=== PATIENT | female | born 1940 | race Caucasian/White ===

== ENCOUNTER 2017-10-08 14:10 | Inpatient (IN) | payer MEDICARE, MEDICAID ==
[~2017-10-08] VITALS: Ht 147.3 cm; Wt 94.3 kg
[~2017-10-08 14:10] MED LIST: ALBU0.63 NEB; DEXT1DRO9 OP; DILT180C89 PO; DOCU-28 PO; FERR325T29 PO; FLUT1DIS7 INH; FURO-149 PO; FURO-150 PO; HYDR-3965 PO; HYPR15DR4 EACHEYE; IPRA3AMP IH; LEVA15HF4 INH; LIDO700A5 TP; LORA10TA7 PO; NORepinephrine 1 mg/ml inj IV ONE; OMEP20CA4 PO; POTA8TAB8 PO; PREG100C PO; SPIR25TA3 PO; TIOT18CA7 IH
[2017-10-08] MEDS ORDERED: normal saline 1000ml 1,000 ML IV ONE (14:48)
[2017-10-08] MEDS ORDERED: ipratropium/albuterol 3ml nebule NEB ONE (14:50)
[2017-10-08 15:20] LABS: ABG BASE EXCESS -9.2 mmol/L (-2.0-3.0); ABG HCO3 14.5 mmol/L (22.0-26.0); ABG OXYGEN SATURATION 83.7 % (95-98); ABG PCO2 (T) 27.1 mmHg (32.0-45.0); ALLEN'S TEST Positive; FCOHb 0.8 % (0.5-1.5); FMetHb 0.1 % (0.3-1.12); FO2Hb 82.9 % (94-100); PATIENT TEMPERATURE 37.9; TOTAL HEMOGLOBIN 12.9 G/dl (12.0-16.0)
[2017-10-08] MEDS ORDERED: normal saline 1000ML IV soln IV ONE (15:40)
[2017-10-08] MEDS ORDERED: levoFLOXACIN-Levaquin 750MG/D5 150 ML IV ONE (15:40)
[2017-10-08] MEDS ORDERED: vancomycin/NS 1 GM ADD-VANTAGE 250 ML IV ONE (15:40)
[2017-10-08 15:41] LABS: INR 1.1 INR; PARTIAL THROMBOPLASTIN TIME 28 SECONDS (22-32); PROTHROMBIN TIME 11.5 SECONDS (9.0-12.0)
[2017-10-08 15:56] LABS: ALANINE AMINOTRANSFERASE 18 U/L (12-78); ALBUMIN 3.1 G/DL (3.4-5.0); ALKALINE PHOSPHATASE 176 IU/L (46-116); ANION GAP 20 (8-16); ASPARTATE AMINO TRANSFERASE 19 U/L (10-37); BILIRUBIN,TOTAL 0.5 MG/DL (0.1-1.0); BLOOD UREA NITROGEN 81 MG/DL (7-18); BUN/CREATININE RATIO 27.6 (6.6-38.0); CALCIUM 7.6 MG/DL (8.5-10.1); CHLORIDE 101 MMOL/L (99-107); CREATININE 2.94 MG/DL (0.40-0.90); GLUCOSE 99 MG/DL (70-104); MAGNESIUM 1.2 MG/DL (1.5-2.4); PHOSPHORUS 5.4 MG/DL (2.3-4.5); POTASSIUM 3.5 MMOL/L (3.5-5.1); SODIUM 139 MMOL/L (135-145); TOTAL CARBON DIOXIDE 18.5 MMOL/L (24-32); TOTAL PROTEIN 6.3 G/DL (6.4-8.2); eGFR 16 ML/MIN
[2017-10-08 16:45] LABS: BASOPHILS % (AUTO) 0.2 % (0-1); EOSINOPHILS % (AUTO) 0.1 % (0-6); HEMATOCRIT 35.7 % (35.0-45.0); HEMOGLOBIN 12.5 g/dl (12.0-16.0); LYMPHOCYTES # (AUTO) 0.4 X10'3 (1.1-4.8); LYMPHOCYTES % (AUTO) 3.2 % (21-51); MEAN CORPUSCULAR HEMOGLOBIN 30.1 PG (27.0-31.0); MONOCYTES # (AUTO) 0.7 X10'3 (0-0.9); MONOCYTES % (AUTO) 5.9 % (2-12); NEUTROPHILS # (AUTO) 11.2 X10'3 (1.8-7.7); NEUTROPHILS % (AUTO) 90.6 % (42-75); RED BLOOD COUNT 4.15 X10'6 (4.20-5.60); RED CELL DISTRIBUTION WIDTH 13.4 % (11.5-14.5); WHITE BLOOD COUNT 12.4 X10'3 (4.5-11.0)
[2017-10-08 17:08] LABS: MEAN PLATELET VOLUME 10.5 FL (7.4-10.4)
[2017-10-08 17:11] LABS: PLATELET COUNT 141 X10'3 (140-440)
[2017-10-08 17:17] LABS: CLARITY,URINE TURBID (Clear); COLOR,URINE STRAW (Yellow); GLUCOSE, URINE NEGATIVE (Neg); KETONES,URINE NEGATIVE (Neg); LEUKOCYTE ESTERASE ,URINE LARGE (Neg); NITRITES, URINE NEGATIVE (Neg); OCCULT BLOOD,URINE SMALL (Neg); PROTEIN,URINE 30 mg/dl (Neg); UROBILINOGEN,URINE 0.2 E.U/dL (0.2-1.0)
[2017-10-08 17:20] LABS: UA COLLECTION TYPE FOLEY CATH
[2017-10-08 17:25] LABS: MUCUS STRANDS NONE SEEN /LPF (Neg); RENAL CELLS, URINE FEW /HPF; SQUAMOUS EPITHELIAL CELL,UR MODERATE /LPF (FEW); TRANSITIONAL EPI CELLS,URINE FEW /HPF
[2017-10-08 17:26] LABS: BACTERIA,URINE 4+ /HPF (Neg); RBC,URINE 0-2 /HPF (0-2); WBC,URINE TNTC /HPF (0-4)
[2017-10-08 17:33] LABS: GIANT PLATELET FEW; LARGE PLATELETS MODERATE; PLATELET ESTIMATE NORMAL; TOTAL CELLS COUNTED 100
[2017-10-08 17:34] LABS: TOXIC GRANULATION 2+; TOXIC VACUOLATION 1+
[2017-10-08] MEDS ORDERED: succinylcholine 20mg/ml inj IV ONE (17:40)
[2017-10-08] MEDS ORDERED: etomidate 2mg/ml inj. IV ONE (17:40)
[2017-10-08] MEDS ORDERED: midazolam 100mg in NS 100ml 100 ML IV ONE (17:40)
[2017-10-08] MEDS ORDERED: MIDAZolam 5mg/ml 2ml vial IV ONE (17:40)
[2017-10-08 17:51] LABS: ABG BASE EXCESS -15.3 mmol/L (-2.0-3.0); ABG HCO3 11.5 mmol/L (22.0-26.0); ABG OXYGEN SATURATION 92.5 % (95-98); ABG PCO2 (T) 30.6 mmHg (32.0-45.0); ABG PH (T) 7.193 (7.350-7.450); ABG PO2 (T) 74.4 mmHg (83-108); ALLEN'S TEST Positive; FCOHb 0.6 % (0.5-1.5); FMetHb 0.1 % (0.3-1.12); FO2Hb 91.9 % (94-100); RESPIRATORY RATE 14 b/min; TOTAL HEMOGLOBIN 12.3 G/dl (12.0-16.0)
[2017-10-08] MEDS ORDERED: piperacillin/tazo 3.375gm/50ml 50 ML IV ONE (18:00)
[2017-10-08] MEDS: NORepinephrine 8mg/ 250ml NS 250 ML IV SCH (18:20)
[2017-10-08] MEDS ORDERED: meropenem inj 500 MG in normal saline 100ml IV soln 100 ML IV STA (18:34)
[2017-10-08] MEDS ORDERED: methylPREDNISolone sod succ 125mg/2ml vial IV ONE (18:55)
[2017-10-08] MEDS ORDERED: ondansetron/PF 4mg/2ml inj IV PRN (19:05)
[2017-10-08] MEDS ORDERED: bisacodyl 10mg suppository rectal RC PRN (19:05)
[2017-10-08] MEDS ORDERED: magnesium 2GM in 50ml NS 50 ML IV PRN (19:05)
[2017-10-08] MEDS ORDERED: potassium Cl 40MEQ/NS 500ml 500 ML IV PRN (19:05)
[2017-10-08] MEDS ORDERED: acetaminophen 325mg tablet PO PRN (19:05)
[2017-10-08] MEDS ORDERED: Neutra Phos packet PO PRN (19:05)
[2017-10-08] MEDS ORDERED: sodium phosphate inj. 30 MMOL in dextrose 5%-water 250 ML IV PRN (19:05)
[2017-10-08] MEDS ORDERED: magnesium Cl slow-release 64mg tablet PO PRN (19:05)
[2017-10-08] MEDS ORDERED: potassium Cl 20 mEq SR tablet PO PRN ×2 (19:05)
[2017-10-08 19:06] LABS: ABG BASE EXCESS -13.5 mmol/L (-2.0-3.0); ABG HCO3 12.6 mmol/L (22.0-26.0); ABG OXYGEN SATURATION 92.5 % (95-98); ABG PCO2 (T) 29.7 mmHg (32.0-45.0); ABG PH (T) 7.242 (7.350-7.450); ABG PO2 (T) 71.6 mmHg (83-108); ALLEN'S TEST Positive; FCOHb 0.4 % (0.5-1.5); FMetHb 0.2 % (0.3-1.12); FO2Hb 91.9 % (94-100); MINUTE VOLUME 12 L/min; PATIENT TEMPERATURE 36.7; PEEP 5 cm H2O; RESPIRATORY RATE 14 b/min; RESPIRATORY RATE (OBSERVED) 22 b/min; TIDAL VOLUME 500 mL; TOTAL HEMOGLOBIN 12.5 G/dl (12.0-16.0)
[2017-10-08] MEDS: sodium bicarbonate (8.4%) inj. 150 MEQ in dextrose 5%-water 1,000 ML IV SCH ×2 (19:15→22:03)
[2017-10-08] MEDS ORDERED: meropenem inj 500 MG in normal saline 100ml IV soln 100 ML IV SCH (20:00)
[2017-10-08] MEDS ORDERED: hydrocortisone sod succ/PF 250mg/2ml inj. IV SCH (20:00)
[2017-10-08] MEDS ORDERED: albumin (Human) 5% 250 ML IV solution IV STA (20:08)
[2017-10-08] MEDS ORDERED: albumin (human) 25% 100 ML IV solution IV ONE (20:10)
[2017-10-08] MEDS ORDERED: vasopressin inj. 60 UNIT in normal saline 100ml IV soln 97 ML IV SCH (20:10)
[2017-10-08] MEDS: magnesium 4gm in 100ml NS 100 ML IV PRN (20:20)
[2017-10-08] MEDS: famotidine/PF 10 mg/ml inj IV SCH (20:20)
[2017-10-08 22:00] VITALS: BP 109/45
[2017-10-08] MEDS: docusate sod 100mg capsule PO SCH (22:03)
[2017-10-08] MEDS: heparin, porcine 5000 units/ml vial SQ SCH (22:03)
[2017-10-08 23:00] VITALS: BP 129/58
[2017-10-08 23:36] LABS: OXYGEN SATURATION (MIXED VEN) 69.7 % (60-80); PO2 MIXED VENOUS (TEMP COR) 41.5 mmHg (35-46)
[2017-10-09] VITALS (24 sets, daily range): BP systolic 93–131; BP diastolic 52–72
[2017-10-09] LABS: ABG BASE EXCESS -13.5 mmol/L (-2.0-3.0); ABG OXYGEN SATURATION 94.8 % (95-98); ABG PCO2 (T) 28.1 mmHg (32.0-45.0); ABG PH (T) 7.251 (7.350-7.450); ABG PO2 (T) 85.3 mmHg (83-108); ALLEN'S TEST Positive; FCOHb 0.3 % (0.5-1.5); FMetHb 0.3 % (0.3-1.12); FO2Hb 94.2 % (94-100); MINUTE VOLUME 12 L/min; PATIENT TEMPERATURE 37.7; PEEP 5 cm H2O; RESPIRATORY RATE 14 b/min; RESPIRATORY RATE (OBSERVED) 22 b/min; TIDAL VOLUME 500 mL; TOTAL HEMOGLOBIN 12.2 G/dl (12.0-16.0)
[2017-10-09] MEDS ORDERED: sodium bicarbonate (8.4%) 1 mEq/ml syringe IV ONE (00:10)
[2017-10-09] MEDS ORDERED: sodium bicarbonate (8.4%) 1 mEq/ml syringe ONE (00:20)
[2017-10-09] MEDS: VANCOMYCIN LEVEL IV SCH (02:08)
[2017-10-09] MEDS: hydrocortisone sod succ/PF 100mg/2ml inj. IV SCH ×4 (02:10→19:32)
[2017-10-09 02:20] LABS: BASOPHILS % (AUTO) 0 % (0-1); EOSINOPHILS % (AUTO) 0 % (0-6); HEMATOCRIT 34.1 % (35.0-45.0); HEMOGLOBIN 11.7 g/dl (12.0-16.0); LYMPHOCYTES # (AUTO) 0.2 X10'3 (1.1-4.8); LYMPHOCYTES % (AUTO) 1.4 % (21-51); MEAN CORPUSCULAR HEMOGLOBIN 29.9 PG (27.0-31.0); MEAN CORPUSCULAR HGB CONC 34.3 % (33.0-36.5); MEAN CORPUSCULAR VOLUME 87.2 FL (78-98); MEAN PLATELET VOLUME 12.4 FL (7.4-10.4); MONOCYTES % (AUTO) 6.2 % (2-12); NEUTROPHILS # (AUTO) 15.7 X10'3 (1.8-7.7); NEUTROPHILS % (AUTO) 92.4 % (42-75); PLATELET COUNT 135 X10'3 (140-440); RED BLOOD COUNT 3.91 X10'6 (4.20-5.60); RED CELL DISTRIBUTION WIDTH 13.9 % (11.5-14.5)
[2017-10-09] MEDS ORDERED: glucagon, human recombinant 1mg kit SUBCUT PRN (02:25)
[2017-10-09] MEDS ORDERED: insulin Lispro (HumaLOG) vial - multi-dose SQ SCH (02:25)
[2017-10-09] MEDS ORDERED: dextrose 50%-water 50ml dispensing syringe IV PRN (02:25)
[2017-10-09] MEDS ORDERED: dextrose ORAL solution 15 GM/59 ML bottle PO PRN ×2 (02:25)
[2017-10-09] MEDS ORDERED: MESSAGE TO PHARMACY PO ONE (02:25)
[2017-10-09 02:38] LABS: ALANINE AMINOTRANSFERASE 26 U/L (12-78); ALBUMIN 2.9 G/DL (3.4-5.0); ALBUMIN/GLOBULIN RATIO 1.2 (1.1-1.5); ALKALINE PHOSPHATASE 109 IU/L (46-116); ANION GAP 22 (8-16); ASPARTATE AMINO TRANSFERASE 34 U/L (10-37); BLOOD UREA NITROGEN 77 MG/DL (7-18); BUN/CREATININE RATIO 27.3 (6.6-38.0); CALCIUM 6.3 MG/DL (8.5-10.1); CHLORIDE 102 MMOL/L (99-107); CREATININE 2.82 MG/DL (0.40-0.90); GLUCOSE 211 MG/DL (70-104); MAGNESIUM 2.2 MG/DL (1.5-2.4); PHOSPHORUS 4.8 MG/DL (2.3-4.5); SODIUM 141 MMOL/L (135-145); TOTAL CARBON DIOXIDE 17.2 MMOL/L (24-32); TOTAL CELLS COUNTED 100; TOTAL PROTEIN 5.3 G/DL (6.4-8.2); VANCOMYCIN,RANDOM 12.6 UG/ML; eGFR 16 ML/MIN
[2017-10-09 02:39] LABS: GIANT PLATELET FEW; LARGE PLATELETS FEW; PLATELET ESTIMATE NORMAL; TOXIC GRANULATION 2+; TOXIC VACUOLATION 1+
[2017-10-09] MEDS: NORepinephrine 8mg/ 250ml NS 250 ML IV SCH ×5 (02:39→23:32)
[2017-10-09 02:48] LABS: HEMOGLOBIN A1C 5.4 % (4.5-6.2)
[2017-10-09] MEDS ORDERED: potassium Cl 40MEQ/250ML bag 500 ML IV ONE (03:15)
[2017-10-09] MEDS ORDERED: insulin Lispro (HumaLOG) vial - multi-dose SQ ONE (03:15)
[2017-10-09] MEDS: potassium Cl 40MEQ/250ML bag 250 ML IV PRN ×2 (03:19→06:02)
[2017-10-09 03:46] LABS: ABG BASE EXCESS -9.8 mmol/L (-2.0-3.0); ABG HCO3 14.4 mmol/L (22.0-26.0); ABG PCO2 (T) 29.1 mmHg (32.0-45.0); ABG PO2 (T) 114.4 mmHg (83-108); ALLEN'S TEST Positive; FCOHb 0.3 % (0.5-1.5); FMetHb 0.2 % (0.3-1.12); FO2Hb 96.5 % (94-100); MINUTE VOLUME 12 L/min; PATIENT TEMPERATURE 38.6; PEEP 5 cm H2O; RESPIRATORY RATE 14 b/min; RESPIRATORY RATE (OBSERVED) 22 b/min; TIDAL VOLUME 500 mL; TOTAL HEMOGLOBIN 12.2 G/dl (12.0-16.0)
[2017-10-09] MEDS: acetaminophen 325mg tablet PO PRN ×3 (05:36→22:42)
[2017-10-09] MEDS: sodium bicarbonate (8.4%) inj. 150 MEQ in dextrose 5%-water 1,000 ML IV SCH (05:52)
[2017-10-09] MEDS ORDERED: vancomycin/NS 1 GM ADD-VANTAGE 250 ML IV PRN (06:00)
[2017-10-09] MEDS ORDERED: vancomycin/NS 1 GM ADD-VANTAGE 250 ML IV ONE (08:25)
[2017-10-09] MEDS: meropenem inj 500 MG in normal saline 100ml IV soln 100 ML IV SCH ×2 (09:30→19:31)
[2017-10-09] MEDS: famotidine/PF 10 mg/ml inj IV SCH ×2 (09:30→19:31)
[2017-10-09] MEDS: docusate sod 100mg capsule PO SCH ×2 (09:31→19:33)
[2017-10-09] MEDS: heparin, porcine 5000 units/ml vial SQ SCH ×2 (09:31→19:32)
[2017-10-09] MEDS: insulin regular, human vial - multi-dose SQ SCH ×2 (14:00→20:14)
[2017-10-09] MEDS ORDERED: hypromellose ophthalmic drops EACHEYE PRN (14:25)
[2017-10-09] MEDS ORDERED: albuterol 2.5 MG/3 ML nebule NEB PRN (14:55)
[2017-10-09] MEDS ORDERED: polyvinyl alcohol ophthalmic drops 15ml bottle EACHEYE PRN (15:02)
[2017-10-09] MEDS: ipratropium/albuterol 3ml nebule IH SCH ×2 (16:30→21:15)
[2017-10-09] MEDS: polyvinyl alcohol ophthalmic drops 15ml bottle EACHEYE SCH (19:30)
[2017-10-09] MEDS: silver sulfadiazine cream 400gm jar TP SCH (19:30)
[2017-10-09] MEDS: lactobacillus rhamnosus 10,000 MMU CELLS/CAPSULE PO SCH (19:30)
[2017-10-09] MEDS: pregabalin 75mg capsule PO SCH (19:31)
[2017-10-09] MEDS: pregabalin 25mg capsule PO SCH (19:31)
[2017-10-09] MEDS ORDERED: docusate sod 100mg capsule PO SCH (20:00)
[2017-10-09] MEDS: insulin glargine (Lantus) pen - multi-dose SQ SCH (20:15)
[2017-10-09] MEDS ORDERED: non-formulary drug (Albuterol Sulfate 1 VIAL) NEB SCH (21:00)
[2017-10-09] MEDS ORDERED: furosemide 20MG tablet PO PRN (21:00)
[2017-10-09 23:03] LABS: ALBUMIN 2.3 G/DL (3.4-5.0); ANION GAP 18 (8-16); BLOOD UREA NITROGEN 71 MG/DL (7-18); BUN/CREATININE RATIO 23.4 (6.6-38.0); CHLORIDE 103 MMOL/L (99-107); CREATININE 3.03 MG/DL (0.40-0.90); GLUCOSE 297 MG/DL (70-104); MAGNESIUM 1.7 MG/DL (1.5-2.4); PHOSPHORUS 4.8 MG/DL (2.3-4.5); POTASSIUM 3.9 MMOL/L (3.5-5.1); SODIUM 142 MMOL/L (135-145); TOTAL CARBON DIOXIDE 21.1 MMOL/L (24-32); eGFR 15 ML/MIN
[2017-10-09 23:14] LABS: CALCIUM 5.9 MG/DL (8.5-10.1)
[2017-10-10] VITALS (24 sets, daily range): BP systolic 90–155; BP diastolic 55–81
[2017-10-10] MEDS ORDERED: calcium chloride 100 MG/1 ML inj IV ONE (00:15)
[2017-10-10] MEDS: polyvinyl alcohol ophthalmic drops 15ml bottle EACHEYE SCH ×4 (02:28→20:37)
[2017-10-10] MEDS: hydrocortisone sod succ/PF 100mg/2ml inj. IV SCH ×4 (02:28→20:27)
[2017-10-10] MEDS: insulin regular, human vial - multi-dose SQ SCH ×4 (02:30→20:43)
[2017-10-10] MEDS: VANCOMYCIN LEVEL IV SCH (02:31)
[2017-10-10 02:51] LABS: ALANINE AMINOTRANSFERASE 39 U/L (12-78); ALBUMIN 2.4 G/DL (3.4-5.0); ALBUMIN/GLOBULIN RATIO 0.9 (1.1-1.5); ALKALINE PHOSPHATASE 93 IU/L (46-116); ANION GAP 16 (8-16); ASPARTATE AMINO TRANSFERASE 37 U/L (10-37); BILIRUBIN,TOTAL 0.8 MG/DL (0.1-1.0); BLOOD UREA NITROGEN 72 MG/DL (7-18); BUN/CREATININE RATIO 23.8 (6.6-38.0); CALCIUM 6.8 MG/DL (8.5-10.1); CHLORIDE 103 MMOL/L (99-107); CREATININE 3.03 MG/DL (0.40-0.90); GLUCOSE 296 MG/DL (70-104); MAGNESIUM 1.8 MG/DL (1.5-2.4); PHOSPHORUS 4.8 MG/DL (2.3-4.5); POTASSIUM 3.7 MMOL/L (3.5-5.1); SODIUM 141 MMOL/L (135-145); TOTAL CARBON DIOXIDE 22.1 MMOL/L (24-32); TOTAL PROTEIN 5.1 G/DL (6.4-8.2); VANCOMYCIN,RANDOM 19.5 UG/ML; eGFR 15 ML/MIN
[2017-10-10 02:59] LABS: BASOPHILS % (AUTO) 0 % (0-1); EOSINOPHILS % (AUTO) 0 % (0-6); HEMATOCRIT 32.7 % (35.0-45.0); HEMOGLOBIN 11.2 g/dl (12.0-16.0); LYMPHOCYTES # (AUTO) 0.5 X10'3 (1.1-4.8); LYMPHOCYTES % (AUTO) 1.7 % (21-51); MEAN CORPUSCULAR HEMOGLOBIN 29.9 PG (27.0-31.0); MEAN CORPUSCULAR HGB CONC 34.3 % (33.0-36.5); MEAN CORPUSCULAR VOLUME 87.4 FL (78-98); MEAN PLATELET VOLUME 12.1 FL (7.4-10.4); MONOCYTES # (AUTO) 1.4 X10'3 (0-0.9); MONOCYTES % (AUTO) 5.2 % (2-12); NEUTROPHILS # (AUTO) 25.9 X10'3 (1.8-7.7); NEUTROPHILS % (AUTO) 93.1 % (42-75); PLATELET COUNT 104 X10'3 (140-440); RED BLOOD COUNT 3.75 X10'6 (4.20-5.60); RED CELL DISTRIBUTION WIDTH 14.4 % (11.5-14.5)
[2017-10-10 03:10] LABS: WHITE BLOOD COUNT 27.9 X10'3 (4.5-11.0)
[2017-10-10 03:11] LABS: ABG BASE EXCESS -2.7 mmol/L (-2.0-3.0); ABG HCO3 20.6 mmol/L (22.0-26.0); ABG PCO2 (T) 31.2 mmHg (32.0-45.0); ABG PH (T) 7.437 (7.350-7.450); ABG PO2 (T) 76.2 mmHg (83-108); ALLEN'S TEST Positive; FCOHb 0.3 % (0.5-1.5); FMetHb 0.2 % (0.3-1.12); FO2Hb 94.5 % (94-100); MINUTE VOLUME 10 L/min; PEEP 5 cm H2O; RESPIRATORY RATE 14 b/min; RESPIRATORY RATE (OBSERVED) 18 b/min; TIDAL VOLUME 500 mL; TOTAL HEMOGLOBIN 12.1 G/dl (12.0-16.0)
[2017-10-10 03:53] LABS: PLATELET ESTIMATE DECREASED; TOTAL CELLS COUNTED 100
[2017-10-10 03:54] LABS: LARGE PLATELETS FEW; TOXIC GRANULATION 2+; TOXIC VACUOLATION 1+
[2017-10-10] MEDS: midazolam 100mg in NS 100ml 100 ML IV PRN ×2 (04:17→08:34)
[2017-10-10] MEDS: NORepinephrine 8mg/ 250ml NS 250 ML IV SCH ×3 (05:35→22:22)
[2017-10-10] MEDS: ipratropium/albuterol 3ml nebule IH SCH ×4 (07:01→19:16)
[2017-10-10] MEDS: lactobacillus rhamnosus 10,000 MMU CELLS/CAPSULE PO SCH ×2 (07:06→16:36)
[2017-10-10] MEDS: LIDOcaine 5% patch TP SCH (07:35)
[2017-10-10] MEDS: loratadine 10mg tablet PO SCH (07:44)
[2017-10-10] MEDS: famotidine/PF 10 mg/ml inj IV SCH (07:44)
[2017-10-10] MEDS: diltiazem CD 180mg cap (once-daily) PO SCH (07:45)
[2017-10-10] MEDS: pregabalin 25mg capsule PO SCH ×2 (07:45→20:27)
[2017-10-10] MEDS: heparin, porcine 5000 units/ml vial SQ SCH (07:45)
[2017-10-10] MEDS: pregabalin 75mg capsule PO SCH ×2 (07:45→20:28)
[2017-10-10] MEDS: spironolactone 25 MG tablet PO SCH (07:45)
[2017-10-10] MEDS: ferrous sulfate 325mg tablet PO SCH (07:46)
[2017-10-10] MEDS: docusate sod 100mg capsule PO SCH (07:46)
[2017-10-10] MEDS: furosemide 40mg tablet PO SCH ×2 (07:46→13:32)
[2017-10-10] MEDS: silver sulfadiazine cream 400gm jar TP SCH (07:47)
[2017-10-10] MEDS: meropenem inj 500 MG in normal saline 100ml IV soln 100 ML IV SCH ×2 (07:47→20:27)
[2017-10-10] MEDS ORDERED: fluticasone/vilanterol 200mcg/25mcg inhaler IH SCH (08:00)
[2017-10-10] MEDS ORDERED: pantoprazole 40mg Tablet.DR PO SCH (08:00)
[2017-10-10] MEDS ORDERED: non-formulary drug (Tiotropium Bromide* (Spiriva*) 18 MCG) IH SCH (08:00)
[2017-10-10] MEDS: sodium bicarbonate (8.4%) inj. 150 MEQ in dextrose 5%-water 1,000 ML IV SCH ×2 (08:25→19:01)
[2017-10-10] MEDS ORDERED: FLU VACC QS2017-18 36MOS UP/PF 60 MCG/0.5 ML SYRINGE IMVAC ONE (10:00)
[2017-10-10] MEDS ORDERED: metoprolol tartrate 1mg/ml inj IV ONE (18:20)
[2017-10-10] MEDS ORDERED: lactulose 20gm/30ml cup PO PRN (19:05)
[2017-10-10] MEDS: docusate sodium 100mg/10ml UD cup NG SCH (20:00)
[2017-10-10] MEDS: enoxaparin 60mg/0.6ml syringe SUBCUT SCH (20:43)
[2017-10-10] MEDS: insulin glargine (Lantus) pen - multi-dose SQ SCH (22:26)
[2017-10-10] MEDS: ipratropium/albuterol 3ml nebule NEB PRN (23:16)
[2017-10-11] VITALS (24 sets, daily range): BP systolic 90–119; BP diastolic 51–67
[2017-10-11] MEDS: insulin regular, human vial - multi-dose SQ SCH ×2 (02:23→21:01)
[2017-10-11] MEDS: hydrocortisone sod succ/PF 100mg/2ml inj. IV SCH ×4 (02:24→20:30)
[2017-10-11] MEDS: polyvinyl alcohol ophthalmic drops 15ml bottle EACHEYE SCH ×4 (02:24→20:30)
[2017-10-11] MEDS: VANCOMYCIN LEVEL IV SCH (03:00)
[2017-10-11] MEDS: ipratropium/albuterol 3ml nebule NEB PRN ×2 (03:26→11:31)
[2017-10-11 03:41] LABS: ABG BASE EXCESS 5.4 mmol/L (-2.0-3.0); ABG HCO3 28.2 mmol/L (22.0-26.0); ABG OXYGEN SATURATION 96.4 % (95-98); ABG PCO2 (T) 32.7 mmHg (32.0-45.0); ABG PO2 (T) 80.3 mmHg (83-108); ALLEN'S TEST Positive; FCOHb 0.3 % (0.5-1.5); FMetHb 0.1 % (0.3-1.12); MINUTE VOLUME 10 L/min; PATIENT TEMPERATURE 35.8; PEEP 5 cm H2O; RESPIRATORY RATE 14 b/min; RESPIRATORY RATE (OBSERVED) 16 b/min; TIDAL VOLUME 500 mL; TOTAL HEMOGLOBIN 10.1 G/dl (12.0-16.0)
[2017-10-11 04:10] LABS: BASOPHILS % (AUTO) 0 % (0-1); EOSINOPHILS % (AUTO) 0 % (0-6); HEMATOCRIT 27.8 % (35.0-45.0); HEMOGLOBIN 9.4 g/dl (12.0-16.0); MEAN CORPUSCULAR VOLUME 87.4 FL (78-98); NEUTROPHILS # (AUTO) 20.6 X10'3 (1.8-7.7); RED BLOOD COUNT 3.18 X10'6 (4.20-5.60)
[2017-10-11 04:12] LABS: LYMPHOCYTES # (AUTO) 0.5 X10'3 (1.1-4.8); LYMPHOCYTES % (AUTO) 2.2 % (21-51); MEAN CORPUSCULAR HEMOGLOBIN 29.6 PG (27.0-31.0); MEAN CORPUSCULAR HGB CONC 33.8 % (33.0-36.5); MONOCYTES # (AUTO) 0.6 X10'3 (0-0.9); MONOCYTES % (AUTO) 2.9 % (2-12); NEUTROPHILS % (AUTO) 94.9 % (42-75); PLATELET COUNT 65 X10'3 (140-440); RED CELL DISTRIBUTION WIDTH 14.1 % (11.5-14.5); WHITE BLOOD COUNT 21.7 X10'3 (4.5-11.0)
[2017-10-11 04:32] LABS: ALANINE AMINOTRANSFERASE 37 U/L (12-78); ALBUMIN/GLOBULIN RATIO 0.7 (1.1-1.5); ALKALINE PHOSPHATASE 94 IU/L (46-116); ANION GAP 11 (8-16); ASPARTATE AMINO TRANSFERASE 25 U/L (10-37); BILIRUBIN,TOTAL 0.6 MG/DL (0.1-1.0); BLOOD UREA NITROGEN 72 MG/DL (7-18); BUN/CREATININE RATIO 28.3 (6.6-38.0); CALCIUM 6.1 MG/DL (8.5-10.1); CHLORIDE 102 MMOL/L (99-107); CREATININE 2.54 MG/DL (0.40-0.90); GLUCOSE 137 MG/DL (70-104); MAGNESIUM 1.4 MG/DL (1.5-2.4); PHOSPHORUS 2.6 MG/DL (2.3-4.5); PREALBUMIN 11.1 MG/DL (19-36); SODIUM 143 MMOL/L (135-145); TOTAL CARBON DIOXIDE 30.2 MMOL/L (24-32); TOTAL PROTEIN 4.8 G/DL (6.4-8.2); VANCOMYCIN,RANDOM 13.8 UG/ML; eGFR 18 ML/MIN
[2017-10-11 04:39] LABS: POTASSIUM 2.2 MMOL/L (3.5-5.1)
[2017-10-11] MEDS: sodium bicarbonate (8.4%) inj. 150 MEQ in dextrose 5%-water 1,000 ML IV SCH (04:45)
[2017-10-11] MEDS ORDERED: potassium Cl 40MEQ/250ML bag 500 ML IV ONE (04:50)
[2017-10-11] MEDS: potassium Cl 40MEQ/250ML bag 250 ML IV PRN ×4 (04:55→17:15)
[2017-10-11 05:12] LABS: BANDS% (MANUAL) 9 % (0-10); LYMPHOCYTES % (MANUAL) 2 % (21-51); METAMYLEOCYTES% (MANUAL) 1 % (0-0); MONOCYTES % (MANUAL) 5 % (2-12); NEUTROPHILS % (MANUAL) 83 % (42-75); PLATELET ESTIMATE DECREASED; TOTAL CELLS COUNTED 100
[2017-10-11 05:13] LABS: LARGE PLATELETS FEW; TOXIC VACUOLATION 1+
[2017-10-11] MEDS: magnesium 4gm in 100ml NS 100 ML IV PRN (06:06)
[2017-10-11] MEDS: ipratropium/albuterol 3ml nebule IH SCH ×3 (07:18→18:34)
[2017-10-11] MEDS: enoxaparin 60mg/0.6ml syringe SUBCUT SCH (08:00)
[2017-10-11] MEDS: furosemide 40mg tablet PO SCH ×2 (08:00→14:00)
[2017-10-11] MEDS: diltiazem CD 180mg cap (once-daily) PO SCH ×2 (08:00→08:42)
[2017-10-11] MEDS: spironolactone 25 MG tablet PO SCH (08:00)
[2017-10-11] MEDS: docusate sodium 100mg/10ml UD cup NG SCH ×2 (08:00→20:00)
[2017-10-11] MEDS: lactobacillus rhamnosus 10,000 MMU CELLS/CAPSULE PO SCH ×2 (08:25→17:15)
[2017-10-11] MEDS ORDERED: vancomycin/NS 1 GM ADD-VANTAGE 250 ML IV ONE (08:30)
[2017-10-11] MEDS: meropenem inj 500 MG in normal saline 100ml IV soln 100 ML IV SCH ×2 (08:36→20:30)
[2017-10-11] MEDS: ferrous sulfate 325mg tablet PO SCH (08:42)
[2017-10-11] MEDS: pregabalin 75mg capsule PO SCH ×2 (08:42→20:30)
[2017-10-11] MEDS: loratadine 10mg tablet PO SCH (08:42)
[2017-10-11] MEDS: pregabalin 25mg capsule PO SCH ×2 (08:42→20:30)
[2017-10-11] MEDS: silver sulfadiazine cream 400gm jar TP SCH (08:43)
[2017-10-11] MEDS: LIDOcaine 5% patch TP SCH (08:47)
[2017-10-11] MEDS ORDERED: FLU VACC QS2017-18 36MOS UP/PF 60 MCG/0.5 ML SYRINGE IMVAC ONE (10:00)
[2017-10-11 13:22] LABS: MAGNESIUM 3.2 MG/DL (1.5-2.4)
[2017-10-11 13:30] LABS: POTASSIUM 2.9 MMOL/L (3.5-5.1)
[2017-10-11] MEDS: NORepinephrine 8mg/ 250ml NS 250 ML IV SCH (16:53)
[2017-10-11] MEDS: insulin glargine (Lantus) pen - multi-dose SQ SCH (21:00)
[2017-10-11] MEDS ORDERED: potassium Cl 40MEQ/250ML bag 250 ML IV ONE (23:25)
[2017-10-12] VITALS (24 sets, daily range): BP systolic 86–121; BP diastolic 52–72
[2017-10-12] MEDS: potassium Cl 40MEQ/250ML bag 250 ML IV PRN ×2 (00:10→19:49)
[2017-10-12] MEDS: polyvinyl alcohol ophthalmic drops 15ml bottle EACHEYE SCH ×4 (02:38→22:04)
[2017-10-12] MEDS: VANCOMYCIN LEVEL IV SCH (02:38)
[2017-10-12] MEDS: hydrocortisone sod succ/PF 100mg/2ml inj. IV SCH ×4 (02:38→20:14)
[2017-10-12] MEDS: insulin regular, human vial - multi-dose SQ SCH ×4 (02:47→22:06)
[2017-10-12 04:41] LABS: ABG BASE EXCESS 0.8 mmol/L (-2.0-3.0); ABG HCO3 22.9 mmol/L (22.0-26.0); ABG OXYGEN SATURATION 95.6 % (95-98); ABG PCO2 (T) 28.8 mmHg (32.0-45.0); ABG PH (T) 7.519 (7.350-7.450); ABG PO2 (T) 82.6 mmHg (83-108); ALLEN'S TEST Positive; FCOHb 0.3 % (0.5-1.5); FO2Hb 95.3 % (94-100); MINUTE VOLUME 8 L/min; PATIENT TEMPERATURE 37.5; PEEP 5 cm H2O; RESPIRATORY RATE 12 b/min; RESPIRATORY RATE (OBSERVED) 16 b/min; TIDAL VOLUME 500 mL; TOTAL HEMOGLOBIN 10.3 G/dl (12.0-16.0)
[2017-10-12 06:50] LABS: HEMATOCRIT 28.9 % (35.0-45.0); HEMOGLOBIN 9.8 g/dl (12.0-16.0); MEAN CORPUSCULAR HEMOGLOBIN 29.5 PG (27.0-31.0); MEAN CORPUSCULAR HGB CONC 33.9 % (33.0-36.5); MEAN CORPUSCULAR VOLUME 87.1 FL (78-98); MEAN PLATELET VOLUME 12.7 FL (7.4-10.4); PLATELET COUNT 63 X10'3 (140-440); RED BLOOD COUNT 3.32 X10'6 (4.20-5.60); RED CELL DISTRIBUTION WIDTH 14.2 % (11.5-14.5)
[2017-10-12 06:58] LABS: WHITE BLOOD COUNT 25.9 X10'3 (4.5-11.0)
[2017-10-12] MEDS: ipratropium/albuterol 3ml nebule IH SCH ×4 (07:09→18:29)
[2017-10-12 07:21] LABS: ALANINE AMINOTRANSFERASE 36 U/L (12-78); ALBUMIN 1.9 G/DL (3.4-5.0); ALBUMIN/GLOBULIN RATIO 0.6 (1.1-1.5); ALKALINE PHOSPHATASE 126 IU/L (46-116); ANION GAP 13 (8-16); ASPARTATE AMINO TRANSFERASE 23 U/L (10-37); BILIRUBIN,TOTAL 0.5 MG/DL (0.1-1.0); BLOOD UREA NITROGEN 79 MG/DL (7-18); BUN/CREATININE RATIO 36.4 (6.6-38.0); CALCIUM 7.1 MG/DL (8.5-10.1); CHLORIDE 112 MMOL/L (99-107); CREATININE 2.17 MG/DL (0.40-0.90); GLUCOSE 132 MG/DL (70-104); MAGNESIUM 2.9 MG/DL (1.5-2.4); PHOSPHORUS 1.5 MG/DL (2.3-4.5); POTASSIUM 3.5 MMOL/L (3.5-5.1); SODIUM 149 MMOL/L (135-145); TOTAL CARBON DIOXIDE 24.2 MMOL/L (24-32); VANCOMYCIN,RANDOM 21.4 UG/ML; eGFR 22 ML/MIN
[2017-10-12 07:53] LABS: PLATELET ESTIMATE DECREASED; TOTAL CELLS COUNTED 100
[2017-10-12] MEDS: docusate sodium 100mg/10ml UD cup NG SCH ×2 (08:00→20:00)
[2017-10-12] MEDS: spironolactone 25 MG tablet PO SCH (08:00)
[2017-10-12] MEDS: furosemide 40mg tablet PO SCH (08:00)
[2017-10-12] MEDS: diltiazem CD 180mg cap (once-daily) PO SCH (08:00)
[2017-10-12] MEDS: lactobacillus rhamnosus 10,000 MMU CELLS/CAPSULE PO SCH ×2 (08:03→20:15)
[2017-10-12] MEDS: ferrous sulfate 325mg tablet PO SCH (08:04)
[2017-10-12] MEDS: loratadine 10mg tablet PO SCH (08:04)
[2017-10-12] MEDS: pregabalin 25mg capsule PO SCH ×2 (08:04→20:14)
[2017-10-12] MEDS: pregabalin 75mg capsule PO SCH ×2 (08:04→20:14)
[2017-10-12] MEDS: meropenem inj 500 MG in normal saline 100ml IV soln 100 ML IV SCH ×3 (08:05→23:44)
[2017-10-12] MEDS: silver sulfadiazine cream 400gm jar TP SCH (08:07)
[2017-10-12] MEDS: LIDOcaine 5% patch TP SCH (09:01)
[2017-10-12] MEDS: sodium phosphate inj. 15 MMOL in dextrose 5%-water 150 ML IV PRN ×2 (09:07→20:23)
[2017-10-12] MEDS: levoTHYROXINE sod inj. 100mcg/5 ml vial IV SCH (12:11)
[2017-10-12] MEDS ORDERED: LEVO100T PO (12:45)
[2017-10-12] MEDS: NORepinephrine 8mg/ 250ml NS 250 ML IV SCH (15:33)
[2017-10-12 18:22] LABS: MAGNESIUM 2.8 MG/DL (1.5-2.4); PHOSPHORUS 2.1 MG/DL (2.3-4.5)
[2017-10-12 18:23] LABS: POTASSIUM 2.8 MMOL/L (3.5-5.1)
[2017-10-12] MEDS: insulin glargine (Lantus) pen - multi-dose SQ SCH (22:08)
[2017-10-13] VITALS (24 sets, daily range): BP systolic 88–133; BP diastolic 53–80
[2017-10-13] MEDS: potassium Cl 40MEQ/250ML bag 250 ML IV PRN ×2 (00:26→17:57)
[2017-10-13] MEDS: hydrocortisone sod succ/PF 100mg/2ml inj. IV SCH ×4 (01:56→19:40)
[2017-10-13] MEDS: polyvinyl alcohol ophthalmic drops 15ml bottle EACHEYE SCH ×4 (01:57→19:40)
[2017-10-13] MEDS: insulin regular, human vial - multi-dose SQ SCH ×4 (02:02→20:52)
[2017-10-13 03:10] LABS: ABG HCO3 21.4 mmol/L (22.0-26.0); ABG OXYGEN SATURATION 96.2 % (95-98); ABG PCO2 (T) 28.1 mmHg (32.0-45.0); ABG PO2 (T) 89.6 mmHg (83-108); ALLEN'S TEST Positive; FCOHb 0.3 % (0.5-1.5); FMetHb 0.1 % (0.3-1.12); FO2Hb 95.8 % (94-100); MINUTE VOLUME 8 L/min; PATIENT TEMPERATURE 36.8; PEEP 5 cm H2O; RESPIRATORY RATE 12 b/min; RESPIRATORY RATE (OBSERVED) 15 b/min; TIDAL VOLUME 500 mL; TOTAL HEMOGLOBIN 10.4 G/dl (12.0-16.0)
[2017-10-13 05:17] LABS: BASOPHILS % (AUTO) 0 % (0-1); EOSINOPHILS % (AUTO) 0 % (0-6); HEMATOCRIT 29.2 % (35.0-45.0); HEMOGLOBIN 9.8 g/dl (12.0-16.0); LYMPHOCYTES # (AUTO) 0.5 X10'3 (1.1-4.8); LYMPHOCYTES % (AUTO) 2.4 % (21-51); MEAN CORPUSCULAR HEMOGLOBIN 29.2 PG (27.0-31.0); MEAN CORPUSCULAR HGB CONC 33.5 % (33.0-36.5); MEAN CORPUSCULAR VOLUME 87.3 FL (78-98); MEAN PLATELET VOLUME 11.2 FL (7.4-10.4); MONOCYTES # (AUTO) 0.7 X10'3 (0-0.9); MONOCYTES % (AUTO) 3.2 % (2-12); NEUTROPHILS # (AUTO) 20.4 X10'3 (1.8-7.7); NEUTROPHILS % (AUTO) 94.4 % (42-75); PLATELET COUNT 53 X10'3 (140-440); RED BLOOD COUNT 3.34 X10'6 (4.20-5.60); RED CELL DISTRIBUTION WIDTH 14.6 % (11.5-14.5); WHITE BLOOD COUNT 21.6 X10'3 (4.5-11.0)
[2017-10-13 06:14] LABS: ALANINE AMINOTRANSFERASE 30 U/L (12-78); ALBUMIN 1.7 G/DL (3.4-5.0); ALBUMIN/GLOBULIN RATIO 0.5 (1.1-1.5); ALKALINE PHOSPHATASE 125 IU/L (46-116); ANION GAP 13 (8-16); ASPARTATE AMINO TRANSFERASE 19 U/L (10-37); BILIRUBIN,TOTAL 0.4 MG/DL (0.1-1.0); BLOOD UREA NITROGEN 86 MG/DL (7-18); BUN/CREATININE RATIO 43.4 (6.6-38.0); CALCIUM 7.4 MG/DL (8.5-10.1); CHLORIDE 117 MMOL/L (99-107); CREATININE 1.98 MG/DL (0.40-0.90); GLUCOSE 145 MG/DL (70-104); MAGNESIUM 2.7 MG/DL (1.5-2.4); PHOSPHORUS 3.2 MG/DL (2.3-4.5); POTASSIUM 3.6 MMOL/L (3.5-5.1); SODIUM 153 MMOL/L (135-145); TOTAL CARBON DIOXIDE 23.5 MMOL/L (24-32); TOTAL PROTEIN 4.9 G/DL (6.4-8.2); eGFR 24 ML/MIN
[2017-10-13 07:09] LABS: LARGE PLATELETS FEW; PLATELET ESTIMATE DECREASED
[2017-10-13] MEDS: ipratropium/albuterol 3ml nebule IH SCH ×4 (07:33→18:26)
[2017-10-13] MEDS: docusate sodium 100mg/10ml UD cup NG SCH ×2 (08:00→19:41)
[2017-10-13] MEDS: pregabalin 75mg capsule PO SCH ×2 (09:09→19:40)
[2017-10-13] MEDS: pregabalin 25mg capsule PO SCH ×2 (09:09→19:40)
[2017-10-13] MEDS: levoTHYROXINE sod inj. 100mcg/5 ml vial IV SCH (09:10)
[2017-10-13] MEDS: ferrous sulfate 325mg tablet PO SCH (09:10)
[2017-10-13] MEDS: loratadine 10mg tablet PO SCH (09:10)
[2017-10-13] MEDS: lactobacillus rhamnosus 10,000 MMU CELLS/CAPSULE PO SCH ×2 (09:10→19:40)
[2017-10-13] MEDS: meropenem inj 500 MG in normal saline 100ml IV soln 100 ML IV SCH ×2 (09:11→15:43)
[2017-10-13] MEDS: silver sulfadiazine cream 400gm jar TP SCH (09:12)
[2017-10-13] MEDS: LIDOcaine 5% patch TP SCH (09:12)
[2017-10-13 16:39] LABS: MAGNESIUM 2.7 MG/DL (1.5-2.4); POTASSIUM 3.1 MMOL/L (3.5-5.1)
[2017-10-13] MEDS: NORepinephrine 8mg/ 250ml NS 250 ML IV SCH (18:07)
[2017-10-13] MEDS ORDERED: dextrose 5% water 500ml 500 ML IV ONE (19:30)
[2017-10-13] MEDS: diltiazem 30mg tablet PO SCH (19:40)
[2017-10-13] MEDS: insulin glargine (Lantus) pen - multi-dose SQ SCH (20:54)
[2017-10-14] VITALS (23 sets, daily range): BP systolic 96–128; BP diastolic 50–91
[2017-10-14] MEDS: meropenem inj 500 MG in normal saline 100ml IV soln 100 ML IV SCH ×3 (00:46→15:42)
[2017-10-14] MEDS: diltiazem 30mg tablet PO SCH ×4 (01:52→20:55)
[2017-10-14] MEDS: polyvinyl alcohol ophthalmic drops 15ml bottle EACHEYE SCH ×4 (01:52→20:56)
[2017-10-14] MEDS: hydrocortisone sod succ/PF 100mg/2ml inj. IV SCH ×3 (01:52→14:58)
[2017-10-14] MEDS: insulin regular, human vial - multi-dose SQ SCH ×3 (01:57→21:25)
[2017-10-14 03:03] LABS: BASOPHILS % (AUTO) 0 % (0-1); EOSINOPHILS # (AUTO) 0.3 X10'3 (0-0.9); EOSINOPHILS % (AUTO) 1.3 % (0-6); HEMATOCRIT 28.4 % (35.0-45.0); HEMOGLOBIN 9.5 g/dl (12.0-16.0); LYMPHOCYTES # (AUTO) 0.6 X10'3 (1.1-4.8); MEAN CORPUSCULAR HEMOGLOBIN 29.1 PG (27.0-31.0); MEAN CORPUSCULAR HGB CONC 33.4 % (33.0-36.5); MEAN PLATELET VOLUME 12.3 FL (7.4-10.4); MONOCYTES # (AUTO) 0.8 X10'3 (0-0.9); MONOCYTES % (AUTO) 4.1 % (2-12); NEUTROPHILS # (AUTO) 18.5 X10'3 (1.8-7.7); NEUTROPHILS % (AUTO) 91.6 % (42-75); PLATELET COUNT 71 X10'3 (140-440); RED BLOOD COUNT 3.26 X10'6 (4.20-5.60); RED CELL DISTRIBUTION WIDTH 14.9 % (11.5-14.5); WHITE BLOOD COUNT 20.1 X10'3 (4.5-11.0)
[2017-10-14 03:08] LABS: ALANINE AMINOTRANSFERASE 34 U/L (12-78); ALBUMIN 1.7 G/DL (3.4-5.0); ALBUMIN/GLOBULIN RATIO 0.5 (1.1-1.5); ALKALINE PHOSPHATASE 125 IU/L (46-116); ANION GAP 14 (8-16); ASPARTATE AMINO TRANSFERASE 15 U/L (10-37); BILIRUBIN,TOTAL 0.4 MG/DL (0.1-1.0); BLOOD UREA NITROGEN 100 MG/DL (7-18); BUN/CREATININE RATIO 52.4 (6.6-38.0); CALCIUM 7.8 MG/DL (8.5-10.1); CHLORIDE 118 MMOL/L (99-107); CREATININE 1.91 MG/DL (0.40-0.90); GLUCOSE 147 MG/DL (70-104); MAGNESIUM 2.7 MG/DL (1.5-2.4); PHOSPHORUS 2.9 MG/DL (2.3-4.5); POTASSIUM 3.6 MMOL/L (3.5-5.1); SODIUM 154 MMOL/L (135-145); TOTAL CARBON DIOXIDE 22.2 MMOL/L (24-32); TOTAL PROTEIN 4.9 G/DL (6.4-8.2); eGFR 25 ML/MIN
[2017-10-14 03:55] LABS: ABG BASE EXCESS -5.2 mmol/L (-2.0-3.0); ABG HCO3 17.5 mmol/L (22.0-26.0); ABG OXYGEN SATURATION 96.1 % (95-98); ABG PCO2 (T) 25.5 mmHg (32.0-45.0); ABG PH (T) 7.454 (7.350-7.450); ABG PO2 (T) 91.1 mmHg (83-108); ALLEN'S TEST Positive; FCOHb 0.3 % (0.5-1.5); FMetHb 0.3 % (0.3-1.12); FO2Hb 95.5 % (94-100); MINUTE VOLUME 9 L/min; PATIENT TEMPERATURE 37.4; PEEP 5 cm H2O; RESPIRATORY RATE 12 b/min; RESPIRATORY RATE (OBSERVED) 18 b/min; TIDAL VOLUME 500 mL
[2017-10-14 04:09] LABS: PLATELET ESTIMATE DECREASED; TOTAL CELLS COUNTED 100
[2017-10-14 04:10] LABS: LARGE PLATELETS FEW; POLYCHROMASIA FEW
[2017-10-14] MEDS: ipratropium/albuterol 3ml nebule IH SCH ×4 (07:29→18:23)
[2017-10-14] MEDS: docusate sodium 100mg/10ml UD cup NG SCH ×2 (08:00→20:00)
[2017-10-14] MEDS: levoTHYROXINE sod inj. 100mcg/5 ml vial IV SCH (08:26)
[2017-10-14] MEDS: LIDOcaine 5% patch TP SCH (08:26)
[2017-10-14] MEDS: pregabalin 25mg capsule PO SCH ×2 (08:28→20:55)
[2017-10-14] MEDS: lactobacillus rhamnosus 10,000 MMU CELLS/CAPSULE PO SCH ×2 (08:28→20:55)
[2017-10-14] MEDS: pregabalin 75mg capsule PO SCH ×2 (08:28→20:55)
[2017-10-14] MEDS: ferrous sulfate 325mg tablet PO SCH (08:29)
[2017-10-14] MEDS: loratadine 10mg tablet PO SCH (08:29)
[2017-10-14] MEDS: silver sulfadiazine cream 400gm jar TP SCH (08:30)
[2017-10-14] MEDS: HYDROcodone/acetaminophen 5mg/325mg tablet PO PRN (20:57)
[2017-10-14] MEDS: insulin glargine (Lantus) pen - multi-dose SQ SCH (21:13)
[2017-10-15] VITALS (21 sets, daily range): BP systolic 94–151; BP diastolic 50–96
[2017-10-15] MEDS: meropenem inj 500 MG in normal saline 100ml IV soln 100 ML IV SCH ×3 (00:19→16:18)
[2017-10-15] MEDS: hydrocortisone sod succ/PF 100mg/2ml inj. IV SCH ×4 (02:35→21:21)
[2017-10-15] MEDS: diltiazem 30mg tablet PO SCH ×4 (02:35→21:22)
[2017-10-15] MEDS: polyvinyl alcohol ophthalmic drops 15ml bottle EACHEYE SCH ×4 (02:37→21:20)
[2017-10-15] MEDS: insulin regular, human vial - multi-dose SQ SCH ×3 (02:53→21:33)
[2017-10-15 04:51] LABS: ABG BASE EXCESS -6.4 mmol/L (-2.0-3.0); ABG HCO3 16.5 mmol/L (22.0-26.0); ABG OXYGEN SATURATION 96.2 % (95-98); ABG PCO2 (T) 25.3 mmHg (32.0-45.0); ABG PH (T) 7.434 (7.350-7.450); ABG PO2 (T) 94.4 mmHg (83-108); ALLEN'S TEST Positive; FCOHb 0.3 % (0.5-1.5); FO2Hb 95.9 % (94-100); MINUTE VOLUME 8 L/min; PATIENT TEMPERATURE 37.3; PEEP 5 cm H2O; RESPIRATORY RATE 12 b/min; RESPIRATORY RATE (OBSERVED) 5 b/min; TIDAL VOLUME 500 mL; TOTAL HEMOGLOBIN 10.2 G/dl (12.0-16.0)
[2017-10-15 05:12] LABS: BASOPHILS % (AUTO) 0 % (0-1); EOSINOPHILS # (AUTO) 0.3 X10'3 (0-0.9); EOSINOPHILS % (AUTO) 1.2 % (0-6); HEMATOCRIT 28.1 % (35.0-45.0); HEMOGLOBIN 9.4 g/dl (12.0-16.0); LYMPHOCYTES # (AUTO) 0.7 X10'3 (1.1-4.8); LYMPHOCYTES % (AUTO) 3.1 % (21-51); MEAN CORPUSCULAR HEMOGLOBIN 29.1 PG (27.0-31.0); MEAN CORPUSCULAR HGB CONC 33.4 % (33.0-36.5); MEAN CORPUSCULAR VOLUME 86.9 FL (78-98); MEAN PLATELET VOLUME 13.2 FL (7.4-10.4); MONOCYTES # (AUTO) 0.8 X10'3 (0-0.9); MONOCYTES % (AUTO) 3.4 % (2-12); NEUTROPHILS # (AUTO) 21.6 X10'3 (1.8-7.7); NEUTROPHILS % (AUTO) 92.3 % (42-75); PLATELET COUNT 97 X10'3 (140-440); RED BLOOD COUNT 3.23 X10'6 (4.20-5.60); RED CELL DISTRIBUTION WIDTH 14.8 % (11.5-14.5); WHITE BLOOD COUNT 23.4 X10'3 (4.5-11.0)
[2017-10-15 05:44] LABS: ALANINE AMINOTRANSFERASE 174 U/L (12-78); ALBUMIN 1.7 G/DL (3.4-5.0); ALBUMIN/GLOBULIN RATIO 0.5 (1.1-1.5); ALKALINE PHOSPHATASE 162 IU/L (46-116); ANION GAP 15 (8-16); ASPARTATE AMINO TRANSFERASE 171 U/L (10-37); BILIRUBIN,TOTAL 0.7 MG/DL (0.1-1.0); BLOOD UREA NITROGEN 113 MG/DL (7-18); BUN/CREATININE RATIO 59.8 (6.6-38.0); CALCIUM 7.8 MG/DL (8.5-10.1); CHLORIDE 118 MMOL/L (99-107); CREATININE 1.89 MG/DL (0.40-0.90); GLUCOSE 105 MG/DL (70-104); MAGNESIUM 2.5 MG/DL (1.5-2.4); POTASSIUM 3.4 MMOL/L (3.5-5.1); PREALBUMIN 18.4 MG/DL (19-36); SODIUM 153 MMOL/L (135-145); TOTAL CARBON DIOXIDE 20.4 MMOL/L (24-32); TOTAL PROTEIN 4.9 G/DL (6.4-8.2); eGFR 26 ML/MIN
[2017-10-15 06:16] LABS: LARGE PLATELETS FEW; PLATELET ESTIMATE DECREASED; POLYCHROMASIA FEW; TOTAL CELLS COUNTED 100
[2017-10-15] MEDS ORDERED: potassium Cl oral solution 20 MEQ/15 ML PO PRN ×2 (06:57)
[2017-10-15] MEDS: ipratropium/albuterol 3ml nebule IH SCH ×4 (07:15→18:40)
[2017-10-15] MEDS: docusate sodium 100mg/10ml UD cup NG SCH ×2 (08:00→20:00)
[2017-10-15] MEDS: LIDOcaine 5% patch TP SCH (08:37)
[2017-10-15] MEDS: levoTHYROXINE sod inj. 100mcg/5 ml vial IV SCH (08:37)
[2017-10-15] MEDS: lactobacillus rhamnosus 10,000 MMU CELLS/CAPSULE PO SCH ×2 (08:38→21:22)
[2017-10-15] MEDS: pregabalin 75mg capsule PO SCH ×2 (08:38→21:22)
[2017-10-15] MEDS: pregabalin 25mg capsule PO SCH ×2 (08:39→21:23)
[2017-10-15] MEDS: loratadine 10mg tablet PO SCH (08:40)
[2017-10-15] MEDS: ferrous sulfate 325mg tablet PO SCH (08:42)
[2017-10-15] MEDS: silver sulfadiazine cream 400gm jar TP SCH (08:43)
[2017-10-15] MEDS: HYDROcodone/acetaminophen 5mg/325mg tablet PO PRN ×2 (11:03→21:23)
[2017-10-15] MEDS: apixaban 5mg tablet PO SCH ×2 (16:18→21:26)
[2017-10-15] MEDS: insulin glargine (Lantus) pen - multi-dose SQ SCH (21:31)
[2017-10-16] VITALS (24 sets, daily range): BP systolic 75–139; BP diastolic 54–87
[2017-10-16] MEDS: NORepinephrine 8mg/ 250ml NS 250 ML IV SCH
[2017-10-16] MEDS: diltiazem 30mg tablet PO SCH ×4 (02:45→20:56)
[2017-10-16] MEDS: polyvinyl alcohol ophthalmic drops 15ml bottle EACHEYE SCH ×4 (02:46→21:24)
[2017-10-16] MEDS: hydrocortisone sod succ/PF 100mg/2ml inj. IV SCH ×2 (02:46→08:08)
[2017-10-16] MEDS: insulin regular, human vial - multi-dose SQ SCH ×4 (02:49→21:35)
[2017-10-16 04:20] LABS: ABG BASE EXCESS -5.8 mmol/L (-2.0-3.0); ABG HCO3 16.6 mmol/L (22.0-26.0); ABG OXYGEN SATURATION 95.3 % (95-98); ABG PCO2 (T) 24.9 mmHg (32.0-45.0); ABG PH (T) 7.447 (7.350-7.450); ABG PO2 (T) 92.9 mmHg (83-108); ALLEN'S TEST Positive; FCOHb 0.3 % (0.5-1.5); FMetHb 0.3 % (0.3-1.12); FO2Hb 94.7 % (94-100); MINUTE VOLUME 9 L/min; PATIENT TEMPERATURE 38.4; PEEP 5 cm H2O; RESPIRATORY RATE 12 b/min; RESPIRATORY RATE (OBSERVED) 20 b/min; TIDAL VOLUME 500 mL; TOTAL HEMOGLOBIN 10.2 G/dl (12.0-16.0)
[2017-10-16 04:32] LABS: BASOPHILS % (AUTO) 0 % (0-1); EOSINOPHILS # (AUTO) 0.5 X10'3 (0-0.9); EOSINOPHILS % (AUTO) 1.5 % (0-6); HEMATOCRIT 29.9 % (35.0-45.0); HEMOGLOBIN 10.1 g/dl (12.0-16.0); LYMPHOCYTES # (AUTO) 0.9 X10'3 (1.1-4.8); LYMPHOCYTES % (AUTO) 2.6 % (21-51); MEAN CORPUSCULAR HEMOGLOBIN 29.1 PG (27.0-31.0); MEAN CORPUSCULAR HGB CONC 33.7 % (33.0-36.5); MEAN CORPUSCULAR VOLUME 86.3 FL (78-98); MEAN PLATELET VOLUME 12.9 FL (7.4-10.4); MONOCYTES # (AUTO) 0.7 X10'3 (0-0.9); MONOCYTES % (AUTO) 1.9 % (2-12); NEUTROPHILS # (AUTO) 33.7 X10'3 (1.8-7.7); PLATELET COUNT 148 X10'3 (140-440); RED BLOOD COUNT 3.47 X10'6 (4.20-5.60); RED CELL DISTRIBUTION WIDTH 14.6 % (11.5-14.5)
[2017-10-16 04:36] LABS: WHITE BLOOD COUNT 35.8 X10'3 (4.5-11.0)
[2017-10-16 04:58] LABS: ALANINE AMINOTRANSFERASE 225 U/L (12-78); ALBUMIN/GLOBULIN RATIO 0.6 (1.1-1.5); ALKALINE PHOSPHATASE 177 IU/L (46-116); ANION GAP 17 (8-16); ASPARTATE AMINO TRANSFERASE 136 U/L (10-37); BILIRUBIN,TOTAL 0.7 MG/DL (0.1-1.0); BLOOD UREA NITROGEN 122 MG/DL (7-18); BUN/CREATININE RATIO 67.4 (6.6-38.0); CALCIUM 7.6 MG/DL (8.5-10.1); CHLORIDE 116 MMOL/L (99-107); CREATININE 1.81 MG/DL (0.40-0.90); GLUCOSE 116 MG/DL (70-104); MAGNESIUM 2.4 MG/DL (1.5-2.4); PHOSPHORUS 4.5 MG/DL (2.3-4.5); POTASSIUM 3.8 MMOL/L (3.5-5.1); SODIUM 152 MMOL/L (135-145); TOTAL CARBON DIOXIDE 19.5 MMOL/L (24-32); TOTAL PROTEIN 5.4 G/DL (6.4-8.2); eGFR 27 ML/MIN
[2017-10-16 04:59] LABS: PLATELET ESTIMATE NORMAL; TOTAL CELLS COUNTED 100
[2017-10-16 05:00] LABS: LARGE PLATELETS FEW; POLYCHROMASIA FEW; TOXIC GRANULATION 1+
[2017-10-16] MEDS: ipratropium/albuterol 3ml nebule IH SCH ×4 (07:56→18:45)
[2017-10-16] MEDS: docusate sodium 100mg/10ml UD cup NG SCH ×2 (08:00→20:00)
[2017-10-16] MEDS: HYDROcodone/acetaminophen 5mg/325mg tablet PO PRN ×2 (08:07→21:02)
[2017-10-16] MEDS: meropenem inj 500 MG in normal saline 100ml IV soln 100 ML IV SCH ×4 (08:07→16:13)
[2017-10-16] MEDS: lactobacillus rhamnosus 10,000 MMU CELLS/CAPSULE PO SCH ×2 (08:08→20:56)
[2017-10-16] MEDS: pregabalin 25mg capsule PO SCH ×2 (08:09→20:57)
[2017-10-16] MEDS: pregabalin 75mg capsule PO SCH ×2 (08:09→20:56)
[2017-10-16] MEDS: ferrous sulfate 325mg tablet PO SCH (08:09)
[2017-10-16] MEDS: loratadine 10mg tablet PO SCH (08:23)
[2017-10-16] MEDS: LIDOcaine 5% patch TP SCH (08:24)
[2017-10-16] MEDS: levoTHYROXINE 100mcg tablet PO SCH (09:25)
[2017-10-16] MEDS: amiodarone 200mg tablet PO SCH ×2 (09:26→21:01)
[2017-10-16] MEDS: apixaban 5mg tablet PO SCH ×2 (11:54→20:58)
[2017-10-16] MEDS: silver sulfadiazine cream 400gm jar TP SCH (11:55)
[2017-10-16 12:43] LABS: CLARITY,URINE Clear (Clear); COLOR,URINE Yellow (Yellow); GLUCOSE, URINE Negative (Neg); KETONES,URINE Negative (Neg); LEUKOCYTE ESTERASE ,URINE Trace (Neg); NITRITES, URINE Negative (Neg); OCCULT BLOOD,URINE Trace (Neg); PROTEIN,URINE Negative (Neg); UROBILINOGEN,URINE 0.2 E.U/dL (0.2-1.0)
[2017-10-16 12:45] LABS: UA COLLECTION TYPE NON-SPECIFIED
[2017-10-16 13:00] LABS: BACTERIA,URINE FEW /HPF (Neg); RBC,URINE 0-2 /HPF (0-2); WBC,URINE 0-4 /HPF (0-4)
[2017-10-16 13:01] LABS: RENAL CELLS, URINE FEW /HPF; SQUAMOUS EPITHELIAL CELL,UR FEW /LPF (FEW); TRANSITIONAL EPI CELLS,URINE FEW /HPF
[2017-10-16 13:22] LABS: WBC CLUMPS,URINE FEW /HPF (NEGATIVE)
[2017-10-16] MEDS: famotidine/PF 10 mg/ml inj IV SCH (21:02)
[2017-10-16] MEDS: insulin glargine (Lantus) pen - multi-dose SQ SCH (21:33)
[2017-10-17] VITALS (23 sets, daily range): BP systolic 86–135; BP diastolic 45–69
[2017-10-17] MEDS: meropenem inj 500 MG in normal saline 100ml IV soln 100 ML IV SCH ×3 (00:09→15:17)
[2017-10-17] MEDS: polyvinyl alcohol ophthalmic drops 15ml bottle EACHEYE SCH ×4 (02:32→21:28)
[2017-10-17] MEDS: dextrose 50%-water 50ml dispensing syringe IV PRN (02:32)
[2017-10-17] MEDS: diltiazem 30mg tablet PO SCH ×4 (02:39→20:00)
[2017-10-17] MEDS: HYDROcodone/acetaminophen 5mg/325mg tablet PO PRN ×2 (02:41→07:39)
[2017-10-17 03:20] LABS: ABG BASE EXCESS -7.1 mmol/L (-2.0-3.0); ABG HCO3 17.7 mmol/L (22.0-26.0); ABG OXYGEN SATURATION 94.5 % (95-98); ABG PCO2 (T) 33.1 mmHg (32.0-45.0); ABG PH (T) 7.347 (7.350-7.450); ABG PO2 (T) 80.6 mmHg (83-108); ALLEN'S TEST Positive; FCOHb 0.3 % (0.5-1.5); FMetHb 0.1 % (0.3-1.12); FO2Hb 94.1 % (94-100); MINUTE VOLUME 8 L/min; PEEP 5 cm H2O; RESPIRATORY RATE 0 b/min; RESPIRATORY RATE (OBSERVED) 26 b/min; TIDAL VOLUME 321 mL; TOTAL HEMOGLOBIN 10.2 G/dl (12.0-16.0)
[2017-10-17 06:53] LABS: BASOPHILS % (AUTO) 0 % (0-1); EOSINOPHILS # (AUTO) 0.1 X10'3 (0-0.9); EOSINOPHILS % (AUTO) 0.8 % (0-6); HEMATOCRIT 25.6 % (35.0-45.0); HEMOGLOBIN 8.6 g/dl (12.0-16.0); LYMPHOCYTES # (AUTO) 0.8 X10'3 (1.1-4.8); LYMPHOCYTES % (AUTO) 5.4 % (21-51); MEAN CORPUSCULAR HEMOGLOBIN 29.2 PG (27.0-31.0); MEAN CORPUSCULAR HGB CONC 33.5 % (33.0-36.5); MEAN CORPUSCULAR VOLUME 87.3 FL (78-98); MEAN PLATELET VOLUME 12.8 FL (7.4-10.4); MONOCYTES # (AUTO) 0.2 X10'3 (0-0.9); MONOCYTES % (AUTO) 1.4 % (2-12); NEUTROPHILS # (AUTO) 14.1 X10'3 (1.8-7.7); NEUTROPHILS % (AUTO) 92.4 % (42-75); PLATELET COUNT 109 X10'3 (140-440); RED BLOOD COUNT 2.94 X10'6 (4.20-5.60); RED CELL DISTRIBUTION WIDTH 14.6 % (11.5-14.5); WHITE BLOOD COUNT 15.3 X10'3 (4.5-11.0)
[2017-10-17] MEDS: ipratropium/albuterol 3ml nebule IH SCH ×4 (07:00→19:31)
[2017-10-17 07:16] LABS: ALANINE AMINOTRANSFERASE 150 U/L (12-78); ALBUMIN 1.6 G/DL (3.4-5.0); ALBUMIN/GLOBULIN RATIO 0.5 (1.1-1.5); ALKALINE PHOSPHATASE 147 IU/L (46-116); ANION GAP 17 (8-16); ASPARTATE AMINO TRANSFERASE 44 U/L (10-37); BILIRUBIN,TOTAL 0.5 MG/DL (0.1-1.0); BLOOD UREA NITROGEN 120 MG/DL (7-18); BUN/CREATININE RATIO 77.9 (6.6-38.0); CALCIUM 7.1 MG/DL (8.5-10.1); CHLORIDE 117 MMOL/L (99-107); CREATININE 1.54 MG/DL (0.40-0.90); GLUCOSE 111 MG/DL (70-104); MAGNESIUM 2.3 MG/DL (1.5-2.4); POTASSIUM 3.7 MMOL/L (3.5-5.1); SODIUM 152 MMOL/L (135-145); TOTAL CARBON DIOXIDE 18.3 MMOL/L (24-32); TOTAL PROTEIN 4.7 G/DL (6.4-8.2); eGFR 33 ML/MIN
[2017-10-17] MEDS: levoTHYROXINE 100mcg tablet PO SCH (07:41)
[2017-10-17] MEDS: famotidine/PF 10 mg/ml inj IV SCH ×2 (07:42→21:28)
[2017-10-17] MEDS: hydrocortisone sod succ/PF 100mg/2ml inj. IV SCH (07:42)
[2017-10-17] MEDS: loratadine 10mg tablet PO SCH (07:43)
[2017-10-17] MEDS: apixaban 5mg tablet PO SCH ×2 (07:43→21:29)
[2017-10-17] MEDS: amiodarone 200mg tablet PO SCH ×2 (07:43→21:29)
[2017-10-17] MEDS: ferrous sulfate 325mg tablet PO SCH (07:43)
[2017-10-17] MEDS: pregabalin 75mg capsule PO SCH ×2 (07:43→21:29)
[2017-10-17] MEDS: lactobacillus rhamnosus 10,000 MMU CELLS/CAPSULE PO SCH ×2 (07:43→21:31)
[2017-10-17] MEDS: silver sulfadiazine cream 400gm jar TP SCH (07:44)
[2017-10-17] MEDS: LIDOcaine 5% patch TP SCH (07:44)
[2017-10-17] MEDS: pregabalin 25mg capsule PO SCH ×2 (07:44→21:29)
[2017-10-17] MEDS: insulin regular, human vial - multi-dose SQ SCH ×3 (07:53→21:56)
[2017-10-17] MEDS: docusate sodium 100mg/10ml UD cup NG SCH ×2 (08:00→20:00)
[2017-10-17] MEDS ORDERED: FLU VACC QS2017-18 36MOS UP/PF 60 MCG/0.5 ML SYRINGE IMVAC ONE (10:00)
[2017-10-17 16:26] LABS: BASOPHILS % (AUTO) 0 % (0-1); EOSINOPHILS # (AUTO) 0.2 X10'3 (0-0.9); EOSINOPHILS % (AUTO) 1.4 % (0-6); HEMATOCRIT 25.5 % (35.0-45.0); HEMOGLOBIN 8.4 g/dl (12.0-16.0); LYMPHOCYTES # (AUTO) 0.5 X10'3 (1.1-4.8); LYMPHOCYTES % (AUTO) 3.4 % (21-51); MEAN CORPUSCULAR HEMOGLOBIN 28.7 PG (27.0-31.0); MEAN CORPUSCULAR HGB CONC 33.1 % (33.0-36.5); MEAN CORPUSCULAR VOLUME 86.8 FL (78-98); MEAN PLATELET VOLUME 12.6 FL (7.4-10.4); MONOCYTES # (AUTO) 0.3 X10'3 (0-0.9); MONOCYTES % (AUTO) 1.6 % (2-12); NEUTROPHILS # (AUTO) 14.8 X10'3 (1.8-7.7); NEUTROPHILS % (AUTO) 93.6 % (42-75); PLATELET COUNT 113 X10'3 (140-440); RED BLOOD COUNT 2.94 X10'6 (4.20-5.60); RED CELL DISTRIBUTION WIDTH 14.8 % (11.5-14.5); WHITE BLOOD COUNT 15.8 X10'3 (4.5-11.0)
[2017-10-17] MEDS ORDERED: amiodarone/D5 450MG/250ML BAG 250 ML IV ONE (20:37)
[2017-10-17] MEDS: insulin glargine (Lantus) pen - multi-dose SQ SCH (21:55)
[2017-10-18] VITALS (24 sets, daily range): BP systolic 83–137; BP diastolic 52–79
[2017-10-18] MEDS: meropenem inj 500 MG in normal saline 100ml IV soln 100 ML IV SCH ×3 (00:37→15:17)
[2017-10-18] MEDS: polyvinyl alcohol ophthalmic drops 15ml bottle EACHEYE SCH ×4 (02:32→21:12)
[2017-10-18] MEDS: dextrose 50%-water 50ml dispensing syringe IV PRN (02:34)
[2017-10-18 03:20] LABS: BASOPHILS % (AUTO) 0 % (0-1); EOSINOPHILS # (AUTO) 0.2 X10'3 (0-0.9); EOSINOPHILS % (AUTO) 1.1 % (0-6); HEMATOCRIT 25.7 % (35.0-45.0); HEMOGLOBIN 8.5 g/dl (12.0-16.0); LYMPHOCYTES # (AUTO) 0.7 X10'3 (1.1-4.8); MEAN CORPUSCULAR HEMOGLOBIN 28.9 PG (27.0-31.0); MEAN CORPUSCULAR HGB CONC 33.2 % (33.0-36.5); MEAN CORPUSCULAR VOLUME 87.2 FL (78-98); MEAN PLATELET VOLUME 13.3 FL (7.4-10.4); MONOCYTES # (AUTO) 0.7 X10'3 (0-0.9); NEUTROPHILS # (AUTO) 15.4 X10'3 (1.8-7.7); NEUTROPHILS % (AUTO) 90.9 % (42-75); PLATELET COUNT 114 X10'3 (140-440); RED BLOOD COUNT 2.95 X10'6 (4.20-5.60)
[2017-10-18] MEDS: diltiazem 30mg tablet PO SCH ×4 (03:27→20:00)
[2017-10-18 03:35] LABS: ALANINE AMINOTRANSFERASE 115 U/L (12-78); ALBUMIN 1.6 G/DL (3.4-5.0); ALBUMIN/GLOBULIN RATIO 0.5 (1.1-1.5); ALKALINE PHOSPHATASE 155 IU/L (46-116); ANION GAP 16 (8-16); ASPARTATE AMINO TRANSFERASE 35 U/L (10-37); BILIRUBIN,TOTAL 0.4 MG/DL (0.1-1.0); BLOOD UREA NITROGEN 105 MG/DL (7-18); BUN/CREATININE RATIO 75.5 (6.6-38.0); CALCIUM 7.3 MG/DL (8.5-10.1); CHLORIDE 116 MMOL/L (99-107); CREATININE 1.39 MG/DL (0.40-0.90); GLUCOSE 63 MG/DL (70-104); MAGNESIUM 2.1 MG/DL (1.5-2.4); PHOSPHORUS 4.2 MG/DL (2.3-4.5); POTASSIUM 3.9 MMOL/L (3.5-5.1); PREALBUMIN 24.4 MG/DL (19-36); SODIUM 152 MMOL/L (135-145); TOTAL CARBON DIOXIDE 20.3 MMOL/L (24-32); eGFR 37 ML/MIN
[2017-10-18 03:50] LABS: ABG BASE EXCESS -7.6 mmol/L (-2.0-3.0); ABG HCO3 15.9 mmol/L (22.0-26.0); ABG PCO2 (T) 26.8 mmHg (32.0-45.0); ABG PH (T) 7.394 (7.350-7.450); ABG PO2 (T) 81.5 mmHg (83-108); ALLEN'S TEST Positive; FCOHb 0.3 % (0.5-1.5); FO2Hb 93.7 % (94-100); MINUTE VOLUME 9 L/min; PATIENT TEMPERATURE 37.8; PEEP 5 cm H2O; RESPIRATORY RATE 12 b/min; RESPIRATORY RATE (OBSERVED) 18 b/min; TIDAL VOLUME 500 mL; TOTAL HEMOGLOBIN 9.7 G/dl (12.0-16.0)
[2017-10-18 04:09] LABS: GIANT PLATELET MODERATE; LARGE PLATELETS FEW; PLATELET ESTIMATE DECREASED
[2017-10-18] MEDS: ipratropium/albuterol 3ml nebule IH SCH ×3 (07:40→21:21)
[2017-10-18] MEDS: docusate sodium 100mg/10ml UD cup NG SCH ×2 (08:00→20:00)
[2017-10-18] MEDS: famotidine/PF 10 mg/ml inj IV SCH ×2 (08:57→21:12)
[2017-10-18] MEDS: hydrocortisone sod succ/PF 100mg/2ml inj. IV SCH (08:57)
[2017-10-18] MEDS: loratadine 10mg tablet PO SCH (08:58)
[2017-10-18] MEDS: LIDOcaine 5% patch TP SCH (08:58)
[2017-10-18] MEDS: ferrous sulfate 325mg tablet PO SCH (08:58)
[2017-10-18] MEDS: pregabalin 25mg capsule PO SCH ×2 (08:58→21:12)
[2017-10-18] MEDS: pregabalin 75mg capsule PO SCH ×2 (08:58→21:13)
[2017-10-18] MEDS: apixaban 5mg tablet PO SCH ×2 (08:59→21:13)
[2017-10-18] MEDS: lactobacillus rhamnosus 10,000 MMU CELLS/CAPSULE PO SCH ×2 (08:59→21:13)
[2017-10-18] MEDS: amiodarone 200mg tablet PO SCH ×2 (08:59→21:13)
[2017-10-18] MEDS: insulin regular, human vial - multi-dose SQ SCH ×3 (09:03→21:39)
[2017-10-18] MEDS: levoTHYROXINE 100mcg tablet PO SCH (09:15)
[2017-10-18] MEDS ORDERED: ipratropium/albuterol 3ml nebule NEB PRN (10:50)
[2017-10-18] MEDS: HYDROcodone/acetaminophen 5mg/325mg tablet PO PRN ×2 (10:51→14:46)
[2017-10-18] MEDS: silver sulfadiazine cream 400gm jar TP SCH (14:36)
[2017-10-18] MEDS: insulin glargine (Lantus) pen - multi-dose SQ SCH (21:40)
[2017-10-19] VITALS (23 sets, daily range): BP systolic 93–127; BP diastolic 48–62
[2017-10-19] MEDS: meropenem inj 500 MG in normal saline 100ml IV soln 100 ML IV SCH ×4 (00:48→23:56)
[2017-10-19] MEDS: ipratropium/albuterol 3ml nebule IH SCH ×4 (03:05→19:57)
[2017-10-19] MEDS: polyvinyl alcohol ophthalmic drops 15ml bottle EACHEYE SCH ×4 (03:08→21:25)
[2017-10-19 03:17] LABS: BASOPHILS % (AUTO) 0.1 % (0-1); EOSINOPHILS # (AUTO) 0.2 X10'3 (0-0.9); EOSINOPHILS % (AUTO) 1.2 % (0-6); HEMATOCRIT 24.5 % (35.0-45.0); HEMOGLOBIN 8.1 g/dl (12.0-16.0); LYMPHOCYTES # (AUTO) 0.6 X10'3 (1.1-4.8); LYMPHOCYTES % (AUTO) 4.2 % (21-51); MEAN CORPUSCULAR HGB CONC 33.1 % (33.0-36.5); MEAN CORPUSCULAR VOLUME 87.9 FL (78-98); MEAN PLATELET VOLUME 12.6 FL (7.4-10.4); MONOCYTES # (AUTO) 0.5 X10'3 (0-0.9); MONOCYTES % (AUTO) 3.9 % (2-12); NEUTROPHILS # (AUTO) 12.3 X10'3 (1.8-7.7); NEUTROPHILS % (AUTO) 90.6 % (42-75); PLATELET COUNT 100 X10'3 (140-440); RED BLOOD COUNT 2.79 X10'6 (4.20-5.60); RED CELL DISTRIBUTION WIDTH 14.7 % (11.5-14.5); WHITE BLOOD COUNT 13.5 X10'3 (4.5-11.0)
[2017-10-19] MEDS: insulin regular, human vial - multi-dose SQ SCH ×4 (03:17→21:31)
[2017-10-19 03:30] LABS: ALANINE AMINOTRANSFERASE 84 U/L (12-78); ALBUMIN 1.5 G/DL (3.4-5.0); ALBUMIN/GLOBULIN RATIO 0.4 (1.1-1.5); ALKALINE PHOSPHATASE 149 IU/L (46-116); ANION GAP 12 (8-16); ASPARTATE AMINO TRANSFERASE 25 U/L (10-37); BILIRUBIN,TOTAL 0.3 MG/DL (0.1-1.0); BLOOD UREA NITROGEN 98 MG/DL (7-18); BUN/CREATININE RATIO 74.8 (6.6-38.0); CALCIUM 7.1 MG/DL (8.5-10.1); CHLORIDE 119 MMOL/L (99-107); CREATININE 1.31 MG/DL (0.40-0.90); GLUCOSE 138 MG/DL (70-104); MAGNESIUM 2.1 MG/DL (1.5-2.4); PHOSPHORUS 3.8 MG/DL (2.3-4.5); POTASSIUM 3.9 MMOL/L (3.5-5.1); SODIUM 152 MMOL/L (135-145); TOTAL CARBON DIOXIDE 20.6 MMOL/L (24-32); TOTAL PROTEIN 4.9 G/DL (6.4-8.2); eGFR 39 ML/MIN
[2017-10-19 03:43] LABS: LARGE PLATELETS FEW; PLATELET ESTIMATE DECREASED
[2017-10-19] MEDS: diltiazem 30mg tablet PO SCH ×4 (03:47→21:26)
[2017-10-19 04:51] LABS: ABG BASE EXCESS -6.5 mmol/L (-2.0-3.0); ABG HCO3 16.4 mmol/L (22.0-26.0); ABG OXYGEN SATURATION 94.7 % (95-98); ABG PCO2 (T) 24.7 mmHg (32.0-45.0); ABG PH (T) 7.442 (7.350-7.450); ABG PO2 (T) 79.2 mmHg (83-108); ALLEN'S TEST Positive; FCOHb 0.3 % (0.5-1.5); FMetHb 0.1 % (0.3-1.12); FO2Hb 94.3 % (94-100); MINUTE VOLUME 9 L/min; PATIENT TEMPERATURE 37.3; PEEP 5 cm H2O; RESPIRATORY RATE 12 b/min; RESPIRATORY RATE (OBSERVED) 20 b/min; TIDAL VOLUME 500 mL; TOTAL HEMOGLOBIN 8.7 G/dl (12.0-16.0)
[2017-10-19] MEDS: hydrocortisone sod succ/PF 100mg/2ml inj. IV SCH (08:11)
[2017-10-19] MEDS: famotidine/PF 10 mg/ml inj IV SCH ×2 (08:11→21:25)
[2017-10-19] MEDS: lactobacillus rhamnosus 10,000 MMU CELLS/CAPSULE PO SCH ×2 (08:12→21:25)
[2017-10-19] MEDS: loratadine 10mg tablet PO SCH (08:12)
[2017-10-19] MEDS: pregabalin 25mg capsule PO SCH ×2 (08:12→21:25)
[2017-10-19] MEDS: ferrous sulfate 325mg tablet PO SCH (08:12)
[2017-10-19] MEDS: pregabalin 75mg capsule PO SCH ×2 (08:12→21:26)
[2017-10-19] MEDS: LIDOcaine 5% patch TP SCH (08:13)
[2017-10-19] MEDS: levoTHYROXINE 100mcg tablet PO SCH (08:13)
[2017-10-19] MEDS: amiodarone 200mg tablet PO SCH ×2 (08:13→21:26)
[2017-10-19] MEDS: docusate sodium 100mg/10ml UD cup NG SCH ×2 (08:13→21:25)
[2017-10-19] MEDS: silver sulfadiazine cream 400gm jar TP SCH (08:14)
[2017-10-19] MEDS: apixaban 5mg tablet PO SCH (08:26)
[2017-10-19] MEDS: dextrose 5%-water 1,000 ML IV SCH ×2 (11:00→21:25)
[2017-10-19] MEDS: insulin glargine (Lantus) pen - multi-dose SQ SCH (21:32)
[2017-10-19] MEDS: HYDROcodone/acetaminophen 5mg/325mg tablet PO PRN (23:43)
[2017-10-20] VITALS (23 sets, daily range): BP systolic 97–131; BP diastolic 51–69
[2017-10-20] MEDS: ipratropium/albuterol 3ml nebule IH SCH ×4 (02:57→21:15)
[2017-10-20 03:20] LABS: ABG HCO3 16.4 mmol/L (22.0-26.0); ABG OXYGEN SATURATION 96.2 % (95-98); ABG PCO2 (T) 26.2 mmHg (32.0-45.0); ABG PH (T) 7.418 (7.350-7.450); ABG PO2 (T) 99.9 mmHg (83-108); ALLEN'S TEST Positive; FCOHb 0.3 % (0.5-1.5); FO2Hb 95.9 % (94-100); MINUTE VOLUME 8 L/min; PATIENT TEMPERATURE 37.6; PEEP 5 cm H2O; RESPIRATORY RATE 12 b/min; RESPIRATORY RATE (OBSERVED) 18 b/min; TIDAL VOLUME 500 mL; TOTAL HEMOGLOBIN 7.7 G/dl (12.0-16.0)
[2017-10-20 03:23] LABS: ALANINE AMINOTRANSFERASE 64 U/L (12-78); ALBUMIN 1.5 G/DL (3.4-5.0); ALBUMIN/GLOBULIN RATIO 0.4 (1.1-1.5); ALKALINE PHOSPHATASE 145 IU/L (46-116); ANION GAP 11 (8-16); ASPARTATE AMINO TRANSFERASE 23 U/L (10-37); BILIRUBIN,TOTAL 0.4 MG/DL (0.1-1.0); BLOOD UREA NITROGEN 85 MG/DL (7-18); BUN/CREATININE RATIO 72.6 (6.6-38.0); CALCIUM 7.1 MG/DL (8.5-10.1); CHLORIDE 117 MMOL/L (99-107); CREATININE 1.17 MG/DL (0.40-0.90); GLUCOSE 111 MG/DL (70-104); MAGNESIUM 1.8 MG/DL (1.5-2.4); PHOSPHORUS 2.8 MG/DL (2.3-4.5); POTASSIUM 3.7 MMOL/L (3.5-5.1); SODIUM 148 MMOL/L (135-145); TOTAL CARBON DIOXIDE 20.4 MMOL/L (24-32); eGFR 45 ML/MIN
[2017-10-20] MEDS: polyvinyl alcohol ophthalmic drops 15ml bottle EACHEYE SCH ×4 (03:23→21:32)
[2017-10-20] MEDS: diltiazem 30mg tablet PO SCH ×4 (03:24→21:24)
[2017-10-20 04:04] LABS: BASOPHILS % (AUTO) 0 % (0-1); EOSINOPHILS # (AUTO) 0.2 X10'3 (0-0.9); EOSINOPHILS % (AUTO) 1.1 % (0-6); HEMATOCRIT 22.5 % (35.0-45.0); HEMOGLOBIN 7.6 g/dl (12.0-16.0); LYMPHOCYTES # (AUTO) 0.6 X10'3 (1.1-4.8); LYMPHOCYTES % (AUTO) 3.9 % (21-51); MEAN CORPUSCULAR HGB CONC 33.6 % (33.0-36.5); MEAN CORPUSCULAR VOLUME 86.3 FL (78-98); MONOCYTES # (AUTO) 0.7 X10'3 (0-0.9); NEUTROPHILS # (AUTO) 13.3 X10'3 (1.8-7.7); PLATELET COUNT 114 X10'3 (140-440); RED BLOOD COUNT 2.61 X10'6 (4.20-5.60); RED CELL DISTRIBUTION WIDTH 14.6 % (11.5-14.5); WHITE BLOOD COUNT 14.7 X10'3 (4.5-11.0)
[2017-10-20] MEDS ORDERED: furosemide 40mg/4ml inj IV ONE (07:55)
[2017-10-20] MEDS: meropenem inj 500 MG in normal saline 100ml IV soln 100 ML IV SCH ×2 (09:03→16:00)
[2017-10-20] MEDS: pregabalin 25mg capsule PO SCH ×2 (09:04→21:42)
[2017-10-20] MEDS: pregabalin 75mg capsule PO SCH ×2 (09:04→21:25)
[2017-10-20] MEDS: docusate sodium 100mg/10ml UD cup NG SCH ×2 (09:04→21:25)
[2017-10-20] MEDS: hydrocortisone sod succ/PF 100mg/2ml inj. IV SCH (09:04)
[2017-10-20] MEDS: loratadine 10mg tablet PO SCH (09:05)
[2017-10-20] MEDS: lactobacillus rhamnosus 10,000 MMU CELLS/CAPSULE PO SCH ×2 (09:05→21:24)
[2017-10-20] MEDS: ferrous sulfate 325mg tablet PO SCH (09:06)
[2017-10-20] MEDS: amiodarone 200mg tablet PO SCH ×2 (09:06→21:25)
[2017-10-20] MEDS: famotidine/PF 10 mg/ml inj IV SCH ×2 (09:07→21:34)
[2017-10-20] MEDS: dextrose 5%-water 1,000 ML IV SCH (09:07)
[2017-10-20] MEDS: LIDOcaine 5% patch TP SCH (09:08)
[2017-10-20] MEDS: silver sulfadiazine cream 400gm jar TP SCH (09:08)
[2017-10-20] MEDS: levoTHYROXINE 100mcg tablet PO SCH (09:10)
[2017-10-20] MEDS: insulin regular, human vial - multi-dose SQ SCH ×3 (09:13→21:39)
[2017-10-20] MEDS ORDERED: linezolid 600mg/300ml PREMIX 300 ML IV ONE (10:00)
[2017-10-20] MEDS: HYDROcodone/acetaminophen 5mg/325mg tablet PO PRN (14:57)
[2017-10-20 17:21] LABS: MAGNESIUM 1.7 MG/DL (1.5-2.4); POTASSIUM 3.7 MMOL/L (3.5-5.1)
[2017-10-20] MEDS: linezolid 600mg/300ml PREMIX 300 ML IV SCH (21:33)
[2017-10-20] MEDS: insulin glargine (Lantus) pen - multi-dose SQ SCH (21:45)
[2017-10-21] VITALS (23 sets, daily range): BP systolic 90–143; BP diastolic 47–74
[2017-10-21] MEDS: meropenem inj 500 MG in normal saline 100ml IV soln 100 ML IV SCH ×3 (00:38→17:29)
[2017-10-21] MEDS: ipratropium/albuterol 3ml nebule IH SCH (03:07)
[2017-10-21] MEDS: diltiazem 30mg tablet PO SCH ×4 (03:40→20:46)
[2017-10-21] MEDS: polyvinyl alcohol ophthalmic drops 15ml bottle EACHEYE SCH ×4 (03:49→20:45)
[2017-10-21] MEDS: insulin regular, human vial - multi-dose SQ SCH ×4 (03:55→20:59)
[2017-10-21 04:46] LABS: ABG HCO3 17.4 mmol/L (22.0-26.0); ABG OXYGEN SATURATION 94.4 % (95-98); ABG PCO2 (T) 27.1 mmHg (32.0-45.0); ABG PH (T) 7.427 (7.350-7.450); ABG PO2 (T) 80.2 mmHg (83-108); ALLEN'S TEST Positive; FCOHb 0.2 % (0.5-1.5); FMetHb 0.3 % (0.3-1.12); FO2Hb 93.9 % (94-100); PATIENT TEMPERATURE 37.4; PEEP 5 cm H2O; RESPIRATORY RATE 12 b/min; TIDAL VOLUME 500 mL; TOTAL HEMOGLOBIN 8.2 G/dl (12.0-16.0)
[2017-10-21 05:33] LABS: BASOPHILS % (AUTO) 0.2 % (0-1); EOSINOPHILS % (AUTO) 0.1 % (0-6); HEMOGLOBIN 7.7 g/dl (12.0-16.0); LYMPHOCYTES # (AUTO) 0.7 X10'3 (1.1-4.8); LYMPHOCYTES % (AUTO) 5.1 % (21-51); MEAN CORPUSCULAR HEMOGLOBIN 28.9 PG (27.0-31.0); MEAN CORPUSCULAR HGB CONC 33.2 % (33.0-36.5); MEAN CORPUSCULAR VOLUME 87.1 FL (78-98); MEAN PLATELET VOLUME 13.6 FL (7.4-10.4); MONOCYTES # (AUTO) 0.8 X10'3 (0-0.9); MONOCYTES % (AUTO) 5.4 % (2-12); NEUTROPHILS # (AUTO) 13.1 X10'3 (1.8-7.7); NEUTROPHILS % (AUTO) 89.2 % (42-75); PLATELET COUNT 127 X10'3 (140-440); RED BLOOD COUNT 2.64 X10'6 (4.20-5.60); RED CELL DISTRIBUTION WIDTH 14.6 % (11.5-14.5); WHITE BLOOD COUNT 14.6 X10'3 (4.5-11.0)
[2017-10-21 05:49] LABS: ALANINE AMINOTRANSFERASE 59 U/L (12-78); ALBUMIN 1.5 G/DL (3.4-5.0); ALBUMIN/GLOBULIN RATIO 0.4 (1.1-1.5); ALKALINE PHOSPHATASE 156 IU/L (46-116); ANION GAP 14 (8-16); ASPARTATE AMINO TRANSFERASE 26 U/L (10-37); BILIRUBIN,TOTAL 0.4 MG/DL (0.1-1.0); BLOOD UREA NITROGEN 79 MG/DL (7-18); BUN/CREATININE RATIO 69.9 (6.6-38.0); CHLORIDE 112 MMOL/L (99-107); CREATININE 1.13 MG/DL (0.40-0.90); GLUCOSE 114 MG/DL (70-104); MAGNESIUM 1.7 MG/DL (1.5-2.4); PHOSPHORUS 2.7 MG/DL (2.3-4.5); POTASSIUM 3.5 MMOL/L (3.5-5.1); SODIUM 146 MMOL/L (135-145); TOTAL CARBON DIOXIDE 19.7 MMOL/L (24-32); TOTAL PROTEIN 5.4 G/DL (6.4-8.2); eGFR 47 ML/MIN
[2017-10-21] MEDS: levoTHYROXINE 100mcg tablet PO SCH (07:00)
[2017-10-21 07:45] LABS: LARGE PLATELETS FEW; PLATELET ESTIMATE DECREASED
[2017-10-21] MEDS: LIDOcaine 5% patch TP SCH (08:59)
[2017-10-21] MEDS: linezolid 600mg/300ml PREMIX 300 ML IV SCH ×2 (08:59→20:47)
[2017-10-21] MEDS: hydrocortisone sod succ/PF 100mg/2ml inj. IV SCH (09:00)
[2017-10-21] MEDS: pregabalin 25mg capsule PO SCH ×2 (09:01→20:46)
[2017-10-21] MEDS: pregabalin 75mg capsule PO SCH ×2 (09:01→20:46)
[2017-10-21] MEDS: docusate sodium 100mg/10ml UD cup NG SCH ×2 (09:01→20:45)
[2017-10-21] MEDS: loratadine 10mg tablet PO SCH (09:01)
[2017-10-21] MEDS: ferrous sulfate 325mg tablet PO SCH (09:02)
[2017-10-21] MEDS: lactobacillus rhamnosus 10,000 MMU CELLS/CAPSULE PO SCH ×2 (09:02→20:47)
[2017-10-21] MEDS: amiodarone 200mg tablet PO SCH ×2 (09:02→20:54)
[2017-10-21] MEDS: silver sulfadiazine cream 400gm jar TP SCH (09:03)
[2017-10-21] MEDS: ipratropium/albuterol 3ml nebule NEB SCH ×4 (09:30→22:56)
[2017-10-21] MEDS: famotidine/PF 10 mg/ml inj IV SCH ×2 (09:35→20:46)
[2017-10-21] MEDS: HYDROcodone/acetaminophen 5mg/325mg tablet PO PRN (14:37)
[2017-10-21] MEDS: apixaban 5mg tablet PO SCH (20:53)
[2017-10-21] MEDS: insulin glargine (Lantus) pen - multi-dose SQ SCH (21:00)
[2017-10-22] VITALS (20 sets, daily range): BP systolic 85–130; BP diastolic 49–69
[2017-10-22] MEDS: meropenem inj 500 MG in normal saline 100ml IV soln 100 ML IV SCH ×2 (00:27→08:23)
[2017-10-22 02:46] LABS: BASOPHILS % (AUTO) 0 % (0-1); EOSINOPHILS # (AUTO) 0.3 X10'3 (0-0.9); HEMATOCRIT 24.8 % (35.0-45.0); HEMOGLOBIN 8.3 g/dl (12.0-16.0); LYMPHOCYTES # (AUTO) 0.5 X10'3 (1.1-4.8); LYMPHOCYTES % (AUTO) 3.4 % (21-51); MEAN CORPUSCULAR HEMOGLOBIN 29.1 PG (27.0-31.0); MEAN CORPUSCULAR HGB CONC 33.5 % (33.0-36.5); MEAN CORPUSCULAR VOLUME 86.7 FL (78-98); MEAN PLATELET VOLUME 13.5 FL (7.4-10.4); MONOCYTES % (AUTO) 6.5 % (2-12); NEUTROPHILS # (AUTO) 14.2 X10'3 (1.8-7.7); NEUTROPHILS % (AUTO) 88.1 % (42-75); PLATELET COUNT 137 X10'3 (140-440); RED BLOOD COUNT 2.85 X10'6 (4.20-5.60); RED CELL DISTRIBUTION WIDTH 14.4 % (11.5-14.5); WHITE BLOOD COUNT 16.1 X10'3 (4.5-11.0)
[2017-10-22] MEDS: polyvinyl alcohol ophthalmic drops 15ml bottle EACHEYE SCH ×4 (02:50→20:11)
[2017-10-22] MEDS: diltiazem 30mg tablet PO SCH ×4 (02:51→20:12)
[2017-10-22 02:52] LABS: ALANINE AMINOTRANSFERASE 52 U/L (12-78); ALBUMIN 1.5 G/DL (3.4-5.0); ALBUMIN/GLOBULIN RATIO 0.3 (1.1-1.5); ALKALINE PHOSPHATASE 167 IU/L (46-116); ANION GAP 10 (8-16); ASPARTATE AMINO TRANSFERASE 27 U/L (10-37); BILIRUBIN,TOTAL 0.4 MG/DL (0.1-1.0); BLOOD UREA NITROGEN 70 MG/DL (7-18); BUN/CREATININE RATIO 64.2 (6.6-38.0); CALCIUM 7.6 MG/DL (8.5-10.1); CHLORIDE 113 MMOL/L (99-107); CREATININE 1.09 MG/DL (0.40-0.90); GLUCOSE 112 MG/DL (70-104); MAGNESIUM 1.7 MG/DL (1.5-2.4); PHOSPHORUS 2.9 MG/DL (2.3-4.5); POTASSIUM 3.9 MMOL/L (3.5-5.1); PREALBUMIN 20.1 MG/DL (19-36); SODIUM 145 MMOL/L (135-145); TOTAL CARBON DIOXIDE 21.6 MMOL/L (24-32); TOTAL PROTEIN 5.8 G/DL (6.4-8.2); eGFR 49 ML/MIN
[2017-10-22] MEDS: insulin regular, human vial - multi-dose SQ SCH ×4 (02:53→20:58)
[2017-10-22] MEDS: ipratropium/albuterol 3ml nebule NEB SCH ×6 (03:03→23:10)
[2017-10-22 04:11] LABS: LARGE PLATELETS MODERATE; PLATELET ESTIMATE DECREASED
[2017-10-22 04:15] LABS: ABG BASE EXCESS -4.9 mmol/L (-2.0-3.0); ABG HCO3 18.5 mmol/L (22.0-26.0); ABG OXYGEN SATURATION 92.6 % (95-98); ABG PCO2 (T) 27.6 mmHg (32.0-45.0); ABG PH (T) 7.442 (7.350-7.450); ABG PO2 (T) 67.4 mmHg (83-108); ALLEN'S TEST Positive; FCOHb 0.1 % (0.5-1.5); FMetHb 0.1 % (0.3-1.12); FO2Hb 92.4 % (94-100); PATIENT TEMPERATURE 36.5; PEEP 5 cm H2O; RESPIRATORY RATE 12 b/min; TIDAL VOLUME 500 mL; TOTAL HEMOGLOBIN 8.6 G/dl (12.0-16.0)
[2017-10-22] MEDS: docusate sodium 100mg/10ml UD cup NG SCH ×2 (08:00→20:12)
[2017-10-22] MEDS: amiodarone 200mg tablet PO SCH ×2 (08:18→20:12)
[2017-10-22] MEDS: ferrous sulfate 325mg tablet PO SCH (08:19)
[2017-10-22] MEDS: loratadine 10mg tablet PO SCH (08:19)
[2017-10-22] MEDS: apixaban 5mg tablet PO SCH ×2 (08:19→20:12)
[2017-10-22] MEDS: pregabalin 25mg capsule PO SCH ×2 (08:20→20:12)
[2017-10-22] MEDS: lactobacillus rhamnosus 10,000 MMU CELLS/CAPSULE PO SCH ×2 (08:21→20:12)
[2017-10-22] MEDS: levoTHYROXINE 100mcg tablet PO SCH (08:21)
[2017-10-22] MEDS: famotidine/PF 10 mg/ml inj IV SCH ×2 (08:22→20:11)
[2017-10-22] MEDS: LIDOcaine 5% patch TP SCH (08:27)
[2017-10-22] MEDS: silver sulfadiazine cream 400gm jar TP SCH ×2 (08:50→08:52)
[2017-10-22] MEDS: pregabalin 75mg capsule PO SCH ×2 (08:59→20:12)
[2017-10-22] MEDS: hydrocortisone sod succ/PF 100mg/2ml inj. IV SCH (08:59)
[2017-10-22] MEDS ORDERED: FLU VACC QS2017-18 36MOS UP/PF 60 MCG/0.5 ML SYRINGE IMVAC ONE (10:00)
[2017-10-22] MEDS: linezolid 600mg/300ml PREMIX 300 ML IV SCH ×2 (11:25→20:10)
[2017-10-22] MEDS ORDERED: acyclovir 5% 2 GM cream TP SCH ×2 (12:00→15:00)
[2017-10-22] MEDS ORDERED: acyclovir 5% 15GM ointment TP SCH (12:29)
[2017-10-22] MEDS: acyclovir 5% ointment 5gm TP SCH ×4 (14:35→23:31)
[2017-10-22] MEDS: insulin glargine (Lantus) pen - multi-dose SQ SCH (20:57)
[2017-10-23] VITALS (23 sets, daily range): BP systolic 89–131; BP diastolic 46–81
[2017-10-23] MEDS: polyvinyl alcohol ophthalmic drops 15ml bottle EACHEYE SCH ×4 (01:40→19:38)
[2017-10-23] MEDS: diltiazem 30mg tablet PO SCH ×4 (01:40→19:39)
[2017-10-23] MEDS: insulin regular, human vial - multi-dose SQ SCH ×4 (01:49→21:24)
[2017-10-23] MEDS: ipratropium/albuterol 3ml nebule NEB SCH ×6 (03:13→23:03)
[2017-10-23 03:31] LABS: BASOPHILS % (AUTO) 0.2 % (0-1); EOSINOPHILS # (AUTO) 0.4 X10'3 (0-0.9); HEMATOCRIT 26.5 % (35.0-45.0); HEMOGLOBIN 8.8 g/dl (12.0-16.0); LYMPHOCYTES # (AUTO) 0.8 X10'3 (1.1-4.8); LYMPHOCYTES % (AUTO) 4.2 % (21-51); MEAN CORPUSCULAR HEMOGLOBIN 28.8 PG (27.0-31.0); MEAN CORPUSCULAR HGB CONC 33.2 % (33.0-36.5); MEAN CORPUSCULAR VOLUME 86.9 FL (78-98); MEAN PLATELET VOLUME 13.5 FL (7.4-10.4); MONOCYTES # (AUTO) 1.2 X10'3 (0-0.9); MONOCYTES % (AUTO) 6.5 % (2-12); NEUTROPHILS # (AUTO) 15.7 X10'3 (1.8-7.7); NEUTROPHILS % (AUTO) 87.1 % (42-75); PLATELET COUNT 179 X10'3 (140-440); RED BLOOD COUNT 3.05 X10'6 (4.20-5.60); RED CELL DISTRIBUTION WIDTH 14.7 % (11.5-14.5)
[2017-10-23 03:48] LABS: ALBUMIN 1.6 G/DL (3.4-5.0); ANION GAP 12 (8-16); BLOOD UREA NITROGEN 66 MG/DL (7-18); BUN/CREATININE RATIO 61.7 (6.6-38.0); CALCIUM 7.9 MG/DL (8.5-10.1); CHLORIDE 112 MMOL/L (99-107); CREATININE 1.07 MG/DL (0.40-0.90); GLUCOSE 97 MG/DL (70-104); MAGNESIUM 1.7 MG/DL (1.5-2.4); POTASSIUM 3.8 MMOL/L (3.5-5.1); SODIUM 145 MMOL/L (135-145); TOTAL CARBON DIOXIDE 21.1 MMOL/L (24-32); eGFR 50 ML/MIN
[2017-10-23 03:53] LABS: LARGE PLATELETS MODERATE; PLATELET ESTIMATE INCREASED
[2017-10-23] MEDS: silver sulfadiazine cream 400gm jar TP SCH (03:54)
[2017-10-23] MEDS: acyclovir 5% ointment 5gm TP SCH ×5 (03:54→19:39)
[2017-10-23] MEDS: levoTHYROXINE 100mcg tablet PO SCH (07:31)
[2017-10-23] MEDS: loratadine 10mg tablet PO SCH (07:31)
[2017-10-23] MEDS: famotidine/PF 10 mg/ml inj IV SCH ×2 (07:31→19:38)
[2017-10-23] MEDS: pregabalin 25mg capsule PO SCH ×2 (07:31→19:38)
[2017-10-23] MEDS: amiodarone 200mg tablet PO SCH ×2 (07:31→19:39)
[2017-10-23] MEDS: LIDOcaine 5% patch TP SCH (07:31)
[2017-10-23] MEDS: pregabalin 75mg capsule PO SCH ×2 (07:31→19:38)
[2017-10-23] MEDS: ferrous sulfate 325mg tablet PO SCH (07:31)
[2017-10-23] MEDS: lactobacillus rhamnosus 10,000 MMU CELLS/CAPSULE PO SCH ×2 (07:41→19:39)
[2017-10-23] MEDS: apixaban 5mg tablet PO SCH (08:00)
[2017-10-23] MEDS: docusate sodium 100mg/10ml UD cup NG SCH (08:00)
[2017-10-23] MEDS: linezolid 600mg/300ml PREMIX 300 ML IV SCH ×2 (09:01→19:38)
[2017-10-23] MEDS ORDERED: docusate sodium 100mg/10ml UD cup NG PRN (10:20)
[2017-10-23] MEDS: insulin glargine (Lantus) pen - multi-dose SQ SCH (21:23)
[2017-10-24] VITALS (22 sets, daily range): BP systolic 83–118; BP diastolic 56–78
[2017-10-24] MEDS: acyclovir 5% ointment 5gm TP SCH ×6 (00:20→20:29)
[2017-10-24] MEDS: polyvinyl alcohol ophthalmic drops 15ml bottle EACHEYE SCH ×4 (01:28→20:28)
[2017-10-24] MEDS: diltiazem 30mg tablet PO SCH ×4 (01:28→20:29)
[2017-10-24] MEDS: insulin regular, human vial - multi-dose SQ SCH ×2 (02:08→21:17)
[2017-10-24 03:18] LABS: ALANINE AMINOTRANSFERASE 40 U/L (12-78); ALBUMIN 1.5 G/DL (3.4-5.0); ALBUMIN/GLOBULIN RATIO 0.3 (1.1-1.5); ALKALINE PHOSPHATASE 143 IU/L (46-116); ANION GAP 11 (8-16); ASPARTATE AMINO TRANSFERASE 19 U/L (10-37); BILIRUBIN,TOTAL 0.3 MG/DL (0.1-1.0); BLOOD UREA NITROGEN 65 MG/DL (7-18); BUN/CREATININE RATIO 66.3 (6.6-38.0); CALCIUM 7.8 MG/DL (8.5-10.1); CHLORIDE 113 MMOL/L (99-107); CREATININE 0.98 MG/DL (0.40-0.90); GLUCOSE 101 MG/DL (70-104); MAGNESIUM 1.8 MG/DL (1.5-2.4); PHOSPHORUS 2.9 MG/DL (2.3-4.5); POTASSIUM 3.8 MMOL/L (3.5-5.1); SODIUM 144 MMOL/L (135-145); TOTAL CARBON DIOXIDE 20.5 MMOL/L (24-32); TOTAL PROTEIN 5.8 G/DL (6.4-8.2); eGFR 55 ML/MIN
[2017-10-24] MEDS: ipratropium/albuterol 3ml nebule NEB SCH ×6 (03:42→22:38)
[2017-10-24] MEDS: amiodarone 200mg tablet PO SCH ×2 (08:00→20:29)
[2017-10-24] MEDS: LIDOcaine 5% patch TP SCH (09:07)
[2017-10-24] MEDS: lactobacillus rhamnosus 10,000 MMU CELLS/CAPSULE PO SCH ×2 (09:08→20:29)
[2017-10-24] MEDS: linezolid 600mg/300ml PREMIX 300 ML IV SCH ×2 (09:08→20:29)
[2017-10-24] MEDS: levoTHYROXINE 100mcg tablet PO SCH (09:08)
[2017-10-24] MEDS: famotidine/PF 10 mg/ml inj IV SCH ×2 (09:08→20:28)
[2017-10-24] MEDS: ferrous sulfate 325mg tablet PO SCH (09:09)
[2017-10-24] MEDS: pregabalin 75mg capsule PO SCH ×2 (09:09→20:29)
[2017-10-24] MEDS: pregabalin 25mg capsule PO SCH ×2 (09:09→20:29)
[2017-10-24] MEDS: loratadine 10mg tablet PO SCH (09:09)
[2017-10-24] MEDS: silver sulfadiazine cream 400gm jar TP SCH (09:11)
[2017-10-24] MEDS: insulin glargine (Lantus) pen - multi-dose SQ SCH (21:16)
[2017-10-24] MEDS: dextrose 5%-lactated ringers 1,000 ML IV SCH (22:14)
[2017-10-25] VITALS (36 sets, daily range): BP systolic 81–132; BP diastolic 49–79
[2017-10-25] MEDS: acyclovir 5% ointment 5gm TP SCH ×6 (00:24→19:51)
[2017-10-25] MEDS: ipratropium/albuterol 3ml nebule NEB SCH ×6 (02:27→22:28)
[2017-10-25 02:33] LABS: ALBUMIN 1.3 G/DL (3.4-5.0); ANION GAP 9 (8-16); BLOOD UREA NITROGEN 56 MG/DL (7-18); BUN/CREATININE RATIO 57.7 (6.6-38.0); CALCIUM 7.7 MG/DL (8.5-10.1); CHLORIDE 112 MMOL/L (99-107); CREATININE 0.97 MG/DL (0.40-0.90); GLUCOSE 98 MG/DL (70-104); MAGNESIUM 1.7 MG/DL (1.5-2.4); PREALBUMIN 18.1 MG/DL (19-36); SODIUM 143 MMOL/L (135-145); TOTAL CARBON DIOXIDE 21.6 MMOL/L (24-32); eGFR 56 ML/MIN
[2017-10-25] MEDS: polyvinyl alcohol ophthalmic drops 15ml bottle EACHEYE SCH ×4 (02:35→19:49)
[2017-10-25] MEDS: diltiazem 30mg tablet PO SCH ×4 (02:36→19:51)
[2017-10-25] MEDS: dextrose 5%-lactated ringers 1,000 ML IV SCH ×3 (03:55→17:02)
[2017-10-25 04:36] LABS: ABG BASE EXCESS -4.7 mmol/L (-2.0-3.0); ABG HCO3 18.6 mmol/L (22.0-26.0); ABG OXYGEN SATURATION 93.6 % (95-98); ABG PCO2 (T) 27.2 mmHg (32.0-45.0); ABG PH (T) 7.453 (7.350-7.450); ABG PO2 (T) 72.6 mmHg (83-108); ALLEN'S TEST Positive; FCOHb 0.2 % (0.5-1.5); FO2Hb 93.4 % (94-100); MINUTE VOLUME 10 L/min; PATIENT TEMPERATURE 36.8; PEEP 5 cm H2O; RESPIRATORY RATE 12 b/min; RESPIRATORY RATE (OBSERVED) 16 b/min; TIDAL VOLUME 500 mL; TOTAL HEMOGLOBIN 7.7 G/dl (12.0-16.0)
[2017-10-25 06:31] LABS: BASOPHILS % (AUTO) 0.4 % (0-1); EOSINOPHILS # (AUTO) 0.2 X10'3 (0-0.9); EOSINOPHILS % (AUTO) 2.2 % (0-6); HEMOGLOBIN 7.2 g/dl (12.0-16.0); LYMPHOCYTES # (AUTO) 0.7 X10'3 (1.1-4.8); LYMPHOCYTES % (AUTO) 6.8 % (21-51); MEAN CORPUSCULAR HEMOGLOBIN 28.5 PG (27.0-31.0); MEAN CORPUSCULAR VOLUME 86.2 FL (78-98); MEAN PLATELET VOLUME 12.4 FL (7.4-10.4); MONOCYTES # (AUTO) 0.6 X10'3 (0-0.9); MONOCYTES % (AUTO) 5.9 % (2-12); NEUTROPHILS # (AUTO) 8.4 X10'3 (1.8-7.7); NEUTROPHILS % (AUTO) 84.7 % (42-75); PLATELET COUNT 136 X10'3 (140-440); RED BLOOD COUNT 2.53 X10'6 (4.20-5.60); WHITE BLOOD COUNT 9.9 X10'3 (4.5-11.0)
[2017-10-25 06:35] LABS: HEMATOCRIT 21.8 % (35.0-45.0)
[2017-10-25 06:36] LABS: PROTHROMBIN TIME 10.8 SECONDS (9.0-12.0)
[2017-10-25] MEDS ORDERED: LIDOcaine 1% 30ml preserv. free vial ONE (06:50)
[2017-10-25] MEDS ORDERED: BUPIVAcaine/PF 2.5 mg/ml (0.25%) 30ml vial ONE (06:50)
[2017-10-25] MEDS ORDERED: desflurane 240ml liquid inh. IH ONE (07:18)
[2017-10-25] MEDS ORDERED: fentaNYL/PF 50MCG/1 ML 2ML syringe ONE (07:34)
[2017-10-25] MEDS ORDERED: MIDAZolam 5mg/5ml vial ONE (07:35)
[2017-10-25] MEDS ORDERED: clindamycin phosphate 150mg/ml inj. ONE (07:49)
[2017-10-25] MEDS: amiodarone 200mg tablet PO SCH ×2 (08:00→19:50)
[2017-10-25] MEDS ORDERED: ringers solution, lacted 1,000 ML IV SCH (09:17)
[2017-10-25] MEDS ORDERED: ondansetron/PF 4mg/2ml inj IV PRN (09:20)
[2017-10-25] MEDS ORDERED: meperidine/PF 50mg/ml syringe IV PRN (09:20)
[2017-10-25] MEDS ORDERED: proCHLORperazine 10 MG/2 ml inj IV PRN (09:20)
[2017-10-25] MEDS ORDERED: morphine 4 MG/ML inj SYRINge IV PRN ×2 (09:20)
[2017-10-25] MEDS: famotidine/PF 10 mg/ml inj IV SCH ×2 (09:28→19:55)
[2017-10-25] MEDS: pregabalin 25mg capsule PO SCH ×2 (09:29→19:51)
[2017-10-25] MEDS: loratadine 10mg tablet PO SCH (09:30)
[2017-10-25] MEDS: pregabalin 75mg capsule PO SCH ×2 (09:30→19:50)
[2017-10-25] MEDS: lactobacillus rhamnosus 10,000 MMU CELLS/CAPSULE PO SCH ×2 (09:30→19:50)
[2017-10-25] MEDS: LIDOcaine 5% patch TP SCH (09:30)
[2017-10-25] MEDS: linezolid 600mg/300ml PREMIX 300 ML IV SCH ×2 (09:31→19:49)
[2017-10-25] MEDS: silver sulfadiazine cream 400gm jar TP SCH (09:32)
[2017-10-25] MEDS: levoTHYROXINE 100mcg tablet PO SCH (09:57)
[2017-10-25] MEDS ORDERED: ferrous sulfate 300mg/5ml UD oral liquid PO SCH (10:56)
[2017-10-25] MEDS: HYDROcodone/acetaminophen 5mg/325mg tablet PO PRN (19:50)
[2017-10-25] MEDS: insulin glargine (Lantus) pen - multi-dose SQ SCH (19:52)
[2017-10-26] VITALS (13 sets, daily range): BP systolic 91–125; BP diastolic 45–65
[2017-10-26] MEDS: acyclovir 5% ointment 5gm TP SCH ×4 (00:11→12:16)
[2017-10-26] MEDS: diltiazem 30mg tablet PO SCH ×2 (02:00→07:22)
[2017-10-26] MEDS: ipratropium/albuterol 3ml nebule NEB SCH ×3 (02:25→10:19)
[2017-10-26] MEDS: polyvinyl alcohol ophthalmic drops 15ml bottle EACHEYE SCH ×2 (02:51→07:23)
[2017-10-26 03:07] LABS: BASOPHILS # (AUTO) 0.1 X10'3 (0-0.2); BASOPHILS % (AUTO) 0.6 % (0-1); EOSINOPHILS % (AUTO) 0.3 % (0-6); HEMATOCRIT 25.5 % (35.0-45.0); HEMOGLOBIN 8.5 g/dl (12.0-16.0); LYMPHOCYTES # (AUTO) 0.5 X10'3 (1.1-4.8); LYMPHOCYTES % (AUTO) 4.6 % (21-51); MEAN CORPUSCULAR HEMOGLOBIN 29.2 PG (27.0-31.0); MEAN CORPUSCULAR HGB CONC 33.3 % (33.0-36.5); MEAN CORPUSCULAR VOLUME 87.7 FL (78-98); MEAN PLATELET VOLUME 12.5 FL (7.4-10.4); MONOCYTES # (AUTO) 0.3 X10'3 (0-0.9); MONOCYTES % (AUTO) 3.4 % (2-12); NEUTROPHILS # (AUTO) 9.2 X10'3 (1.8-7.7); NEUTROPHILS % (AUTO) 91.1 % (42-75); PLATELET COUNT 118 X10'3 (140-440); RED CELL DISTRIBUTION WIDTH 14.4 % (11.5-14.5); WHITE BLOOD COUNT 10.1 X10'3 (4.5-11.0)
[2017-10-26 03:41] LABS: ALANINE AMINOTRANSFERASE 30 U/L (12-78); ALBUMIN 1.4 G/DL (3.4-5.0); ALBUMIN/GLOBULIN RATIO 0.3 (1.1-1.5); ALKALINE PHOSPHATASE 107 IU/L (46-116); ANION GAP 11 (8-16); ASPARTATE AMINO TRANSFERASE 17 U/L (10-37); BILIRUBIN,TOTAL 0.6 MG/DL (0.1-1.0); BLOOD UREA NITROGEN 45 MG/DL (7-18); BUN/CREATININE RATIO 44.1 (6.6-38.0); CALCIUM 7.3 MG/DL (8.5-10.1); CHLORIDE 111 MMOL/L (99-107); CREATININE 1.02 MG/DL (0.40-0.90); GLUCOSE 127 MG/DL (70-104); MAGNESIUM 1.8 MG/DL (1.5-2.4); PHOSPHORUS 3.4 MG/DL (2.3-4.5); POTASSIUM 4.3 MMOL/L (3.5-5.1); SODIUM 142 MMOL/L (135-145); TOTAL CARBON DIOXIDE 19.6 MMOL/L (24-32); TOTAL PROTEIN 5.5 G/DL (6.4-8.2); eGFR 53 ML/MIN
[2017-10-26 03:43] LABS: PLATELET ESTIMATE DECREASED
[2017-10-26 03:44] LABS: LARGE PLATELETS MODERATE
[2017-10-26 03:51] LABS: ABG BASE EXCESS -5.2 mmol/L (-2.0-3.0); ABG HCO3 17.5 mmol/L (22.0-26.0); ABG OXYGEN SATURATION 94.5 % (95-98); ABG PCO2 (T) 25.1 mmHg (32.0-45.0); ALLEN'S TEST Positive; FCOHb 0.8 % (0.5-1.5); FMetHb 0.3 % (0.3-1.12); FO2Hb 93.5 % (94-100); MINUTE VOLUME 10 L/min; PEEP 5 cm H2O; RESPIRATORY RATE 12 b/min; RESPIRATORY RATE (OBSERVED) 20 b/min; TIDAL VOLUME 500 mL; TOTAL HEMOGLOBIN 9.6 G/dl (12.0-16.0)
[2017-10-26] MEDS: dextrose 5%-lactated ringers 1,000 ML IV SCH (05:44)
[2017-10-26] MEDS: pregabalin 75mg capsule PO SCH (07:22)
[2017-10-26] MEDS: loratadine 10mg tablet PO SCH (07:22)
[2017-10-26] MEDS: levoTHYROXINE 100mcg tablet PO SCH (07:22)
[2017-10-26] MEDS: lactobacillus rhamnosus 10,000 MMU CELLS/CAPSULE PO SCH (07:22)
[2017-10-26] MEDS: pregabalin 25mg capsule PO SCH (07:22)
[2017-10-26] MEDS: famotidine/PF 10 mg/ml inj IV SCH (07:23)
[2017-10-26] MEDS: amiodarone 200mg tablet PO SCH (07:24)
[2017-10-26] MEDS: linezolid 600mg/300ml PREMIX 300 ML IV SCH (07:24)
[2017-10-26] MEDS: silver sulfadiazine cream 400gm jar TP SCH (07:47)
[2017-10-26] MEDS: LIDOcaine 5% patch TP SCH (07:47)
== END 2017-10-26 13:13 | DRG 4 ==
LOC: ER 14:10 → ED HOLD 19:01 → ICU 2S 21:35 → CMPBEDREQ 21:51
PROVIDERS: ADMIT Internal Medicine Critical Care Medicine; ATTEND Internal Medicine Critical Care Medicine
PROC: 5A1955Z Respiratory Ventilation, Greater than 96 Consecutive Hours (ICD-10-PCS; principal; 2017-10-08)
PROC: 0BH18EZ Insertion of Endotracheal Airway into Trachea, Via Natural or Artificial Opening Endoscopic (ICD-10-PCS; 2017-10-08)
PROC: 02HV33Z Insertion of Infusion Device into Superior Vena Cava, Percutaneous Approach (ICD-10-PCS; 2017-10-08)
PROC: 02HV33Z Insertion of Infusion Device into Superior Vena Cava, Percutaneous Approach (ICD-10-PCS; 2017-10-16)
PROC: B548ZZA Ultrasonography of Superior Vena Cava, Guidance (ICD-10-PCS; 2017-10-16)
PROC: 0B110F4 Bypass Trachea to Cutaneous with Tracheostomy Device, Open Approach (ICD-10-PCS; 2017-10-25)
PROC: 30233N1 Transfusion of Nonautologous Red Blood Cells into Peripheral Vein, Percutaneous Approach (ICD-10-PCS; 2017-10-25)
PROC: 0DH63UZ Insertion of Feeding Device into Stomach, Percutaneous Approach (ICD-10-PCS; 2017-10-25)
DX: A41.01 Sepsis due to Methicillin susceptible Staphylococcus aureus (principal); R65.21 Severe sepsis with septic shock; J15.211 Pneumonia due to Methicillin susceptible Staphylococcus aureus; N17.9 Acute kidney failure, unspecified; J96.21 Acute and chronic respiratory failure with hypoxia; E11.42 Type 2 diabetes mellitus with diabetic polyneuropathy; E11.51 Type 2 diabetes mellitus with diabetic peripheral angiopathy without gangrene; D69.6 Thrombocytopenia, unspecified; L03.115 Cellulitis of right lower limb; N39.0 Urinary tract infection, site not specified; J44.0 Chronic obstructive pulmonary disease with (acute) lower respiratory infection; J44.1 Chronic obstructive pulmonary disease with (acute) exacerbation; Z99.11 Dependence on respirator [ventilator] status; Z68.41 Body mass index [BMI] 40.0-44.9, adult; E87.0 Hyperosmolality and hypernatremia; I11.0 Hypertensive heart disease with heart failure; I50.9 Heart failure, unspecified; I48.91 Unspecified atrial fibrillation; B96.20 Unspecified Escherichia coli [E. coli] as the cause of diseases classified elsewhere; I25.10 Atherosclerotic heart disease of native coronary artery without angina pectoris; G89.29 Other chronic pain; R41.89 Other symptoms and signs involving cognitive functions and awareness; I34.0 Nonrheumatic mitral (valve) insufficiency; B00.9 Herpesviral infection, unspecified; K21.9 Gastro-esophageal reflux disease without esophagitis; E03.9 Hypothyroidism, unspecified; Z95.1 Presence of aortocoronary bypass graft; Z88.8 Allergy status to other drugs, medicaments and biological substances; Z86.73 Personal history of transient ischemic attack (TIA), and cerebral infarction without residual deficits; Z87.11 Personal history of peptic ulcer disease; Z80.9 Family history of malignant neoplasm, unspecified; Z82.0 Family history of epilepsy and other diseases of the nervous system; Z82.49 Family history of ischemic heart disease and other diseases of the circulatory system; Z82.5 Family history of asthma and other chronic lower respiratory diseases; Z83.3 Family history of diabetes mellitus; Z56.0 Unemployment, unspecified
CPT/HCPCS: 36415; 36569; 36600; 71045; 71250; 76700; 76775; 76937; 80048; 80053; 80202; 81001; 82150; 82803; 82810; 82948; 83036; 83605; 83690; 83735; 83880; 84100; 84132; 84134; 84145; 84439; 84443; 84484; 85018; 85025; 85610; 85730; 86885; 86900; 86901; 86920; 87040; 87070; 87077; 87088; 87186; 87502; 87503; 93005; 93306; 93922; 93970; 94002; 94003; 94640; 94660; 94760; 97110; 97161; 97530; 99291; 99292; A4315; A4333; A4623; A6212; A6213; A6222; A6223; A6251; A6446; A6449; A7000; A7015; A7521; A7526; C1751; J0330; J1644; J1650; J1720; J1815; J1940; J1956; J2020; J2185; J2250; J2543; J2930; J3010; J3370; J3475; J3480; J3490; J7030; J7060; J7070; J7120; P9016; P9045; P9047

== ENCOUNTER 2019-04-15 12:49 | Emergency (ER) | payer MEDICARE, MEDICAID ==
[~2019-04-15] VITALS: Ht 144.8 cm; Wt 79.5 kg
[~2019-04-15 12:49] MED LIST changes: -IPRA3AMP IH; +IPRA3AMP31 IH; +LEVO100T PO; -NORepinephrine 1 mg/ml inj IV ONE; -SPIR25TA3 PO; +SPIR25TA5 PO
[2019-04-15 13:38] LABS: BASOPHILS # (AUTO) 0.1 X10'3 (0-0.2); BASOPHILS % (AUTO) 1.1 % (0-1); EOSINOPHILS # (AUTO) 0.1 X10'3 (0-0.9); EOSINOPHILS % (AUTO) 1.9 % (0-6); HEMATOCRIT 41.5 % (35.0-45.0); HEMOGLOBIN 13.6 g/dl (12.0-16.0); LYMPHOCYTES # (AUTO) 0.8 X10'3 (1.1-4.8); LYMPHOCYTES % (AUTO) 14.1 % (21-51); MEAN CORPUSCULAR HEMOGLOBIN 28.1 PG (27.0-31.0); MEAN CORPUSCULAR HGB CONC 32.7 g/dL (33.0-36.5); MEAN CORPUSCULAR VOLUME 86.1 FL (78-98); MEAN PLATELET VOLUME 9.6 FL (7.4-10.4); MONOCYTES # (AUTO) 0.4 X10'3 (0-0.9); MONOCYTES % (AUTO) 7.9 % (2-12); NEUTROPHILS # (AUTO) 4.2 X10'3 (1.8-7.7); PLATELET COUNT 111 X10'3 (140-440); RED BLOOD COUNT 4.82 X10'6 (4.20-5.60); RED CELL DISTRIBUTION WIDTH 16.8 % (11.5-14.5); WHITE BLOOD COUNT 5.6 X10'3 (4.5-11.0)
[2019-04-15 13:52] LABS: ALANINE AMINOTRANSFERASE 29 U/L (12-78); ALKALINE PHOSPHATASE 143 IU/L (46-116); ANION GAP 10 (8-16); ASPARTATE AMINO TRANSFERASE 22 U/L (10-37); BILIRUBIN,TOTAL 0.5 MG/DL (0.1-1.0); BLOOD UREA NITROGEN 38 MG/DL (7-18); BUN/CREATININE RATIO 16.6 (6.6-38.0); CALCIUM 8.2 MG/DL (8.5-10.1); CHLORIDE 106 MMOL/L (99-107); CREATININE 2.29 MG/DL (0.40-0.90); GLUCOSE 128 MG/DL (70-104); POTASSIUM 3.6 MMOL/L (3.5-5.1); SODIUM 147 MMOL/L (135-145); TOTAL CARBON DIOXIDE 30.6 MMOL/L (24-32); eGFR 21 ML/MIN
[2019-04-15] MEDS ORDERED: acetaminophen 325mg tablet PO ONE (14:45)
[2019-04-15] MEDS ORDERED: codeine/proMETHazine 5ml UD syrup PO ONE (14:45)
[2019-04-15] MEDS ORDERED: normal saline 1000ML IV soln IVB ONE (14:45)
[2019-04-15] MEDS ORDERED: benzonatate 100mg capsule PO ONE (14:45)
[2019-04-15] MEDS ORDERED: GUAI473S11 PO (14:47)
[2019-04-15] MEDS ORDERED: BENZ-16 PO (14:47)
[2019-04-15] MEDS ORDERED: ONDA8TAB13 PO (14:47)
[2019-04-15] MEDS ORDERED: ipratropium/albuterol 3ml nebule NEB ONE (14:50)
[2019-04-15 16:02] VITALS: BP 126/77
[2019-04-16] MEDS ORDERED: AMIO100T PO (16:09)
[2019-04-16] MEDS ORDERED: OXYB5TAB16 PO (16:09)
[2019-04-16] MEDS ORDERED: FURO40TA4 PO (16:11)
[2019-04-16] MEDS ORDERED: FAMO20TA8 PO (16:12)
[2019-04-16] MEDS ORDERED: POTA20TA19 PO (16:12)
[2019-04-16] MEDS ORDERED: DOCU-20 PO (16:15)
[2019-04-16] MEDS ORDERED: HYDR-3686 PO (16:17)
[2019-04-16] MEDS ORDERED: HYDR-3717 PO (16:18)
[2019-04-16] MEDS ORDERED: ONDA8TAB13 PO (16:19)
[2019-04-16] MEDS ORDERED: BENZ-49 PO (16:23)
[2019-04-16] MEDS ORDERED: GUAI118S13 PO (16:23)
[2019-04-16] MEDS ORDERED: UMEC62.5 IH (17:02)
[2019-04-16] MEDS ORDERED: DILT-94 PO (17:02)
== END 2019-04-15 16:03 | disposition home or self-care (01) ==
LOC: ER 12:49
DX: R05 Cough (principal); F03.90 Unspecified dementia, unspecified severity, without behavioral disturbance, psychotic disturbance, mood disturbance, and anxiety; I48.91 Unspecified atrial fibrillation; I25.10 Atherosclerotic heart disease of native coronary artery without angina pectoris; I11.0 Hypertensive heart disease with heart failure; I50.9 Heart failure, unspecified; E11.9 Type 2 diabetes mellitus without complications; E07.9 Disorder of thyroid, unspecified; G89.29 Other chronic pain; J43.9 Emphysema, unspecified; Z98.61 Coronary angioplasty status; Z86.73 Personal history of transient ischemic attack (TIA), and cerebral infarction without residual deficits; Z95.1 Presence of aortocoronary bypass graft; Z87.11 Personal history of peptic ulcer disease; Z98.890 Other specified postprocedural states; Z56.0 Unemployment, unspecified; Z88.1 Allergy status to other antibiotic agents; Z88.8 Allergy status to other drugs, medicaments and biological substances; Z79.899 Other long term (current) drug therapy
CPT/HCPCS: 36415; 71046; 80053; 83605; 85025; 87040; 93005; 94640; 94760; 99284; J7040

== ENCOUNTER 2019-04-16 13:14 | Inpatient (IN) | payer MEDICARE, MEDICAID ==
[~2019-04-16] VITALS: Ht 142.2 cm; Wt 77.9 kg
[~2019-04-16 13:14] MED LIST changes: +BARIUM SULFATE 340 ML SUSP.RECON***PROCEDURE AREA ONLY**DONT ENTER PO ONE; +BENZ-16 PO; +GUAI473S11 PO; +ONDA8TAB13 PO
[2019-04-16 14:39] LABS: BASOPHILS % (AUTO) 0.3 % (0-1); EOSINOPHILS # (AUTO) 0.1 X10'3 (0-0.9); EOSINOPHILS % (AUTO) 2.3 % (0-6); HEMATOCRIT 40.3 % (35.0-45.0); HEMOGLOBIN 13.4 g/dl (12.0-16.0); LYMPHOCYTES # (AUTO) 0.8 X10'3 (1.1-4.8); LYMPHOCYTES % (AUTO) 13.3 % (21-51); MEAN CORPUSCULAR HEMOGLOBIN 28.8 PG (27.0-31.0); MEAN CORPUSCULAR HGB CONC 33.3 g/dL (33.0-36.5); MEAN CORPUSCULAR VOLUME 86.6 FL (78-98); MEAN PLATELET VOLUME 10.4 FL (7.4-10.4); MONOCYTES # (AUTO) 0.5 X10'3 (0-0.9); MONOCYTES % (AUTO) 8.8 % (2-12); NEUTROPHILS # (AUTO) 4.3 X10'3 (1.8-7.7); NEUTROPHILS % (AUTO) 75.3 % (42-75); PLATELET COUNT 104 X10'3 (140-440); RED BLOOD COUNT 4.65 X10'6 (4.20-5.60); RED CELL DISTRIBUTION WIDTH 17.1 % (11.5-14.5); WHITE BLOOD COUNT 5.7 X10'3 (4.5-11.0)
[2019-04-16] MEDS ORDERED: levoFLOXACIN-Levaquin 750MG/D5 150 ML IV STA (14:41)
[2019-04-16] MEDS ORDERED: ipratropium/albuterol 3ml nebule NEB ONE (14:45)
[2019-04-16] MEDS ORDERED: methylPREDNISolone sod succ 125mg/2ml vial IV ONE (14:45)
[2019-04-16 14:53] LABS: ALANINE AMINOTRANSFERASE 28 U/L (12-78); ALBUMIN 3.6 G/DL (3.4-5.0); ALBUMIN/GLOBULIN RATIO 0.9 (1.1-1.5); ALKALINE PHOSPHATASE 120 IU/L (46-116); ANION GAP 9 (8-16); ASPARTATE AMINO TRANSFERASE 22 U/L (10-37); BILIRUBIN,TOTAL 0.6 MG/DL (0.1-1.0); BLOOD UREA NITROGEN 40 MG/DL (7-18); CALCIUM 7.8 MG/DL (8.5-10.1); CHLORIDE 108 MMOL/L (99-107); GLUCOSE 119 MG/DL (70-104); POTASSIUM 4.5 MMOL/L (3.5-5.1); SODIUM 146 MMOL/L (135-145); TOTAL CARBON DIOXIDE 29.3 MMOL/L (24-32); TOTAL PROTEIN 7.4 G/DL (6.4-8.2); eGFR 24 ML/MIN
[2019-04-16 15:00] LABS: MAGNESIUM 1.8 MG/DL (1.5-2.4)
[2019-04-16] MEDS ORDERED: furosemide 10 MG/1 ML 10ml inj IV ONE (15:20)
[2019-04-16] MEDS ORDERED: OXYB5TAB16 PO (16:09)
[2019-04-16] MEDS ORDERED: AMIO100T PO (16:09)
[2019-04-16] MEDS ORDERED: FURO40TA4 PO (16:11)
[2019-04-16] MEDS ORDERED: FAMO20TA8 PO (16:12)
[2019-04-16] MEDS ORDERED: POTA20TA19 PO (16:12)
[2019-04-16] MEDS ORDERED: DOCU-20 PO (16:15)
[2019-04-16] MEDS ORDERED: HYDR-3686 PO (16:17)
[2019-04-16] MEDS ORDERED: HYDR-3717 PO (16:18)
[2019-04-16] MEDS ORDERED: ONDA8TAB13 PO (16:19)
[2019-04-16] MEDS ORDERED: GUAI118S13 PO (16:23)
[2019-04-16] MEDS ORDERED: BENZ-49 PO (16:23)
[2019-04-16 16:37] LABS: CLARITY,URINE SLIGHTLY CLOUDY (Clear); COLOR,URINE YELLOW (Yellow); GLUCOSE, URINE NEGATIVE (Neg); KETONES,URINE NEGATIVE (Neg); LEUKOCYTE ESTERASE ,URINE TRACE (Neg); NITRITES, URINE POSITIVE (Neg); OCCULT BLOOD,URINE NEGATIVE (Neg); PROTEIN,URINE NEGATIVE (Neg); UROBILINOGEN,URINE 0.2 E.U/dL (0.2-1.0)
[2019-04-16] MEDS ORDERED: docusate sod 100mg capsule PO PRN (16:40)
[2019-04-16] MEDS ORDERED: acetaminophen 325mg tablet PO PRN ×2 (16:40)
[2019-04-16] MEDS ORDERED: potassium CL 10mEq/100ml bag 100 ML IV PRN ×2 (16:40)
[2019-04-16] MEDS ORDERED: HYDROmorphone 1 mg/ml syringe IV PRN (16:40)
[2019-04-16] MEDS ORDERED: mag hydrox/Alum hydrox/simeth 30ml oral suspension PO PRN (16:40)
[2019-04-16] MEDS ORDERED: dextrose ORAL solution 15 GM/59 ML bottle PO PRN ×2 (16:40)
[2019-04-16] MEDS ORDERED: dextrose 50%-water 50ml dispensing syringe IV PRN ×2 (16:40)
[2019-04-16] MEDS ORDERED: magnesium 4gm in 100ml NS 100 ML IV PRN (16:40)
[2019-04-16] MEDS ORDERED: HYDROcodone/acetaminophen 5mg/325mg tablet PO PRN (16:40)
[2019-04-16] MEDS ORDERED: MESSAGE TO PHARMACY PO ONE (16:40)
[2019-04-16] MEDS ORDERED: potassium Cl 20 mEq SR tablet PO PRN ×2 (16:40)
[2019-04-16] MEDS ORDERED: HYDROcodone/acetaminophen 10/325mg tab PO PRN (16:40)
[2019-04-16] MEDS ORDERED: magnesium 2GM in 50ml NS 50 ML IV PRN (16:40)
[2019-04-16] MEDS ORDERED: glucagon, human recombinant 1mg kit SUBCUT PRN (16:40)
[2019-04-16] MEDS ORDERED: insulin Lispro (HumaLOG) vial - multi-dose SQ SCH (16:40)
[2019-04-16 16:50] LABS: UA COLLECTION TYPE CLN CATCH MIDSTREAM
[2019-04-16 16:51] LABS: BACTERIA,URINE 4+ /HPF (Neg); RBC,URINE 0-2 /HPF (0-2)
[2019-04-16 16:52] LABS: SQUAMOUS EPITHELIAL CELL,UR FEW /LPF (FEW)
[2019-04-16 16:58] LABS: TRANSITIONAL EPI CELLS,URINE FEW /HPF
[2019-04-16 16:59] LABS: WBC CLUMPS,URINE FEW /HPF (NEGATIVE)
[2019-04-16] MEDS ORDERED: DILT-94 PO (17:02)
[2019-04-16] MEDS ORDERED: UMEC62.5 IH (17:02)
[2019-04-16 17:45] LABS: HEMOGLOBIN A1C 5.7 % (4.5-6.2)
[2019-04-16] MEDS ORDERED: benzonatate 100mg capsule PO PRN (17:55)
[2019-04-16] MEDS ORDERED: GUAIFENESIN PO PRN (17:55)
[2019-04-16] MEDS ORDERED: non-formulary drug (Levalbuterol Tartrate (Xopenex Hfa) 2 PUFFS) INH SCH (17:55)
[2019-04-16] MEDS ORDERED: CODEINE PHOS PO PRN (17:55)
[2019-04-16] MEDS ORDERED: guaiFENesin/codeine phos 10ml UD oral syrup PO PRN (18:05)
[2019-04-16] MEDS ORDERED: non-formulary drug (Pregabalin (Lyrica) 1 CAP) PO SCH (20:00)
[2019-04-16] MEDS: oxybutynin 5mg tablet PO SCH (20:10)
[2019-04-16] MEDS: pregabalin 25mg capsule PO SCH (20:10)
[2019-04-16] MEDS: DOXYCYCLINE 100MG CAPSULE PO SCH (20:11)
--- NOTE | 2019-04-16 20:26 | NUR ---
RT at bedside, patient coughing after swallowing PM medication (see emar). Daughter at bedside states this has been a norm for patient x2 days. RT holding breathing treatment at this time (see emar).
[2019-04-16] MEDS: insulin glargine (Lantus) pen - multi-dose SQ SCH (21:00)
[2019-04-16 21:11] VITALS: BP 128/70
[2019-04-16 22:00] VITALS: BP 113/71
[2019-04-16] MEDS: ipratropium 0.5 MG/2.5ML nebule IH SCH (23:31)
[2019-04-17] MEDS: methylPREDNISolone sod succ 125mg/2ml vial IV SCH ×3 (00:03→16:23)
[2019-04-17] MEDS: albuterol 2.5 MG/3 ML nebule NEB PRN (02:19)
[2019-04-17] MEDS: ipratropium 0.5 MG/2.5ML nebule IH SCH ×4 (02:19→20:03)
--- NOTE | 2019-04-17 02:56 | NUR ---
Was able to collect sputum sample as ordered while respiratory was in with patient administering a breathing treatment. Sample has been taken to lab.
[2019-04-17 06:10] VITALS: BP 129/66
[2019-04-17 06:10] LABS: BASOPHILS % (AUTO) 0.4 % (0-1); EOSINOPHILS % (AUTO) 0.1 % (0-6); HEMATOCRIT 40.9 % (35.0-45.0); HEMOGLOBIN 13.5 g/dl (12.0-16.0); LYMPHOCYTES # (AUTO) 0.4 X10'3 (1.1-4.8); LYMPHOCYTES % (AUTO) 8.7 % (21-51); MEAN CORPUSCULAR HEMOGLOBIN 28.4 PG (27.0-31.0); MEAN PLATELET VOLUME 9.3 FL (7.4-10.4); MONOCYTES % (AUTO) 1.1 % (2-12); NEUTROPHILS # (AUTO) 4.2 X10'3 (1.8-7.7); NEUTROPHILS % (AUTO) 89.7 % (42-75); PLATELET COUNT 82 X10'3 (140-440); RED BLOOD COUNT 4.75 X10'6 (4.20-5.60); RED CELL DISTRIBUTION WIDTH 16.7 % (11.5-14.5); WHITE BLOOD COUNT 4.7 X10'3 (4.5-11.0)
--- NOTE | 2019-04-17 06:12 | NUR ---
Report given to Nelly AARON.
--- NOTE | 2019-04-17 06:28 | NUR ---
I have received patient report from Tracey Srivastava RN
[2019-04-17] MEDS: levoTHYROXINE 100mcg tablet PO SCH (07:57)
[2019-04-17] MEDS: oxybutynin 5mg tablet PO SCH ×2 (07:57→20:00)
[2019-04-17] MEDS: pregabalin 25mg capsule PO SCH ×2 (07:57→20:00)
[2019-04-17] MEDS: DOXYCYCLINE 100MG CAPSULE PO SCH (07:58)
[2019-04-17] MEDS: famotidine 20mg tablet PO SCH (07:58)
[2019-04-17] MEDS: diltiazem CD 120mg capsule (once-daily) PO SCH (07:58)
[2019-04-17] MEDS: amiodarone 100mg tablet PO SCH (07:59)
[2019-04-17] MEDS: K and/or MAG REPLACEMENT MC SCH (08:00)
[2019-04-17] MEDS ORDERED: furosemide 40mg/4ml inj IV SCH (08:00)
[2019-04-17] MEDS ORDERED: non-formulary drug (Umeclidinium Bromide (Incruse Ellipta) 1 PUFF) IH SCH (08:00)
[2019-04-17] MEDS ORDERED: non-formulary drug (Diltiazem HCl (Diltiazem 24Hr ER) 1 CAP) PO SCH (08:00)
[2019-04-17] MEDS ORDERED: enoxaparin 30mg/0.3ml syringe SQ SCH (08:00)
--- NOTE | 2019-04-17 08:42 | NUR ---
patient coughed some of her pills back up. Patient NPO until speech therapy evaluates her.
[2019-04-17] MEDS: ondansetron/PF 4mg/2ml inj IV PRN (09:08)
[2019-04-17 10:00] VITALS: BP 138/46
[2019-04-17 10:10] LABS: ALANINE AMINOTRANSFERASE 28 U/L (12-78); ALBUMIN 3.7 G/DL (3.4-5.0); ALBUMIN/GLOBULIN RATIO 0.9 (1.1-1.5); ALKALINE PHOSPHATASE 124 IU/L (46-116); ANION GAP 6 (8-16); ASPARTATE AMINO TRANSFERASE 17 U/L (10-37); BILIRUBIN,TOTAL 0.5 MG/DL (0.1-1.0); BLOOD UREA NITROGEN 43 MG/DL (7-18); BUN/CREATININE RATIO 22.8 (6.6-38.0); CALCIUM 9.1 MG/DL (8.5-10.1); CHLORIDE 107 MMOL/L (99-107); CHOL/HDL RATIO 3.9 (0.00-4.99); CHOLESTEROL 199 MG/DL (0-200); CREATININE 1.89 MG/DL (0.40-0.90); GLUCOSE 150 MG/DL (70-104); HDL CHOLESTEROL 51 MG/DL (35-60); LDL CHOLESTEROL 131 MG/DL (50-100); MAGNESIUM 1.9 MG/DL (1.5-2.4); POTASSIUM 4.6 MMOL/L (3.5-5.1); SODIUM 146 MMOL/L (135-145); TOTAL CARBON DIOXIDE 33.5 MMOL/L (24-32); TOTAL PROTEIN 7.8 G/DL (6.4-8.2); TRIGLYCERIDES 65 MG/DL (20-135); eGFR 26 ML/MIN
[2019-04-17] MEDS: HYDROmorphone inj. 0.5 MG/0.5 ML DISP.SYRIN IV PRN (14:47)
--- NOTE | 2019-04-17 17:25 | NUR ---
Student documentation: I have reviewed and agree with all interventions, assessments performed and documented by Melia Lake.
[2019-04-17 18:00] VITALS: BP 121/32
--- NOTE | 2019-04-17 18:25 | NUR ---
Patient report given to Tracey Solis RN
[2019-04-17] MEDS: doxycycline inj 100 MG in normal saline 100ml IV soln 100 ML IV SCH (20:37)
[2019-04-17] MEDS: insulin glargine (Lantus) pen - multi-dose SQ SCH (20:40)
[2019-04-17 22:00] VITALS: BP 118/60
[2019-04-18] VITALS (8 sets, daily range): BP systolic 111–147; BP diastolic 54–74
[2019-04-18] MEDS: ipratropium 0.5 MG/2.5ML nebule IH SCH ×4 (03:01→20:24)
[2019-04-18] MEDS: HYDROmorphone inj. 0.5 MG/0.5 ML DISP.SYRIN IV PRN (05:03)
--- NOTE | 2019-04-18 06:27 | NUR ---
Problems reprioritized. Patient report given, questions answered & plan of care reviewed with AGNIESZKA Wong .
[2019-04-18 07:00] LABS: ALANINE AMINOTRANSFERASE 26 U/L (12-78); ALBUMIN 3.4 G/DL (3.4-5.0); ALBUMIN/GLOBULIN RATIO 0.9 (1.1-1.5); ALKALINE PHOSPHATASE 109 IU/L (46-116); ANION GAP 9 (8-16); ASPARTATE AMINO TRANSFERASE 16 U/L (10-37); BILIRUBIN,TOTAL 0.5 MG/DL (0.1-1.0); BLOOD UREA NITROGEN 61 MG/DL (7-18); BUN/CREATININE RATIO 28.5 (6.6-38.0); CALCIUM 8.2 MG/DL (8.5-10.1); CHLORIDE 108 MMOL/L (99-107); CREATININE 2.14 MG/DL (0.40-0.90); GLUCOSE 146 MG/DL (70-104); POTASSIUM 4.3 MMOL/L (3.5-5.1); SODIUM 147 MMOL/L (135-145); TOTAL CARBON DIOXIDE 30.4 MMOL/L (24-32); TOTAL PROTEIN 7.1 G/DL (6.4-8.2); eGFR 22 ML/MIN
[2019-04-18 07:01] LABS: BASOPHILS % (AUTO) 0.1 % (0-1); EOSINOPHILS % (AUTO) 0 % (0-6); HEMATOCRIT 41.8 % (35.0-45.0); HEMOGLOBIN 13.9 g/dl (12.0-16.0); LYMPHOCYTES # (AUTO) 0.5 X10'3 (1.1-4.8); LYMPHOCYTES % (AUTO) 6.3 % (21-51); MEAN CORPUSCULAR HEMOGLOBIN 28.7 PG (27.0-31.0); MEAN CORPUSCULAR HGB CONC 33.2 g/dL (33.0-36.5); MEAN CORPUSCULAR VOLUME 86.4 FL (78-98); MEAN PLATELET VOLUME 10.7 FL (7.4-10.4); MONOCYTES # (AUTO) 0.2 X10'3 (0-0.9); MONOCYTES % (AUTO) 2.3 % (2-12); NEUTROPHILS # (AUTO) 7.2 X10'3 (1.8-7.7); NEUTROPHILS % (AUTO) 91.3 % (42-75); PLATELET COUNT 106 X10'3 (140-440); RED BLOOD COUNT 4.83 X10'6 (4.20-5.60); RED CELL DISTRIBUTION WIDTH 16.7 % (11.5-14.5); WHITE BLOOD COUNT 7.9 X10'3 (4.5-11.0)
[2019-04-18] MEDS: levoTHYROXINE 100mcg tablet PO SCH (08:00)
[2019-04-18] MEDS: K and/or MAG REPLACEMENT MC SCH (08:00)
[2019-04-18] MEDS: diltiazem CD 120mg capsule (once-daily) PO SCH (08:00)
[2019-04-18] MEDS: amiodarone 100mg tablet PO SCH (08:00)
[2019-04-18] MEDS: famotidine 20mg tablet PO SCH (08:00)
[2019-04-18] MEDS: pregabalin 25mg capsule PO SCH ×2 (08:00→19:58)
[2019-04-18] MEDS: oxybutynin 5mg tablet PO SCH ×2 (08:00→19:58)
--- NOTE | 2019-04-18 09:42 | NUR ---
PAGER ID: [phone] MESSAGE: Judith [phone] Zhane Byrd in [address]- per ST remain NPO, recommends ENT eval. Start pt on fluids? Has been NPO since yesterday a.m. Also unable to take PO meds at this time
[2019-04-18] MEDS: doxycycline inj 100 MG in normal saline 100ml IV soln 100 ML IV SCH (10:21)
[2019-04-18] MEDS: furosemide 40mg/4ml inj IV SCH (10:21)
[2019-04-18] MEDS: methylPREDNISolone sod succ 125mg/2ml vial IV SCH ×3 (10:21→19:39)
--- NOTE | 2019-04-18 15:20 | NUR ---
PRESSURE ULCER EDUCATION: DEFINITION: A pressure ulcer is an area of skin that breaks down when you stay in one position too long. The constant pressure against the skin reduces the blood flow to that area and the affected tissue dies. CAUSES: "Being bedridden or in a wheelchair "Fragile skin "Having a chronic condition, such as diabetes or vascular disease "Inability to move certain parts of your body without assistance "Older age "Incontinence of urine or stool SYMPTOMS: "A reddened area that DOES NOT turn white when pressed on - this can be the beginning of a pressure ulcer "A blister, deep sore or a crater - these can be advanced pressure ulcers FIRST AID: "Relieve the pressure on this area "Keep the area clean and dry "Call your primary doctor if you see any of the above symptoms "DO NOT massage the area "DO NOT use a donut shaped or ring shaped pillow- these actually interfere with the blood flow and cause complications PREVENTION: "Check for pressure ulcers everyday "Change position at least every two hours to relieve pressure "Use items that help relieve pressure- pillows, sheepskin, foam padding, and powders. "Keep skin clean and dry "Eat healthy well balanced meals "Exercise daily IF YOU SEE ANY OF THESE SYMPTOMS WHILE IN THE HOSPITAL - TELL YOUR NURSE IMMEDIATELY. IF YOU SEE ANY OF THESE SYMPTOMS WHILE AT HOME OR HAVE ANY QUESTIONS OR CONCERNS ABOUT PRESSURE ULCERS - CALL YOUR PRIMARY DOCTOR IMMEDIATELY. Addendum: 04/18/19 at 1521 by Tabby Graham RN Amended: Links added.
[2019-04-18] MEDS ORDERED: fentaNYL/PF 50MCG/1 ML 2ML syringe ONE (16:29)
[2019-04-18] MEDS ORDERED: MIDAZolam 5mg/5ml vial ONE (16:29)
[2019-04-18] MEDS ORDERED: LIDOcaine Viscous 15ml cup ONE (16:29)
--- NOTE | 2019-04-18 19:12 | NUR ---
Patient in room ORTHO 4014. I have received report from Judith Alford Rn and had the opportunity to ask questions and assume patient care. Addendum: 04/18/19 at 1913 by Larissa Esparza RN Amended: Links added.
--- NOTE | 2019-04-18 20:35 | NUR ---
daughter Frances called to check in on pt. pt resting without s&S of distress at this time.
[2019-04-18] MEDS: insulin glargine (Lantus) pen - multi-dose SQ SCH (21:00)
--- NOTE | 2019-04-18 22:00 | NUR ---
vss no s&s of distress.
--- NOTE | 2019-04-18 23:18 | NUR ---
pt attempted to void on bedpan without success.
--- NOTE | 2019-04-19 00:41 | NUR ---
pt resting no s&s of distress appears comfortable.
--- NOTE | 2019-04-19 01:59 | NUR ---
resting without changes
--- NOTE | 2019-04-19 03:20 | NUR ---
pt resting positioned to comfort.
[2019-04-19] MEDS: ipratropium 0.5 MG/2.5ML nebule IH SCH ×4 (03:47→20:35)
--- NOTE | 2019-04-19 04:25 | NUR ---
pt awoke stated needed to pee. put on a bedpan was unable to void. bladder scanned for 625cc . assisted with 2 people and gait belt up to bedside commode to void and pt voided 775cc clear yellow urine. got her back to bed and rescanned her noting 75cc left in the bladder.finished this at 0505 Am
[2019-04-19 06:00] VITALS: BP 111/69
[2019-04-19 06:06] LABS: BASOPHILS % (AUTO) 0 % (0-1); EOSINOPHILS % (AUTO) 0 % (0-6); HEMATOCRIT 43.2 % (35.0-45.0); HEMOGLOBIN 14.5 g/dl (12.0-16.0); LYMPHOCYTES # (AUTO) 0.4 X10'3 (1.1-4.8); LYMPHOCYTES % (AUTO) 7.9 % (21-51); MEAN CORPUSCULAR HEMOGLOBIN 28.9 PG (27.0-31.0); MEAN CORPUSCULAR HGB CONC 33.5 g/dL (33.0-36.5); MEAN CORPUSCULAR VOLUME 86.2 FL (78-98); MEAN PLATELET VOLUME 9.9 FL (7.4-10.4); MONOCYTES # (AUTO) 0.2 X10'3 (0-0.9); MONOCYTES % (AUTO) 3.1 % (2-12); NEUTROPHILS # (AUTO) 4.3 X10'3 (1.8-7.7); PLATELET COUNT 92 X10'3 (140-440); RED BLOOD COUNT 5.01 X10'6 (4.20-5.60); RED CELL DISTRIBUTION WIDTH 16.5 % (11.5-14.5); WHITE BLOOD COUNT 4.9 X10'3 (4.5-11.0)
--- NOTE | 2019-04-19 06:21 | NUR ---
Problems reprioritized. Patient report given, questions answered & plan of care reviewed with SANDRO AARON. Addendum: 04/19/19 at 0622 by Larissa Esparza RN Amended: Links added.
[2019-04-19 06:35] LABS: ALANINE AMINOTRANSFERASE 27 U/L (12-78); ALBUMIN 3.5 G/DL (3.4-5.0); ALBUMIN/GLOBULIN RATIO 0.9 (1.1-1.5); ALKALINE PHOSPHATASE 106 IU/L (46-116); ANION GAP 10 (8-16); ASPARTATE AMINO TRANSFERASE 12 U/L (10-37); BILIRUBIN,TOTAL 0.6 MG/DL (0.1-1.0); BLOOD UREA NITROGEN 87 MG/DL (7-18); BUN/CREATININE RATIO 37.2 (6.6-38.0); CALCIUM 8.8 MG/DL (8.5-10.1); CHLORIDE 109 MMOL/L (99-107); CREATININE 2.34 MG/DL (0.40-0.90); GLUCOSE 160 MG/DL (70-104); MAGNESIUM 2.1 MG/DL (1.5-2.4); POTASSIUM 3.9 MMOL/L (3.5-5.1); SODIUM 149 MMOL/L (135-145); TOTAL CARBON DIOXIDE 30.1 MMOL/L (24-32); TOTAL PROTEIN 7.3 G/DL (6.4-8.2); eGFR 20 ML/MIN
--- NOTE | 2019-04-19 07:22 | NUR ---
PAGER ID: [phone] MESSAGE: Judith Dixon9 jaime Elam in 4014b- NPO, painful, no orders for IV pain meds, can we get dilaudid .5 Q4h? Also I would like to discuss concerns with you. See ST note from 04/18 Thanks! Addendum: 04/19/19 at 0820 by Ada Badillo RN returned call and discussed concerns as above.
[2019-04-19] MEDS: furosemide 40mg/4ml inj IV SCH (07:38)
[2019-04-19] MEDS: pantoprazole 40 MG vial IV SCH (07:38)
[2019-04-19] MEDS: CefTRIAXone 2gm/D5W 50ml 50 ML IV SCH (07:38)
[2019-04-19] MEDS: methylPREDNISolone sod succ 125mg/2ml vial IV SCH ×2 (07:38→19:15)
[2019-04-19] MEDS: K and/or MAG REPLACEMENT MC SCH (07:39)
[2019-04-19] MEDS: pregabalin 25mg capsule PO SCH ×2 (08:00→19:15)
[2019-04-19] MEDS: oxybutynin 5mg tablet PO SCH ×2 (08:00→19:15)
[2019-04-19] MEDS: amiodarone 100mg tablet PO SCH (08:00)
[2019-04-19] MEDS: levoTHYROXINE 100mcg tablet PO SCH (08:00)
[2019-04-19] MEDS: diltiazem CD 120mg capsule (once-daily) PO SCH (08:00)
[2019-04-19] MEDS ORDERED: sodium chloride 0.45% 1,000 ML IV SCH (08:05)
--- NOTE | 2019-04-19 08:19 | NUR ---
PAGER ID: [phone] MESSAGE: Judith Dixon9- Zhane Byrd- we have no ENT coverage at this hospital. You must call transfer center [phone] to talk to [facility] vp [facility] E[facility] Dr Holden.
--- NOTE | 2019-04-19 09:57 | NUR ---
PAGER ID: [phone] MESSAGE: Judith [phone] re Zhane Elam again. Sorry, she is complaining of pain in her neck, can I have an IV pain med for her? Thanks
[2019-04-19 10:00] VITALS: BP 112/72
[2019-04-19] MEDS: HYDROmorphone inj. 0.5 MG/0.5 ML DISP.SYRIN IV PRN (11:10)
--- NOTE | 2019-04-19 12:32 | NUR ---
TF consult: Pt failed BSS with ST and failed Barium swallow this morning per RN. Corpak has been ordered but has not been placed yet. 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 Noted that pt with hx trach and PEG in October 2017 however per RN pt does not currently have either. Pt currently with DTI to left heel. Pt with hx CHF with EF 60% per RN and T2DM current A1c 5.7 with BG levels ranging 119-160 on steroids. TF calculated using AdjBW with height of 58" d/t most reported height in previous visits. Recommend continuous TF of Jevity 1.2 with goal rate of 50 mL/hr and fluid flushes per MD given current admit with acute respiratory failure likely secondary to an acute exacerbation of CHF. Serum Na currently elevated and trending upward, previously receiving Lasix which have since been d/c'ed. LBM 04/15, per RN pt to receive suppository. Will continue to follow and monitor tolerance to TF and need for formula change to Glucerna 1.2 pending additional trends in BG levels. 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
[2019-04-19] MEDS ORDERED: bisacodyl 10mg suppository rectal RC PRN (16:55)
[2019-04-19] MEDS ORDERED: INSULIN R 100 UNIT in NS 100ML (1 UNIT/1 ML) BAG IV SCH (17:01)
[2019-04-19 18:00] VITALS: BP 133/70
--- NOTE | 2019-04-19 18:15 | NUR ---
Patient in room ORTHO 4014. I have received report from Judith AARON and had the opportunity to ask questions and assume patient care.
--- NOTE | 2019-04-19 18:55 | NUR ---
Paged Dr. Rivera about placement and use of the corpak. Explained to Dr. Rivera that day shift nurse had a difficult time removing the wire and needed to pull back and advance the corpak to get the wire removed. Dr. Rivera aware and stated to check placement and flush. He said "I am okay with that placement." will follow orders and start tube feeding. will continue to monitor.
[2019-04-19] MEDS: insulin glargine (Lantus) pen - multi-dose SQ SCH (21:00)
[2019-04-19 22:00] VITALS: BP 120/68
[2019-04-20] MEDS: ipratropium 0.5 MG/2.5ML nebule IH SCH ×4 (03:23→19:33)
--- NOTE | 2019-04-20 06:40 | NUR ---
Problems reprioritized. Patient report given, questions answered & plan of care reviewed with Valarie AARON.
[2019-04-20 07:02] LABS: BASOPHILS % (AUTO) 0.1 % (0-1); EOSINOPHILS % (AUTO) 0 % (0-6); HEMATOCRIT 44.2 % (35.0-45.0); HEMOGLOBIN 14.8 g/dl (12.0-16.0); LYMPHOCYTES # (AUTO) 0.5 X10'3 (1.1-4.8); LYMPHOCYTES % (AUTO) 7.9 % (21-51); MEAN CORPUSCULAR HEMOGLOBIN 28.9 PG (27.0-31.0); MEAN CORPUSCULAR HGB CONC 33.4 g/dL (33.0-36.5); MEAN CORPUSCULAR VOLUME 86.4 FL (78-98); MEAN PLATELET VOLUME 10.4 FL (7.4-10.4); MONOCYTES # (AUTO) 0.3 X10'3 (0-0.9); MONOCYTES % (AUTO) 4.7 % (2-12); NEUTROPHILS # (AUTO) 5.7 X10'3 (1.8-7.7); NEUTROPHILS % (AUTO) 87.3 % (42-75); PLATELET COUNT 87 X10'3 (140-440); RED BLOOD COUNT 5.12 X10'6 (4.20-5.60); RED CELL DISTRIBUTION WIDTH 16.7 % (11.5-14.5); WHITE BLOOD COUNT 6.5 X10'3 (4.5-11.0)
[2019-04-20 07:04] VITALS: BP 118/73
[2019-04-20 07:17] LABS: ALANINE AMINOTRANSFERASE 30 U/L (12-78); ALBUMIN 3.3 G/DL (3.4-5.0); ALBUMIN/GLOBULIN RATIO 0.9 (1.1-1.5); ALKALINE PHOSPHATASE 102 IU/L (46-116); ANION GAP 7 (8-16); ASPARTATE AMINO TRANSFERASE 21 U/L (10-37); BILIRUBIN,TOTAL 0.5 MG/DL (0.1-1.0); BLOOD UREA NITROGEN 93 MG/DL (7-18); BUN/CREATININE RATIO 39.4 (6.6-38.0); CALCIUM 8.2 MG/DL (8.5-10.1); CHLORIDE 109 MMOL/L (99-107); CREATININE 2.36 MG/DL (0.40-0.90); GLUCOSE 174 MG/DL (70-104); MAGNESIUM 2.4 MG/DL (1.5-2.4); POTASSIUM 3.7 MMOL/L (3.5-5.1); SODIUM 148 MMOL/L (135-145); TOTAL CARBON DIOXIDE 31.6 MMOL/L (24-32); eGFR 20 ML/MIN
[2019-04-20] MEDS ORDERED: sodium chloride 0.45% 1,000 ML IV SCH (07:50)
[2019-04-20] MEDS: amiodarone 100mg tablet PO SCH ×2 (08:00→08:59)
[2019-04-20] MEDS: levoTHYROXINE 100mcg tablet PO SCH (08:59)
[2019-04-20] MEDS: oxybutynin 5mg tablet PO SCH ×2 (08:59→21:00)
[2019-04-20] MEDS: K and/or MAG REPLACEMENT MC SCH (09:00)
[2019-04-20] MEDS: pregabalin 25mg capsule PO SCH ×2 (09:00→21:00)
[2019-04-20] MEDS: methylPREDNISolone sod succ 125mg/2ml vial IV SCH ×2 (09:00→21:00)
[2019-04-20] MEDS: pantoprazole 40 MG vial IV SCH (09:00)
[2019-04-20] MEDS: CefTRIAXone 2gm/D5W 50ml 50 ML IV SCH (09:00)
[2019-04-20] MEDS: diltiazem CD 120mg capsule (once-daily) PO SCH (09:01)
[2019-04-20] MEDS: albuterol 2.5 MG/3 ML nebule NEB PRN (09:29)
[2019-04-20 10:00] VITALS: BP 125/56
[2019-04-20 18:00] VITALS: BP 126/70
[2019-04-20] MEDS: HYDROmorphone inj. 0.5 MG/0.5 ML DISP.SYRIN IV PRN (19:16)
[2019-04-20] MEDS: LIDOcaine 5% patch TP SCH (19:20)
[2019-04-20] MEDS: lactobacillus rhamnosus 10,000 MMU CELLS/CAPSULE PO SCH (20:00)
[2019-04-20] MEDS: insulin regular, human vial - multi-dose SQ SCH (20:08)
[2019-04-20] MEDS: insulin glargine (Lantus) pen - multi-dose SQ SCH (21:00)
[2019-04-20 22:00] VITALS: BP 106/65
[2019-04-21] MEDS: cefepime 1GM/NS ADD-VANTAGE 100 ML IV SCH ×3 (01:12→15:33)
[2019-04-21] MEDS: insulin regular, human vial - multi-dose SQ SCH ×3 (02:29→20:38)
[2019-04-21] MEDS: ipratropium 0.5 MG/2.5ML nebule IH SCH ×4 (02:33→20:27)
[2019-04-21 05:23] LABS: BASOPHILS % (AUTO) 0.1 % (0-1); EOSINOPHILS % (AUTO) 0 % (0-6); HEMATOCRIT 48.1 % (35.0-45.0); HEMOGLOBIN 16.1 g/dl (12.0-16.0); LYMPHOCYTES # (AUTO) 0.3 X10'3 (1.1-4.8); LYMPHOCYTES % (AUTO) 3.9 % (21-51); MEAN CORPUSCULAR HGB CONC 33.5 g/dL (33.0-36.5); MEAN CORPUSCULAR VOLUME 86.8 FL (78-98); MEAN PLATELET VOLUME 10.8 FL (7.4-10.4); MONOCYTES # (AUTO) 0.2 X10'3 (0-0.9); MONOCYTES % (AUTO) 2.6 % (2-12); NEUTROPHILS # (AUTO) 7.6 X10'3 (1.8-7.7); NEUTROPHILS % (AUTO) 93.4 % (42-75); PLATELET COUNT 94 X10'3 (140-440); RED BLOOD COUNT 5.55 X10'6 (4.20-5.60); RED CELL DISTRIBUTION WIDTH 17.1 % (11.5-14.5); WHITE BLOOD COUNT 8.2 X10'3 (4.5-11.0)
[2019-04-21 05:38] LABS: ALANINE AMINOTRANSFERASE 45 U/L (12-78); ALBUMIN 3.4 G/DL (3.4-5.0); ALBUMIN/GLOBULIN RATIO 0.9 (1.1-1.5); ALKALINE PHOSPHATASE 144 IU/L (46-116); ANION GAP 9 (8-16); ASPARTATE AMINO TRANSFERASE 25 U/L (10-37); BILIRUBIN,TOTAL 0.5 MG/DL (0.1-1.0); BLOOD UREA NITROGEN 98 MG/DL (7-18); BUN/CREATININE RATIO 44.7 (6.6-38.0); CALCIUM 8.4 MG/DL (8.5-10.1); CHLORIDE 113 MMOL/L (99-107); CREATININE 2.19 MG/DL (0.40-0.90); GLUCOSE 232 MG/DL (70-104); MAGNESIUM 2.4 MG/DL (1.5-2.4); PREALBUMIN 30.2 MG/DL (19-36); SODIUM 153 MMOL/L (135-145); TOTAL CARBON DIOXIDE 31.5 MMOL/L (24-32); TOTAL PROTEIN 7.3 G/DL (6.4-8.2); eGFR 22 ML/MIN
[2019-04-21 05:55] LABS: LARGE PLATELETS FEW; PLATELET ESTIMATE DECREASED
[2019-04-21 06:54] VITALS: BP 140/81
[2019-04-21] MEDS: K and/or MAG REPLACEMENT MC SCH (08:00)
[2019-04-21] MEDS: diltiazem CD 120mg capsule (once-daily) PO SCH (08:00)
[2019-04-21] MEDS: pantoprazole 40 MG vial IV SCH (08:04)
[2019-04-21] MEDS: levoTHYROXINE 100mcg tablet PO SCH (08:04)
[2019-04-21] MEDS: pregabalin 25mg capsule PO SCH ×2 (08:04→20:29)
[2019-04-21] MEDS: amiodarone 100mg tablet PO SCH (08:04)
[2019-04-21] MEDS: oxybutynin 5mg tablet PO SCH ×2 (08:04→20:29)
[2019-04-21] MEDS: lactobacillus rhamnosus 10,000 MMU CELLS/CAPSULE PO SCH ×2 (08:04→20:29)
[2019-04-21] MEDS: methylPREDNISolone sod succ 125mg/2ml vial IV SCH ×2 (08:04→20:29)
[2019-04-21] MEDS: LIDOcaine 5% patch TP SCH (08:09)
[2019-04-21 10:09] VITALS: BP 139/94
[2019-04-21] MEDS: HYDROmorphone inj. 0.5 MG/0.5 ML DISP.SYRIN IV PRN (11:18)
[2019-04-21] MEDS: dextrose 5%-water 1,000 ML IV SCH ×2 (11:24→17:42)
--- NOTE | 2019-04-21 12:13 | NUR ---
reassessment: Pt tolerating TF at goal. Na increased to [address] d/w RN for increase in water flush to 200ml Q4 per MD approval. Per RN; MD adding D5 for elevated Na. Pt already receiving steroids w/ elevated GLU 232 prior to D5 and water flushes would be more effective since receiving minimal h2o prior. First PALB 30.2 WNL. Will continue to monitor. 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
[2019-04-21 18:00] VITALS: BP 141/87
[2019-04-21] MEDS: nystatin 500,000 unit/5ML UD oral suspension PO SCH (20:30)
[2019-04-21] MEDS: insulin glargine (Lantus) pen - multi-dose SQ SCH (21:00)
[2019-04-21 22:00] VITALS: BP 107/62
[2019-04-22] VITALS (9 sets, daily range): BP systolic 112–156; BP diastolic 53–81
[2019-04-22] MEDS: insulin regular, human vial - multi-dose SQ SCH ×2 (02:35→09:37)
[2019-04-22] MEDS: ipratropium 0.5 MG/2.5ML nebule IH SCH ×4 (03:04→20:42)
[2019-04-22] MEDS: dextrose 5%-water 1,000 ML IV SCH ×2 (04:50→17:02)
[2019-04-22] MEDS: K and/or MAG REPLACEMENT MC SCH (08:00)
[2019-04-22] MEDS: cefepime 1GM/NS ADD-VANTAGE 100 ML IV SCH ×3 (09:14→17:02)
[2019-04-22] MEDS: pantoprazole 40 MG vial IV SCH (09:14)
[2019-04-22] MEDS: methylPREDNISolone sod succ 125mg/2ml vial IV SCH ×2 (09:15→20:24)
[2019-04-22] MEDS: diltiazem CD 120mg capsule (once-daily) PO SCH (09:40)
[2019-04-22] MEDS: oxybutynin 5mg tablet PO SCH ×2 (09:40→20:00)
[2019-04-22] MEDS: lactobacillus rhamnosus 10,000 MMU CELLS/CAPSULE PO SCH ×2 (09:40→20:00)
[2019-04-22] MEDS: amiodarone 100mg tablet PO SCH (09:40)
[2019-04-22] MEDS: pregabalin 25mg capsule PO SCH ×2 (09:41→20:00)
[2019-04-22] MEDS: nystatin 500,000 unit/5ML UD oral suspension PO SCH ×3 (09:41→20:24)
[2019-04-22] MEDS: levoTHYROXINE 100mcg tablet PO SCH (09:41)
[2019-04-22] MEDS: LIDOcaine 5% patch TP SCH (09:43)
[2019-04-22 09:56] LABS: BASOPHILS % (AUTO) 0.3 % (0-1); EOSINOPHILS % (AUTO) 0 % (0-6); HEMOGLOBIN 16.3 g/dl (12.0-16.0); LYMPHOCYTES # (AUTO) 0.5 X10'3 (1.1-4.8); LYMPHOCYTES % (AUTO) 4.2 % (21-51); MEAN CORPUSCULAR HEMOGLOBIN 27.6 PG (27.0-31.0); MEAN CORPUSCULAR HGB CONC 32.1 g/dL (33.0-36.5); MEAN CORPUSCULAR VOLUME 86.2 FL (78-98); MEAN PLATELET VOLUME 9.8 FL (7.4-10.4); MONOCYTES # (AUTO) 0.6 X10'3 (0-0.9); MONOCYTES % (AUTO) 5.4 % (2-12); NEUTROPHILS % (AUTO) 90.1 % (42-75); PLATELET COUNT 84 X10'3 (140-440); RED BLOOD COUNT 5.91 X10'6 (4.20-5.60); RED CELL DISTRIBUTION WIDTH 16.5 % (11.5-14.5); WHITE BLOOD COUNT 11.1 X10'3 (4.5-11.0)
[2019-04-22 10:07] LABS: ALANINE AMINOTRANSFERASE 54 U/L (12-78); ALBUMIN/GLOBULIN RATIO 0.8 (1.1-1.5); ALKALINE PHOSPHATASE 139 IU/L (46-116); ANION GAP 6 (8-16); ASPARTATE AMINO TRANSFERASE 28 U/L (10-37); BILIRUBIN,TOTAL 0.5 MG/DL (0.1-1.0); BLOOD UREA NITROGEN 84 MG/DL (7-18); BUN/CREATININE RATIO 47.5 (6.6-38.0); CALCIUM 8.3 MG/DL (8.5-10.1); CHLORIDE 112 MMOL/L (99-107); CREATININE 1.77 MG/DL (0.40-0.90); GLUCOSE 182 MG/DL (70-104); POTASSIUM 3.7 MMOL/L (3.5-5.1); SODIUM 149 MMOL/L (135-145); TOTAL CARBON DIOXIDE 31.5 MMOL/L (24-32); TOTAL PROTEIN 6.8 G/DL (6.4-8.2); eGFR 28 ML/MIN
[2019-04-22] MEDS ORDERED: MIDAZolam 5mg/5ml vial ONE (14:24)
[2019-04-22] MEDS ORDERED: LIDOcaine Viscous 15ml cup ONE (14:24)
[2019-04-22] MEDS ORDERED: fentaNYL/PF 50MCG/1 ML 2ML syringe ONE (14:24)
--- NOTE | 2019-04-22 18:35 | NUR ---
Received report from AGNIESZKA Juarez. Patient is awake and alert on room air, in no apparent distress. Call light and items of frequent use within reach. Will continue to monitor.
[2019-04-22] MEDS: insulin glargine (Lantus) pen - multi-dose SQ SCH (20:29)
[2019-04-23] MEDS: cefepime 1GM/NS ADD-VANTAGE 100 ML IV SCH ×2 (01:09→08:10)
[2019-04-23] MEDS: ipratropium 0.5 MG/2.5ML nebule IH SCH ×4 (02:32→20:26)
[2019-04-23] MEDS: dextrose 5%-water 1,000 ML IV SCH ×2 (02:35→12:53)
[2019-04-23] MEDS: insulin regular, human vial - multi-dose SQ SCH ×3 (02:44→20:07)
[2019-04-23 06:00] VITALS: BP 106/67
[2019-04-23 06:06] LABS: BASOPHILS % (AUTO) 0 % (0-1); LYMPHOCYTES # (AUTO) 0.5 X10'3 (1.1-4.8); MONOCYTES # (AUTO) 0.3 X10'3 (0-0.9)
[2019-04-23 06:07] LABS: EOSINOPHILS % (AUTO) 0.1 % (0-6); HEMATOCRIT 45.5 % (35.0-45.0); LYMPHOCYTES % (AUTO) 4.1 % (21-51); MEAN CORPUSCULAR HEMOGLOBIN 28.2 PG (27.0-31.0); MEAN CORPUSCULAR VOLUME 85.5 FL (78-98); MEAN PLATELET VOLUME 10.2 FL (7.4-10.4); MONOCYTES % (AUTO) 2.5 % (2-12); NEUTROPHILS # (AUTO) 12.1 X10'3 (1.8-7.7); NEUTROPHILS % (AUTO) 93.3 % (42-75); PLATELET COUNT 58 X10'3 (140-440); RED BLOOD COUNT 5.32 X10'6 (4.20-5.60); RED CELL DISTRIBUTION WIDTH 16.3 % (11.5-14.5)
--- NOTE | 2019-04-23 06:11 | NUR ---
received report from paradise florian
[2019-04-23 06:26] LABS: ALANINE AMINOTRANSFERASE 39 U/L (12-78); ALBUMIN 2.6 G/DL (3.4-5.0); ALBUMIN/GLOBULIN RATIO 0.8 (1.1-1.5); ALKALINE PHOSPHATASE 87 IU/L (46-116); ANION GAP 5 (8-16); ASPARTATE AMINO TRANSFERASE 17 U/L (10-37); BILIRUBIN,TOTAL 0.7 MG/DL (0.1-1.0); BLOOD UREA NITROGEN 73 MG/DL (7-18); BUN/CREATININE RATIO 42.7 (6.6-38.0); CALCIUM 8.5 MG/DL (8.5-10.1); CHLORIDE 109 MMOL/L (99-107); CREATININE 1.71 MG/DL (0.40-0.90); GLUCOSE 220 MG/DL (70-104); MAGNESIUM 2.3 MG/DL (1.5-2.4); POTASSIUM 4.2 MMOL/L (3.5-5.1); SODIUM 144 MMOL/L (135-145); TOTAL CARBON DIOXIDE 29.8 MMOL/L (24-32); eGFR 29 ML/MIN
[2019-04-23] MEDS: lactobacillus rhamnosus 10,000 MMU CELLS/CAPSULE PO SCH (07:06)
[2019-04-23] MEDS: amiodarone 100mg tablet PO SCH (07:06)
[2019-04-23] MEDS: pantoprazole 40mg Tablet.DR PO SCH (07:06)
[2019-04-23] MEDS: levoTHYROXINE 100mcg tablet PO SCH (07:06)
[2019-04-23] MEDS: oxybutynin 5mg tablet PO SCH ×2 (07:06→19:43)
[2019-04-23] MEDS: diltiazem CD 120mg capsule (once-daily) PO SCH (07:06)
[2019-04-23] MEDS: pregabalin 25mg capsule PO SCH ×2 (07:06→19:43)
[2019-04-23] MEDS: K and/or MAG REPLACEMENT MC SCH (07:07)
[2019-04-23] MEDS: methylPREDNISolone sod succ 125mg/2ml vial IV SCH (07:28)
--- NOTE | 2019-04-23 08:00 | NUR ---
UNABLE TO OBTAIN PTS DAILY WT AT THIS TIME
[2019-04-23] MEDS: nystatin 500,000 unit/5ML UD oral suspension PO SCH ×3 (08:10→19:42)
[2019-04-23] MEDS: LIDOcaine 5% patch TP SCH (08:11)
--- NOTE | 2019-04-23 08:32 | NUR ---
Correction on O2 flow rate to 1.0 liters.
--- NOTE | 2019-04-23 09:55 | NUR ---
TF Consult: Pt s/p PEG placement; will continue prior TF regimen since meeting needs w/ last PALB WNL. Moderate BM charted 04/22. GLU elevated but also receiving DEX and solumedrol w/ A1C 5.7. Will monitor for TF tolerance via new PEG. Recommendations: 1) continuous PEG feeds using Jevity 1.2 at goal of 50 mL/hr to provide: 1200 mL total volume/day, 1440kcal, 67 g protein, and 968 mL water 2) Water flushes 200ml Q4 3) Prealbumin q /; daily weight 4) Routine bowel care Addendum: 04/23/19 at [address] Amended: Links added. Addendum: 04/23/19 at [address] TF Consult: Pt s/p PEG placement; will continue prior TF regimen since meeting needs w/ last PALB WNL. Moderate BM charted 04/22. GLU elevated but also receiving DEX and solumedrol w/ A1C 5.7. Will monitor for TF tolerance via new PEG. Recommendations: 1) continuous PEG feeds using Jevity 1.2 at goal of 50 mL/hr to provide: 1200 mL total volume/day, 1440kcal, 67 g protein, and 968 mL water. Initiate at 30m/hr and advance 20ml Q8 to goal as tolerated. 2) Water flushes 200ml Q4 3) Prealbumin q M/TH; daily weight 4) Routine bowel care
[2019-04-23 10:00] VITALS: BP 123/71
[2019-04-23] MEDS: ondansetron/PF 4mg/2ml inj IV PRN (10:42)
[2019-04-23] MEDS: HYDROmorphone 1 mg/ml syringe IV PRN ×2 (10:43→14:34)
[2019-04-23] MEDS ORDERED: acetaminophen 325mg tablet GT PRN ×2 (11:44→11:45)
[2019-04-23] MEDS ORDERED: dextrose ORAL solution 15 GM/59 ML bottle GT PRN ×2 (11:48→11:52)
--- NOTE | 2019-04-23 11:53 | NUR ---
Student documentation: I have reviewed all interventions, assessments performed and documented by Lara Arias [place]. Student Medication Administration: For this medication-pass time frame, all medication were reviewed, dispensed, administered and documented per hospital policy by Lara Arias [place].
--- NOTE | 2019-04-23 14:00 | NUR ---
pt bg is 113 and has received less than 3 hours of tube feeding at 20mls/hr, pt a1c is 5.7, therefore pt not receiving insulin at this time continue to monitor bg
[2019-04-23 18:00] VITALS: BP 100/65
--- NOTE | 2019-04-23 18:25 | NUR ---
GAVE REPORT TO AGNIESZKA PALACIOS
[2019-04-23] MEDS: lactobacillus rhamnosus 10,000 MMU CELLS/CAPSULE GT SCH (19:43)
[2019-04-23] MEDS: methylPREDNISolone sod succ/PF 40mg inj. IV SCH (19:44)
[2019-04-23] MEDS: ATROVENT 0.03% BOTHNARES SCH (20:00)
[2019-04-23] MEDS: ipratropium 0.03% 30ML nasal spray NS SCH (20:00)
[2019-04-23] MEDS: insulin glargine (Lantus) pen - multi-dose SQ SCH (20:10)
--- NOTE | 2019-04-23 20:15 | NUR ---
found pt glucose 166, just order to D/C D10 IVF at 100ml/hr. decreased solumedrol by 20mg and increased tube feeding to 40ml/hr. noted that patient is not diabetic but due to medications glucose elevated. no lantus has been given since pt started on procol and pt increased to level 6. discussed with devulcanizer charger Beth and decided to restart protocol at level 2 and start with lantus 6 units per protocol (decreased due to pt's low gfr).
[2019-04-23 22:00] VITALS: BP 101/59
[2019-04-24] MEDS: insulin regular, human vial - multi-dose SQ SCH ×4 (02:07→19:56)
[2019-04-24] MEDS: ipratropium 0.5 MG/2.5ML nebule IH SCH ×4 (02:57→21:10)
[2019-04-24 06:26] LABS: BASOPHILS % (AUTO) 0.1 % (0-1); EOSINOPHILS % (AUTO) 0.1 % (0-6); HEMOGLOBIN 13.6 g/dl (12.0-16.0); LYMPHOCYTES # (AUTO) 0.3 X10'3 (1.1-4.8); MEAN CORPUSCULAR HEMOGLOBIN 28.2 PG (27.0-31.0); MEAN CORPUSCULAR VOLUME 85.3 FL (78-98); MONOCYTES # (AUTO) 0.3 X10'3 (0-0.9); MONOCYTES % (AUTO) 2.8 % (2-12); NEUTROPHILS # (AUTO) 10.3 X10'3 (1.8-7.7); RED BLOOD COUNT 4.81 X10'6 (4.20-5.60); RED CELL DISTRIBUTION WIDTH 16.1 % (11.5-14.5)
[2019-04-24 06:28] VITALS: BP 93/52
[2019-04-24 06:28] LABS: ALANINE AMINOTRANSFERASE 38 U/L (12-78); ALBUMIN 2.5 G/DL (3.4-5.0); ALBUMIN/GLOBULIN RATIO 0.8 (1.1-1.5); ALKALINE PHOSPHATASE 84 IU/L (46-116); ANION GAP 6 (8-16); ASPARTATE AMINO TRANSFERASE 19 U/L (10-37); BILIRUBIN,TOTAL 0.7 MG/DL (0.1-1.0); BLOOD UREA NITROGEN 71 MG/DL (7-18); BUN/CREATININE RATIO 41.8 (6.6-38.0); CALCIUM 7.9 MG/DL (8.5-10.1); CHLORIDE 104 MMOL/L (99-107); GLUCOSE 169 MG/DL (70-104); POTASSIUM 4.6 MMOL/L (3.5-5.1); PREALBUMIN 22.2 MG/DL (19-36); SODIUM 139 MMOL/L (135-145); TOTAL CARBON DIOXIDE 29.5 MMOL/L (24-32); TOTAL PROTEIN 5.7 G/DL (6.4-8.2); eGFR 29 ML/MIN
[2019-04-24 06:34] LABS: PLATELET COUNT 50 X10'3 (140-440)
--- NOTE | 2019-04-24 06:35 | NUR ---
Patient in room ORTHO 4014. I have received report from Alicia and had the opportunity to ask questions and assume patient care.
--- NOTE | 2019-04-24 07:01 | NUR ---
Critical platelets of 50, paged
--- NOTE | 2019-04-24 07:08 | NUR ---
PAGER ID: [phone] MESSAGE: Joe Rivera, RE: Ms. Elam in [id number], fyi, critical platelets of 50, thank you Karen #[phone]
[2019-04-24] MEDS: K and/or MAG REPLACEMENT MC SCH (08:00)
[2019-04-24] MEDS: ATROVENT 0.03% BOTHNARES SCH ×2 (08:00→20:00)
[2019-04-24] MEDS: ipratropium 0.03% 30ML nasal spray NS SCH ×2 (08:00→20:00)
[2019-04-24 08:27] LABS: LARGE PLATELETS FEW; PLATELET ESTIMATE DECREASED
[2019-04-24] MEDS: pantoprazole 40mg Tablet.DR PO SCH (09:34)
[2019-04-24] MEDS: oxybutynin 5mg tablet PO SCH ×2 (09:35→19:34)
[2019-04-24] MEDS: amiodarone 100mg tablet GT SCH (09:35)
[2019-04-24] MEDS: lactobacillus rhamnosus 10,000 MMU CELLS/CAPSULE GT SCH ×2 (09:35→19:34)
[2019-04-24] MEDS: levoTHYROXINE 100mcg tablet PO SCH (09:36)
[2019-04-24] MEDS: pregabalin 25mg capsule PO SCH ×2 (09:36→19:34)
[2019-04-24] MEDS: LIDOcaine 5% patch TP SCH (09:37)
[2019-04-24] MEDS: methylPREDNISolone sod succ/PF 40mg inj. IV SCH ×2 (09:38→19:34)
[2019-04-24] MEDS: nystatin 500,000 unit/5ML UD oral suspension PO SCH ×2 (10:00→13:15)
[2019-04-24 10:13] VITALS: BP 119/58
--- NOTE | 2019-04-24 11:35 | NUR ---
F/u: Pt tolerating PEG feeds at goal. LBM 04/20 per RN; all bowel care PRN and not received since 04/19. RN agrees to give oral colace via PEG today. Pt will need bolus recs for once at home; recs below. Recommendations: 1) continuous PEG feeds using Jevity 1.2 at goal of 50 mL/hr to provide: 1200 mL total volume/day, 1440kcal, 67 g protein, and 968 mL water. Initiate at 30m/hr and advance 20ml Q8 to goal as tolerated. 2) Water flushes 200ml Q4 3) Prealbumin q /; daily weight 4) Routine bowel nursing home BOLUS RECS: 1. Home bolus feeds TID via PEG using Glucerna 1.5 or equivalent at 325ml bolus goal. Initiate at 120ml and advance 60ml per bolus feed to goal as tolerated. Water flush 60ml before and after feeds. 2. additional 900ml free water daily 3. outpatient RD to titrate PEG feeds given hydration, kcal, and protein needs Addendum: 04/24/19 at [address] Amended: Links added.
[2019-04-24] MEDS: docusate sodium 100mg/10ml UD cup PO PRN (11:51)
--- NOTE | 2019-04-24 12:42 | NUR ---
PAGER ID: [phone] MESSAGE: Joe Rivera, RE: Ms. Elam in [id number], per pharmacy, the Cardizem 30 mg cannot be crushed, please advise thank you Karen
--- NOTE | 2019-04-24 12:46 | NUR ---
Call from AGNIESZKA Pineda, relaying message from pharmacy - okay to crush cardizem 30 mg tablets but flush very well
[2019-04-24] MEDS: diltiazem 30mg tablet PO SCH ×2 (14:39→19:35)
--- NOTE | 2019-04-24 14:55 | NUR ---
TF Consult: MD requests change to bolus feeds since tolerating continuous; New bolus recs below for needs. Will monitor for bolus tolerance. F/u: Pt tolerating PEG feeds at goal. LBM 04/20 per RN; all bowel care PRN and not received since 04/19. RN agrees to give oral colace via PEG today. Pt will need bolus recs for once at home; recs below. Recommendations: 1) bolus PEG feeds QID at 8AM, 12PM, 4PM, and 8PM using Jevity 1.2 at 300ml bolus. Initiate at 120ml bolus and advance 90ml per bolus to goal as tolerated. To provide 1200ml fluid, 1440kcals, 972ml free water, and 67g protein. Water flush 60ml before and after feeds. 2) additional water flushes 150ml Q6 3) Prealbumin q /; daily weight 4) Routine bowel senior living BOLUS RECS: 1. Home bolus feeds TID via PEG using Glucerna 1.5 or equivalent at 325ml bolus goal. Initiate at 120ml and advance 60ml per bolus feed to goal as tolerated. Water flush 60ml before and after feeds. 2. additional 900ml free water daily 3. outpatient RD to titrate PEG feeds given hydration, kcal, and protein needs Addendum: 04/24/19 at [address] Amended: Links added.
[2019-04-24] MEDS ORDERED: mag hydrox/Alum hydrox/simeth 30ml oral suspension GT PRN (15:41)
[2019-04-24 17:00] VITALS: BP 112/62
--- NOTE | 2019-04-24 18:29 | NUR ---
Problems reprioritized. Patient report given, questions answered & plan of care reviewed with Marjorie.
[2019-04-24] MEDS: nystatin 500,000 unit/5ML UD oral suspension GT SCH (19:36)
[2019-04-24 19:45] VITALS: BP 109/58
[2019-04-24] MEDS: insulin glargine (Lantus) pen - multi-dose SQ SCH (20:00)
[2019-04-24 21:00] VITALS: BP 110/58
--- NOTE | 2019-04-25 00:11 | NUR ---
Stopped tube feeding, will start 120ml bolus feeding at 0200.
[2019-04-25] MEDS: diltiazem 30mg tablet PO SCH ×3 (01:55→21:00)
[2019-04-25 02:00] VITALS: BP 116/61
[2019-04-25] MEDS: ipratropium 0.5 MG/2.5ML nebule IH SCH ×4 (03:35→20:29)
[2019-04-25 05:45] VITALS: BP 110/56
--- NOTE | 2019-04-25 05:51 | NUR ---
tele reported HR in 40's. repositioned pt and took VS. see chart. pt wakes with stimulation - just fell asleep for the first time, will continue to monitor.
[2019-04-25 06:00] VITALS: BP 112/56
[2019-04-25 06:30] LABS: BASOPHILS % (AUTO) 0.1 % (0-1); EOSINOPHILS % (AUTO) 0 % (0-6); HEMATOCRIT 41.1 % (35.0-45.0); HEMOGLOBIN 13.9 g/dl (12.0-16.0); LYMPHOCYTES # (AUTO) 0.4 X10'3 (1.1-4.8); LYMPHOCYTES % (AUTO) 3.4 % (21-51); MEAN CORPUSCULAR HEMOGLOBIN 28.9 PG (27.0-31.0); MEAN CORPUSCULAR HGB CONC 33.9 g/dL (33.0-36.5); MEAN CORPUSCULAR VOLUME 85.3 FL (78-98); MEAN PLATELET VOLUME 11.6 FL (7.4-10.4); MONOCYTES # (AUTO) 0.3 X10'3 (0-0.9); MONOCYTES % (AUTO) 2.5 % (2-12); NEUTROPHILS # (AUTO) 9.9 X10'3 (1.8-7.7); PLATELET COUNT 52 X10'3 (140-440); RED BLOOD COUNT 4.82 X10'6 (4.20-5.60); RED CELL DISTRIBUTION WIDTH 16.3 % (11.5-14.5); WHITE BLOOD COUNT 10.6 X10'3 (4.5-11.0)
--- NOTE | 2019-04-25 06:36 | NUR ---
Patient in room ORTHO 4014. I have received report from Alli Love and Angie LOVE and had the opportunity to ask questions and assume patient care.
[2019-04-25 06:43] LABS: ALANINE AMINOTRANSFERASE 34 U/L (12-78); ALBUMIN 2.3 G/DL (3.4-5.0); ALBUMIN/GLOBULIN RATIO 0.7 (1.1-1.5); ALKALINE PHOSPHATASE 103 IU/L (46-116); ANION GAP 4 (8-16); ASPARTATE AMINO TRANSFERASE 18 U/L (10-37); BILIRUBIN,TOTAL 0.5 MG/DL (0.1-1.0); BLOOD UREA NITROGEN 68 MG/DL (7-18); BUN/CREATININE RATIO 50.4 (6.6-38.0); CHLORIDE 105 MMOL/L (99-107); CREATININE 1.35 MG/DL (0.40-0.90); GLUCOSE 131 MG/DL (70-104); POTASSIUM 4.9 MMOL/L (3.5-5.1); SODIUM 140 MMOL/L (135-145); TOTAL CARBON DIOXIDE 30.9 MMOL/L (24-32); TOTAL PROTEIN 5.5 G/DL (6.4-8.2); eGFR 38 ML/MIN
[2019-04-25] MEDS: K and/or MAG REPLACEMENT MC SCH (08:00)
[2019-04-25] MEDS: ATROVENT 0.03% BOTHNARES SCH ×2 (08:00→21:00)
[2019-04-25] MEDS: ipratropium 0.03% 30ML nasal spray NS SCH ×2 (08:00→21:00)
[2019-04-25] MEDS: nystatin 500,000 unit/5ML UD oral suspension GT SCH ×3 (08:44→21:27)
[2019-04-25] MEDS: lactobacillus rhamnosus 10,000 MMU CELLS/CAPSULE GT SCH ×2 (08:44→21:28)
[2019-04-25] MEDS: levoTHYROXINE 100mcg tablet GT SCH (08:44)
[2019-04-25] MEDS ORDERED: pantoprazole 40 MG vial IV ONE (08:45)
[2019-04-25] MEDS: oxybutynin 5mg tablet PO SCH ×2 (08:45→21:27)
[2019-04-25] MEDS: methylPREDNISolone sod succ/PF 40mg inj. IV SCH ×2 (08:45→21:27)
[2019-04-25] MEDS: pregabalin 25mg capsule PO SCH ×2 (08:45→21:26)
[2019-04-25] MEDS: LIDOcaine 5% patch TP SCH (08:46)
[2019-04-25] MEDS: amiodarone 100mg tablet GT SCH (08:47)
[2019-04-25 08:52] LABS: LARGE PLATELETS FEW; PLATELET ESTIMATE DECREASED
[2019-04-25] MEDS: insulin regular, human vial - multi-dose SQ SCH ×4 (09:38→22:37)
[2019-04-25 10:00] VITALS: BP 121/60
--- NOTE | 2019-04-25 16:59 | NUR ---
call daughter Frances, gave update on patient. daughter said she will come in tonight and have education on peg tube feeding.
--- NOTE | 2019-04-25 18:09 | NUR ---
I AGREE WITH MY PRECEPTEE MORRO AARON'S CHARTING.
--- NOTE | 2019-04-25 18:20 | NUR ---
Patient in room ORTHO 4014. I have received report from AGNIESZKA Mohan and had the opportunity to ask questions and assume patient care.
--- NOTE | 2019-04-25 18:22 | NUR ---
Problems reprioritized. Patient report given, questions answered & plan of care reviewed with Nelly AARON.
[2019-04-25 22:00] VITALS: BP 98/57
[2019-04-25] MEDS: insulin glargine (Lantus) pen - multi-dose SQ SCH (22:31)
[2019-04-26] VITALS (7 sets, daily range): BP systolic 93–116; BP diastolic 54–67
[2019-04-26] MEDS: diltiazem 30mg tablet PO SCH (02:46)
[2019-04-26] MEDS: ipratropium 0.5 MG/2.5ML nebule IH SCH ×4 (02:59→20:56)
--- NOTE | 2019-04-26 06:24 | NUR ---
Problems reprioritized. Patient report given, questions answered & plan of care reviewed with AGNIESZKA Villegas.
--- NOTE | 2019-04-26 06:30 | NUR ---
I have received patient report from Nelly Wagner RN
[2019-04-26 06:51] LABS: ALANINE AMINOTRANSFERASE 32 U/L (12-78); ALBUMIN 2.5 G/DL (3.4-5.0); ALBUMIN/GLOBULIN RATIO 0.8 (1.1-1.5); ALKALINE PHOSPHATASE 115 IU/L (46-116); ANION GAP 7 (8-16); ASPARTATE AMINO TRANSFERASE 12 U/L (10-37); BILIRUBIN,TOTAL 0.5 MG/DL (0.1-1.0); BLOOD UREA NITROGEN 66 MG/DL (7-18); BUN/CREATININE RATIO 52.4 (6.6-38.0); CHLORIDE 103 MMOL/L (99-107); CREATININE 1.26 MG/DL (0.40-0.90); GLUCOSE 54 MG/DL (70-104); POTASSIUM 4.5 MMOL/L (3.5-5.1); SODIUM 138 MMOL/L (135-145); TOTAL CARBON DIOXIDE 27.9 MMOL/L (24-32); TOTAL PROTEIN 5.8 G/DL (6.4-8.2); eGFR 41 ML/MIN
[2019-04-26 06:56] LABS: BASOPHILS % (AUTO) 0.2 % (0-1); EOSINOPHILS % (AUTO) 0 % (0-6); HEMATOCRIT 44.4 % (35.0-45.0); HEMOGLOBIN 14.8 g/dl (12.0-16.0); LYMPHOCYTES # (AUTO) 0.6 X10'3 (1.1-4.8); LYMPHOCYTES % (AUTO) 4.3 % (21-51); MEAN CORPUSCULAR HEMOGLOBIN 28.3 PG (27.0-31.0); MEAN CORPUSCULAR HGB CONC 33.4 g/dL (33.0-36.5); MEAN PLATELET VOLUME 11.1 FL (7.4-10.4); MONOCYTES # (AUTO) 0.7 X10'3 (0-0.9); MONOCYTES % (AUTO) 4.6 % (2-12); NEUTROPHILS # (AUTO) 13.6 X10'3 (1.8-7.7); NEUTROPHILS % (AUTO) 90.9 % (42-75); PLATELET COUNT 64 X10'3 (140-440); RED BLOOD COUNT 5.23 X10'6 (4.20-5.60); RED CELL DISTRIBUTION WIDTH 15.9 % (11.5-14.5)
[2019-04-26 07:38] LABS: ANISOCYTOSIS 1+; LARGE PLATELETS FEW; MICROCYTOSIS 1+; PLATELET ESTIMATE DECREASED
[2019-04-26] MEDS: ATROVENT 0.03% BOTHNARES SCH ×2 (08:00→20:00)
[2019-04-26] MEDS: oxybutynin 5mg tablet PO SCH ×2 (08:00→21:20)
[2019-04-26] MEDS: K and/or MAG REPLACEMENT MC SCH (08:00)
[2019-04-26] MEDS: ipratropium 0.03% 30ML nasal spray NS SCH ×2 (08:00→20:00)
[2019-04-26] MEDS: nystatin 500,000 unit/5ML UD oral suspension GT SCH ×3 (09:02→21:21)
[2019-04-26] MEDS: lactobacillus rhamnosus 10,000 MMU CELLS/CAPSULE GT SCH ×2 (09:02→21:19)
[2019-04-26] MEDS: amiodarone 100mg tablet GT SCH (09:02)
[2019-04-26] MEDS: levoTHYROXINE 100mcg tablet GT SCH (09:02)
[2019-04-26] MEDS: pantoprazole 40 MG vial IV SCH (09:03)
[2019-04-26] MEDS: pregabalin 25mg capsule PO SCH ×2 (09:03→21:19)
[2019-04-26] MEDS: LIDOcaine 5% patch TP SCH (09:26)
--- NOTE | 2019-04-26 17:44 | NUR ---
Dr Rivera Dc'd hyperglycemia protocol because patient a1c is normal, and said he was putting her on prednisone instead of Solumedrol.
--- NOTE | 2019-04-26 18:27 | NUR ---
Patient report given to Tracey Solis and Marine miller
--- NOTE | 2019-04-26 19:47 | NUR ---
Called Dr Rivera to verify amount of free H2O ordered. Right now it is 60mL before and after each bolus. (480ml) and 150ml free water Q 6 hours. (600mL) for total of 1080mL plus Jevity TF. stated to stop the 60 before and after and just give the 150 Q 6.
[2019-04-27] MEDS: docusate sodium 100mg/10ml UD cup PO PRN (02:09)
[2019-04-27] MEDS: ipratropium 0.5 MG/2.5ML nebule IH SCH ×3 (03:24→13:57)
--- NOTE | 2019-04-27 03:41 | NUR ---
reviewed and agree with SRN assessment findings.
[2019-04-27 06:00] VITALS: BP 111/58
--- NOTE | 2019-04-27 06:41 | NUR ---
Problems reprioritized. Patient report given, questions answered & plan of care reviewed with AGNIESZKA Juarez.
[2019-04-27] MEDS: ATROVENT 0.03% BOTHNARES SCH (08:00)
[2019-04-27] MEDS: pantoprazole 40 MG vial IV SCH (08:17)
[2019-04-27] MEDS: oxybutynin 5mg tablet PO SCH (08:18)
[2019-04-27] MEDS: levoTHYROXINE 100mcg tablet GT SCH (08:18)
[2019-04-27] MEDS: amiodarone 100mg tablet GT SCH (08:18)
[2019-04-27] MEDS: lactobacillus rhamnosus 10,000 MMU CELLS/CAPSULE GT SCH (08:18)
[2019-04-27] MEDS: nystatin 500,000 unit/5ML UD oral suspension GT SCH (08:18)
[2019-04-27] MEDS: pregabalin 25mg capsule PO SCH (08:19)
[2019-04-27] MEDS: LIDOcaine 5% patch TP SCH (08:19)
[2019-04-27] MEDS ORDERED: predniSONE 20 mg tablet PO SCH ×2 (08:30)
[2019-04-27 09:46] LABS: BASOPHILS % (AUTO) 0.1 % (0-1); EOSINOPHILS # (AUTO) 0.1 X10'3 (0-0.9); EOSINOPHILS % (AUTO) 0.6 % (0-6); HEMATOCRIT 46.3 % (35.0-45.0); HEMOGLOBIN 15.1 g/dl (12.0-16.0); LYMPHOCYTES # (AUTO) 0.9 X10'3 (1.1-4.8); LYMPHOCYTES % (AUTO) 8.1 % (21-51); MEAN CORPUSCULAR HEMOGLOBIN 28.1 PG (27.0-31.0); MEAN CORPUSCULAR HGB CONC 32.6 g/dL (33.0-36.5); MONOCYTES # (AUTO) 1.1 X10'3 (0-0.9); MONOCYTES % (AUTO) 9.4 % (2-12); NEUTROPHILS # (AUTO) 9.4 X10'3 (1.8-7.7); NEUTROPHILS % (AUTO) 81.8 % (42-75); PLATELET COUNT 64 X10'3 (140-440); RED BLOOD COUNT 5.38 X10'6 (4.20-5.60); RED CELL DISTRIBUTION WIDTH 16.7 % (11.5-14.5); WHITE BLOOD COUNT 11.5 X10'3 (4.5-11.0)
[2019-04-27 10:00] VITALS: BP 111/67
[2019-04-27 10:14] LABS: ALANINE AMINOTRANSFERASE 36 U/L (12-78); ALBUMIN 2.6 G/DL (3.4-5.0); ALBUMIN/GLOBULIN RATIO 0.8 (1.1-1.5); ALKALINE PHOSPHATASE 186 IU/L (46-116); ANION GAP 6 (8-16); ASPARTATE AMINO TRANSFERASE 26 U/L (10-37); BILIRUBIN,TOTAL 0.6 MG/DL (0.1-1.0); BLOOD UREA NITROGEN 69 MG/DL (7-18); BUN/CREATININE RATIO 51.5 (6.6-38.0); CALCIUM 8.3 MG/DL (8.5-10.1); CHLORIDE 102 MMOL/L (99-107); CREATININE 1.34 MG/DL (0.40-0.90); GLUCOSE 117 MG/DL (70-104); POTASSIUM 4.9 MMOL/L (3.5-5.1); SODIUM 138 MMOL/L (135-145); TOTAL CARBON DIOXIDE 29.6 MMOL/L (24-32); eGFR 38 ML/MIN
--- NOTE | 2019-04-27 14:18 | NUR ---
reassessment: Pt tolerating bolus feeds QID at goal almost no residuals since change to bolus from continuous. LBM 04/25. Recurrent bouts of hypotension and bradycardia per MD note. Pt had low GLU 36 DM meds now d/c'd and GLU corrected. Na WNL. Will continue to monitor. Recommendations: 1) bolus PEG feeds QID at 8AM, 12PM, 4PM, and 8PM using Jevity 1.2 at 300ml bolus. Initiate at 120ml bolus and advance 90ml per bolus to goal as tolerated. To provide 1200ml fluid, 1440kcals, 972ml free water, and 67g protein. Water flush 60ml before and after feeds. 2) additional water flushes 150ml Q6 3) Prealbumin q /; daily weight 4) Routine bowel group home BOLUS RECS: 1. Home bolus feeds TID via PEG using Glucerna 1.5 or equivalent at 325ml bolus goal. Initiate at 120ml and advance 60ml per bolus feed to goal as tolerated. Water flush 60ml before and after feeds. 2. additional 900ml free water daily 3. outpatient RD to titrate PEG feeds given hydration, kcal, and protein needs Addendum: 04/27/19 at [address] Amended: Links added.
[2019-04-27] MEDS ORDERED: NYST1000 GT (14:29)
[2019-04-27] MEDS ORDERED: LIDO700A47 TP (14:29)
[2019-04-27] MEDS ORDERED: PRED20TA PO (14:49)
--- NOTE | 2019-04-27 15:45 | NUR ---
Received discharge orders from Dr. Rivera. Pts dtr here and observed patient receiving tube feeding at 1400. BS 119 at 1400. Taught daughter how to check residual prior to administering tube feeding (Jevity 1.2)-300 cc then free water 150cc every 6 hours (0800,1400, 2000, 0200). Informed pt's daughter to have head of pts bed at least at a 30 degrees elevated during TF or higher when sitting in chair at night. Homecare to start on Sunday per pts daughter. Saline lock dc'd with cannula intact. Telemetry dc'd. Gave pt supply (3 bottles) of Jevity 1.2 as well as underpads, gloves, irrigation set. Three discharge prescriptions called to [facility] on [facility] [address] Dr[address] Rivera. W/C provided to private vehicle for discharge at 4395.
== END 2019-04-27 16:10 | disposition home health service (06) | DRG 177 ==
LOC: ER 13:15 → ORTHO 4S 20:31 → CMPBEDREQ 20:40
PROVIDERS: ADMIT Family Medicine; ATTEND Family Medicine
PROC: 0DB38ZX Excision of Lower Esophagus, Via Natural or Artificial Opening Endoscopic, Diagnostic (ICD-10-PCS; principal; 2019-04-18)
PROC: 0DB68ZX Excision of Stomach, Via Natural or Artificial Opening Endoscopic, Diagnostic (ICD-10-PCS; 2019-04-18)
PROC: 0DH63UZ Insertion of Feeding Device into Stomach, Percutaneous Approach (ICD-10-PCS; 2019-04-22)
DX: J69.0 Pneumonitis due to inhalation of food and vomit (principal); J96.00 Acute respiratory failure, unspecified whether with hypoxia or hypercapnia; I50.43 Acute on chronic combined systolic (congestive) and diastolic (congestive) heart failure; N17.0 Acute kidney failure with tubular necrosis; E87.0 Hyperosmolality and hypernatremia; I13.0 Hypertensive heart and chronic kidney disease with heart failure and stage 1 through stage 4 chronic kidney disease, or unspecified chronic kidney disease; N39.0 Urinary tract infection, site not specified; I48.2 Chronic atrial fibrillation; F02.80 Dementia in other diseases classified elsewhere, unspecified severity, without behavioral disturbance, psychotic disturbance, mood disturbance, and anxiety; D69.6 Thrombocytopenia, unspecified; E10.22 Type 1 diabetes mellitus with diabetic chronic kidney disease; E10.42 Type 1 diabetes mellitus with diabetic polyneuropathy; E10.51 Type 1 diabetes mellitus with diabetic peripheral angiopathy without gangrene; E10.649 Type 1 diabetes mellitus with hypoglycemia without coma; E10.65 Type 1 diabetes mellitus with hyperglycemia; G30.9 Alzheimer's disease, unspecified; E89.0 Postprocedural hypothyroidism; E86.0 Dehydration; I25.10 Atherosclerotic heart disease of native coronary artery without angina pectoris; N18.9 Chronic kidney disease, unspecified; J43.9 Emphysema, unspecified; Z77.22 Contact with and (suspected) exposure to environmental tobacco smoke (acute) (chronic); Z96.642 Presence of left artificial hip joint; K22.8 Other specified diseases of esophagus; K29.70 Gastritis, unspecified, without bleeding; K44.9 Diaphragmatic hernia without obstruction or gangrene; Z79.4 Long term (current) use of insulin; Z79.890 Hormone replacement therapy; Z82.0 Family history of epilepsy and other diseases of the nervous system; Z82.3 Family history of stroke; Z82.41 Family history of sudden cardiac death; Z82.49 Family history of ischemic heart disease and other diseases of the circulatory system; Z82.5 Family history of asthma and other chronic lower respiratory diseases; Z83.3 Family history of diabetes mellitus; I25.2 Old myocardial infarction; Z79.899 Other long term (current) drug therapy; Z88.8 Allergy status to other drugs, medicaments and biological substances; Z85.828 Personal history of other malignant neoplasm of skin; Z86.73 Personal history of transient ischemic attack (TIA), and cerebral infarction without residual deficits; Z86.74 Personal history of sudden cardiac arrest; Z87.11 Personal history of peptic ulcer disease; Z93.0 Tracheostomy status; Z95.1 Presence of aortocoronary bypass graft; Z95.5 Presence of coronary angioplasty implant and graft; G89.29 Other chronic pain; M54.9 Dorsalgia, unspecified
CPT/HCPCS: 36415; 43239; 43246; 71045; 71046; 74018; 74220; 74230; 80053; 80061; 81001; 82948; 83036; 83605; 83735; 83880; 84134; 84145; 84443; 85025; 85610; 87040; 87070; 87077; 87081; 87088; 87186; 88305; 88342; 92508; 92616; 93005; 93306; 94640; 94760; 96365; 96368; 96375; 97110; 97112; 97116; 97161; 97530; 97535; 99152; 99285; A4620; B4087; C9113; G0378; J0692; J0696; J1170; J1650; J1815; J1940; J1956; J2250; J2405; J2920; J2930; J3010; J3490; J7040; J7070; J7512

== ENCOUNTER 2019-05-28 13:18 | Inpatient (IN) | payer MEDICARE, MEDICAID ==
[~2019-05-28] VITALS: Ht 149.9 cm; Wt 79.0 kg
[~2019-05-28 13:18] MED LIST changes: -ALBU0.63 NEB; +AMIO100T PO; -BARIUM SULFATE 340 ML SUSP.RECON***PROCEDURE AREA ONLY**DONT ENTER PO ONE; -BENZ-16 PO; +BENZ-49 PO; -DEXT1DRO9 OP; -DILT180C89 PO; +DOCU-20 PO; -DOCU-28 PO; +FAMO20TA8 PO; -FERR325T29 PO; -FLUT1DIS7 INH; -FURO-149 PO; -FURO-150 PO; +GUAI118S13 PO; -GUAI473S11 PO; -HYDR-3965 PO; -HYPR15DR4 EACHEYE; -IPRA3AMP31 IH; +LIDO700A47 TP; -LIDO700A5 TP; -LORA10TA7 PO; +NYST1000 GT; -OMEP20CA4 PO; +OXYB5TAB16 PO; -POTA8TAB8 PO; +PRED20TA PO; -SPIR25TA5 PO; -TIOT18CA7 IH; +UMEC62.5 IH
[2019-05-28 13:58] LABS: BASOPHILS # (AUTO) 0.1 X10'3 (0-0.2); BASOPHILS % (AUTO) 0.6 % (0-1); EOSINOPHILS % (AUTO) 0.1 % (0-6); HEMATOCRIT 38.7 % (35.0-45.0); HEMOGLOBIN 12.9 g/dl (12.0-16.0); LYMPHOCYTES # (AUTO) 0.5 X10'3 (1.1-4.8); LYMPHOCYTES % (AUTO) 4.3 % (21-51); MEAN CORPUSCULAR HGB CONC 33.3 g/dL (33.0-36.5); MEAN CORPUSCULAR VOLUME 87.1 FL (78-98); MEAN PLATELET VOLUME 11.1 FL (7.4-10.4); MONOCYTES # (AUTO) 1.1 X10'3 (0-0.9); MONOCYTES % (AUTO) 9.1 % (2-12); NEUTROPHILS % (AUTO) 85.9 % (42-75); PLATELET COUNT 97 X10'3 (140-440); RED BLOOD COUNT 4.44 X10'6 (4.20-5.60); RED CELL DISTRIBUTION WIDTH 17.5 % (11.5-14.5); WHITE BLOOD COUNT 11.6 X10'3 (4.5-11.0)
[2019-05-28 14:19] LABS: ALANINE AMINOTRANSFERASE 41 U/L (12-78); ALBUMIN/GLOBULIN RATIO 0.7 (1.1-1.5); ALKALINE PHOSPHATASE 123 IU/L (46-116); ANION GAP 9 (8-16); ASPARTATE AMINO TRANSFERASE 23 U/L (10-37); BILIRUBIN,TOTAL 0.9 MG/DL (0.1-1.0); BLOOD UREA NITROGEN 74 MG/DL (7-18); BUN/CREATININE RATIO 34.6 (6.6-38.0); CALCIUM 8.6 MG/DL (8.5-10.1); CHLORIDE 99 MMOL/L (99-107); CREATININE 2.14 MG/DL (0.40-0.90); GLUCOSE 203 MG/DL (70-104); POTASSIUM 4.6 MMOL/L (3.5-5.1); SODIUM 136 MMOL/L (135-145); TOTAL CARBON DIOXIDE 27.6 MMOL/L (24-32); TOTAL PROTEIN 7.6 G/DL (6.4-8.2); eGFR 22 ML/MIN
[2019-05-28] MEDS ORDERED: aspirin 325mg tablet PO ONE (14:40)
[2019-05-28] MEDS ORDERED: levoFLOXACIN-Levaquin 750MG/D5 150 ML IV ONE (14:45)
[2019-05-28 14:46] LABS: LARGE PLATELETS FEW; PLATELET ESTIMATE DECREASED
[2019-05-28] MEDS: metoprolol tartrate 1mg/ml inj IV SCH ×4 (15:06→16:07)
[2019-05-28] MEDS ORDERED: ondansetron/PF 4mg/2ml inj IV PRN (15:10)
[2019-05-28] MEDS ORDERED: acetaminophen 325mg tablet PO PRN (15:10)
[2019-05-28] MEDS ORDERED: magnesium hydroxide 30ml (MOM) UD suspension PO PRN (15:10)
[2019-05-28] MEDS ORDERED: mag hydrox/Alum hydrox/simeth 30ml oral suspension PO PRN (15:10)
[2019-05-28] MEDS: normal saline 1000ml 1,000 ML IV SCH ×2 (16:01→22:51)
[2019-05-28 16:21] LABS: ABG BASE EXCESS 0.8 mmol/L (-2.0-3.0); ABG OXYGEN SATURATION 93.9 % (95-98); ABG PCO2 (T) 43.9 mmHg (35.0-45.0); ABG PH (T) 7.391 (7.350-7.450); ABG PO2 (T) 69.6 mmHg (83-108); ALLEN'S TEST Positive; FCOHb 1.8 % (0.5-1.5); FLOW 2 L/min; FMetHb 0.3 % (0.3-1.12); FO2Hb 91.9 % (94-100); RESPIRATORY RATE (OBSERVED) 24 b/min; TOTAL HEMOGLOBIN 13.3 G/dl (12.0-16.0)
[2019-05-28 17:30] VITALS: BP 89/59
--- NOTE | 2019-05-28 17:30 | NUR ---
Patient admitted to room PCU 3021 from ED. I have received report from Gary AARON and had the opportunity to ask questions and assume patient care. Pt arrived to unit at 1730 via han and 1 RN and daughter, pt tucked into bed, VSS, call light w/in reach, will continue to monitor.
[2019-05-28] MEDS ORDERED: non-formulary drug (Ondansetron (Ondansetron Odt) 1 TAB) PO PRN (17:50)
[2019-05-28 18:00] VITALS: BP 91/58
[2019-05-28] MEDS ORDERED: guaiFENesin/codeine phos 10ml UD oral syrup PO PRN (18:25)
--- NOTE | 2019-05-28 18:27 | NUR ---
Patient in room PCU 3021. I have received report from Dasha AARON and had the opportunity to ask questions and assume patient care.
--- NOTE | 2019-05-28 18:27 | NUR ---
Patient in room PCU 3021. I have received report from Dasha AARON and had the opportunity to ask questions and assume patient care.
[2019-05-28] MEDS ORDERED: albuterol 2.5 MG/3 ML nebule NEB PRN (18:30)
--- NOTE | 2019-05-28 18:39 | NUR ---
Problems reprioritized. Patient report given, questions answered & plan of care reviewed with Cecil AARON.
[2019-05-28] MEDS: ipratropium/albuterol 3ml nebule NEB SCH ×2 (19:10→23:38)
[2019-05-28] MEDS: oxybutynin 5mg tablet PO SCH (21:06)
[2019-05-28] MEDS: pregabalin 25mg capsule PO SCH (21:06)
[2019-05-28] MEDS: heparin, porcine 5000 units/ml vial SQ SCH (21:07)
[2019-05-28 22:00] VITALS: BP 96/53
[2019-05-28 23:57] LABS: CLARITY,URINE CLEAR (Clear); COLOR,URINE YELLOW (Yellow); GLUCOSE, URINE NEGATIVE (Neg); KETONES,URINE NEGATIVE (Neg); LEUKOCYTE ESTERASE ,URINE TRACE (Neg); NITRITES, URINE NEGATIVE (Neg); OCCULT BLOOD,URINE NEGATIVE (Neg); PROTEIN,URINE NEGATIVE (Neg); UA COLLECTION TYPE CLN CATCH MIDSTREAM
[2019-05-29] VITALS (7 sets, daily range): BP systolic 97–108; BP diastolic 42–77
[2019-05-29 00:05] LABS: BACTERIA,URINE NONE SEEN /HPF (Neg); MUCUS STRANDS NONE SEEN /LPF (Neg); RBC,URINE NONE SEEN /HPF (0-2); SQUAMOUS EPITHELIAL CELL,UR FEW /LPF (FEW); WBC,URINE NONE SEEN /HPF (0-4)
[2019-05-29 02:45] LABS: ALBUMIN 2.8 G/DL (3.4-5.0); ANION GAP 7 (8-16); BLOOD UREA NITROGEN 76 MG/DL (7-18); BUN/CREATININE RATIO 38.4 (6.6-38.0); CALCIUM 8.6 MG/DL (8.5-10.1); CHLORIDE 102 MMOL/L (99-107); CREATININE 1.98 MG/DL (0.40-0.90); GLUCOSE 95 MG/DL (70-104); POTASSIUM 4.8 MMOL/L (3.5-5.1); SODIUM 138 MMOL/L (135-145); TOTAL CARBON DIOXIDE 29.4 MMOL/L (24-32); eGFR 24 ML/MIN
[2019-05-29] MEDS: ipratropium/albuterol 3ml nebule NEB SCH ×6 (04:04→23:13)
[2019-05-29 05:58] LABS: BASOPHILS % (AUTO) 0.3 % (0-1); EOSINOPHILS % (AUTO) 0.1 % (0-6); HEMATOCRIT 32.4 % (35.0-45.0); HEMOGLOBIN 10.9 g/dl (12.0-16.0); LYMPHOCYTES # (AUTO) 0.8 X10'3 (1.1-4.8); LYMPHOCYTES % (AUTO) 13.5 % (21-51); MEAN CORPUSCULAR HEMOGLOBIN 29.6 PG (27.0-31.0); MEAN CORPUSCULAR HGB CONC 33.8 g/dL (33.0-36.5); MEAN CORPUSCULAR VOLUME 87.5 FL (78-98); MEAN PLATELET VOLUME 11.1 FL (7.4-10.4); MONOCYTES # (AUTO) 0.6 X10'3 (0-0.9); MONOCYTES % (AUTO) 10.5 % (2-12); NEUTROPHILS # (AUTO) 4.7 X10'3 (1.8-7.7); NEUTROPHILS % (AUTO) 75.6 % (42-75); PLATELET COUNT 65 X10'3 (140-440); RED CELL DISTRIBUTION WIDTH 17.5 % (11.5-14.5); WHITE BLOOD COUNT 6.1 X10'3 (4.5-11.0)
--- NOTE | 2019-05-29 06:00 | NUR ---
Patient in room PCU 3021. I have received report from Cecil AARON and had the opportunity to ask questions and assume patient care.
--- NOTE | 2019-05-29 06:12 | NUR ---
Orientee documentation: I have reviewed and agree with all interventions, assessments performed and documented by Ryan AARON.
--- NOTE | 2019-05-29 06:26 | NUR ---
Problems reprioritized. Patient report given, questions answered & plan of care reviewed with Meghna AARON.
--- NOTE | 2019-05-29 06:32 | NUR ---
Patient in room PCU 3021. I have received report from Cecil RN/Ryan RN and had the opportunity to ask questions and assume patient care. All patients needs met at this time.
[2019-05-29] MEDS: levoTHYROXINE 100mcg tablet PO SCH (07:35)
[2019-05-29] MEDS: famotidine 20mg tablet PO SCH (07:35)
[2019-05-29] MEDS: oxybutynin 5mg tablet PO SCH ×2 (07:35→20:43)
[2019-05-29] MEDS: amiodarone 100mg tablet PO SCH (07:36)
[2019-05-29] MEDS: pregabalin 25mg capsule PO SCH ×2 (07:37→20:43)
[2019-05-29] MEDS: heparin, porcine 5000 units/ml vial SQ SCH ×2 (08:00→20:00)
[2019-05-29] MEDS ORDERED: levoFLOXACIN-Levaquin 500mg/D5 100 ML IV SCH (08:00)
--- NOTE | 2019-05-29 10:06 | NUR ---
Paged Dr Coppola PAGER ID: [phone] MESSAGE: Re: Zhane Elam 0936 Concern regarding NPO status, please call. Thank you Meghna [phone]
--- NOTE | 2019-05-29 10:07 | NUR ---
When I received report, [facility] nurses told me the patient failed a swallow study so she was to be NPO. Patient has a PEG tube, so willow machine tender was called and was told she was receiving bolus feeds at home through her PEG tube with no complications. Patient has a history of CVA, TIA which may effect her ability to swallow by mouth. I paged Dr Coppola to ask about discussing if we should start tube feedings.
[2019-05-29] MEDS: predniSONE 20 mg tablet PO SCH (10:45)
--- NOTE | 2019-05-29 15:50 | NUR ---
TF consult: Pt admit with SOB and PNA, possible aspiration. Pt with hx trach and PEG however trach was removed PRICE CHANGER. Pt s/p BSS this morning with ST recs pureed food with nectar thick liquids. Per RN patient's family present earlier in the day and daughter, who is one of pt's primary CG per RN, states pt takes all nutrition and meds via PEG however pt received meds via applesauce early this morning after BSS and pt was very thrilled about it. Discussed feeding options with MD, MD would like nutrition support via PEG as sole source of nutrition at this time with no PO food given pt admit with possible aspiration PNA. MD would like to proceed with bolus feeds to mirror home regimen. Pt A/O x 2 and currently with no family at bedside to discuss home TF rx. Bolus TF recs below calculated to meet 100% of patient's estimated nutrient needs. LBM 05/27. Will continue to follow. Recommendations: 1) Bolus feedings via PEG QID at 0800, 1200, 1600, and 2000 using Jevity 1.2 at 300 mL/bolus. Initiate at 150 mL bolus and advance by 50 mL per bolus to goal as tolerated. To provide total volume 1200 mL/day, 1440 kcals, 968 mL water, and 67 g protein 2) Water flush 60 mL before and after each bolus feed 3) Prealbumin q /; daily weight 4) Routine bowel care 5) PO diet advancement as medically indicated per and ST recs Addendum: 05/29/19 at [address] Amended: Links added.
--- NOTE | 2019-05-29 16:00 | NUR ---
Unable to give patient her 300ml bolus tube feeding due to the tube feed being unavailable at this time. Still waiting for knockup worker to bring tube feed up to the floor.
[2019-05-29 17:30] LABS: PREALBUMIN 14.3 MG/DL (19-36)
--- NOTE | 2019-05-29 18:12 | NUR ---
Problems reprioritized. Patient report given, questions answered & plan of care reviewed with Cecil AARON.
--- NOTE | 2019-05-29 18:27 | NUR ---
Page Sent promotional table spacer PAGER ID: [phone] MESSAGE: [phone] Zhane Elam here for PNA, her platelet count is @65. Do you want me to hold the heparin? Cecil [phone]
--- NOTE | 2019-05-29 18:30 | NUR ---
Problems reprioritized. Patient report given, questions answered & plan of care reviewed with Cecil AARON.
--- NOTE | 2019-05-29 18:30 | NUR ---
Patient in room PCU 3021. I have received report from Frank/Meghna Marin and had the opportunity to ask questions and assume patient care.
--- NOTE | 2019-05-29 18:43 | NUR ---
Dr. Coppola responded to the previous page and wants to hold the heparin tonight.
--- NOTE | 2019-05-29 18:50 | NUR ---
Orientee documentation: I have reviewed and agree with all interventions, assessments performed and documented by Meghna AARON.
[2019-05-29] MEDS: lactobacillus rhamnosus 10,000 MMU CELLS/CAPSULE PO SCH (20:42)
[2019-05-29] MEDS: [UNRECOGNIZED DRUG - OTHER] IH SCH (23:39)
[2019-05-29] MEDS: UMECLIDINIUM BROMIDE IH SCH (23:39)
[2019-05-30 02:00] VITALS: BP 101/63
[2019-05-30] MEDS: ipratropium/albuterol 3ml nebule NEB SCH ×6 (03:17→23:00)
[2019-05-30] MEDS: nystatin 15 GM powder TP PRN (04:58)
[2019-05-30 05:58] LABS: BASOPHILS % (AUTO) 0.2 % (0-1); EOSINOPHILS % (AUTO) 0 % (0-6); HEMATOCRIT 31.2 % (35.0-45.0); HEMOGLOBIN 10.7 g/dl (12.0-16.0); LYMPHOCYTES # (AUTO) 0.4 X10'3 (1.1-4.8); LYMPHOCYTES % (AUTO) 6.2 % (21-51); MEAN CORPUSCULAR HEMOGLOBIN 29.6 PG (27.0-31.0); MEAN CORPUSCULAR HGB CONC 34.3 g/dL (33.0-36.5); MEAN CORPUSCULAR VOLUME 86.3 FL (78-98); MEAN PLATELET VOLUME 10.9 FL (7.4-10.4); MONOCYTES # (AUTO) 0.5 X10'3 (0-0.9); MONOCYTES % (AUTO) 8.1 % (2-12); NEUTROPHILS # (AUTO) 5.7 X10'3 (1.8-7.7); NEUTROPHILS % (AUTO) 85.5 % (42-75); PLATELET COUNT 65 X10'3 (140-440); RED BLOOD COUNT 3.62 X10'6 (4.20-5.60); RED CELL DISTRIBUTION WIDTH 17.4 % (11.5-14.5); WHITE BLOOD COUNT 6.6 X10'3 (4.5-11.0)
[2019-05-30 06:00] VITALS: BP 86/56
[2019-05-30 06:03] LABS: ALBUMIN 2.6 G/DL (3.4-5.0); ANION GAP 8 (8-16); BLOOD UREA NITROGEN 57 MG/DL (7-18); BUN/CREATININE RATIO 32.8 (6.6-38.0); CALCIUM 8.4 MG/DL (8.5-10.1); CHLORIDE 107 MMOL/L (99-107); CREATININE 1.74 MG/DL (0.40-0.90); GLUCOSE 142 MG/DL (70-104); POTASSIUM 4.2 MMOL/L (3.5-5.1); SODIUM 144 MMOL/L (135-145); TOTAL CARBON DIOXIDE 29.1 MMOL/L (24-32); eGFR 28 ML/MIN
--- NOTE | 2019-05-30 06:14 | NUR ---
Problems reprioritized. Patient report given, questions answered & plan of care reviewed with Frank AARON.
[2019-05-30] MEDS: pregabalin 25mg capsule PO SCH (07:21)
[2019-05-30] MEDS: amiodarone 100mg tablet PO SCH (07:21)
[2019-05-30] MEDS: lactobacillus rhamnosus 10,000 MMU CELLS/CAPSULE PO SCH ×2 (07:21→21:40)
[2019-05-30] MEDS: levoTHYROXINE 100mcg tablet PO SCH (07:21)
[2019-05-30] MEDS: famotidine 20mg tablet PO SCH (07:21)
[2019-05-30] MEDS: oxybutynin 5mg tablet PO SCH (07:21)
[2019-05-30] MEDS: levoFLOXACIN-Levaquin 250mg/D5 50 ML IV SCH (07:23)
[2019-05-30] MEDS: predniSONE 20 mg tablet PO SCH (07:33)
[2019-05-30] MEDS: [UNRECOGNIZED DRUG - OTHER] IH SCH (08:00)
[2019-05-30] MEDS: heparin, porcine 5000 units/ml vial SQ SCH ×2 (08:00→20:00)
[2019-05-30] MEDS: UMECLIDINIUM BROMIDE IH SCH (08:00)
[2019-05-30] MEDS ORDERED: acetaminophen 325mg/10.15ml oral unit dose solution PEG PRN (10:29)
[2019-05-30] MEDS ORDERED: mag hydrox/Alum hydrox/simeth 30ml oral suspension PEG PRN (10:37)
[2019-05-30 11:00] VITALS: BP 96/65
--- NOTE | 2019-05-30 12:00 | NUR ---
Spoke with patient this morning regarding her diet. Yesterday, she was seen by [facility] speech therapist for a swallow eval, which she passed for Pureed/[place] thick liquid diet. She tolerated a pureed lunch tray and medications crushed in applesauce. Abdon HULL was informed and he opted to keep pt. on tube feeds. This morning, patient had verbalized that she would like to continue trying the pureed diet and medication with applesauce and she was able to discuss this with Abdon HULL at bedside. Abdon HULL agreed as long as she is fed and monitored during meals. I contacted dietary and spoke with Tricia who stated that I can put in the order for a pureed diet and not complete the tube feeding diet so that patient can continue receiving bolus tube feeds when she is not able to tolerate a pureed tray. I also spoke with pharmacist, to inform them that I have received verbal OK from MD to administer medication crushed with applesauce and that administration route on eMAR states that it will be given via PEG. Pharmacist stated that is fine and we can still administer orally with applesauce. Patient stated that she would like to have a tray for lunch with some milk. Informed pt. that tray may not come up until around 1300; pt. agreeable. Request for late pureed lunch tray sent down to kitchen. 1200 tube feed held. Addendum: 05/30/19 at 1251 by Frank Juares RN Amended: Links added.
[2019-05-30 15:00] VITALS: BP 95/67
[2019-05-30 18:00] VITALS: BP 129/68
--- NOTE | 2019-05-30 18:33 | NUR ---
Problems reprioritized. Patient report given, questions answered & plan of care reviewed with Shahzad AARON.
[2019-05-30] MEDS: oxybutynin 5mg per 5ml oral solution PO SCH (20:00)
[2019-05-30] MEDS: guaiFENesin/codeine phos 10ml UD oral syrup PEG PRN (21:39)
[2019-05-30] MEDS: pregabalin 25mg capsule PEG SCH (21:41)
[2019-05-30 22:00] VITALS: BP 135/71
[2019-05-31 02:00] VITALS: BP 126/77
[2019-05-31] MEDS: ipratropium/albuterol 3ml nebule NEB SCH ×6 (03:10→23:18)
[2019-05-31 06:00] VITALS: BP 101/72
[2019-05-31 06:02] LABS: BASOPHILS % (AUTO) 0.2 % (0-1); EOSINOPHILS % (AUTO) 0 % (0-6); HEMOGLOBIN 11.8 g/dl (12.0-16.0); LYMPHOCYTES # (AUTO) 0.9 X10'3 (1.1-4.8); MEAN CORPUSCULAR HEMOGLOBIN 29.7 PG (27.0-31.0); MEAN CORPUSCULAR HGB CONC 33.8 g/dL (33.0-36.5); MEAN CORPUSCULAR VOLUME 87.6 FL (78-98); MEAN PLATELET VOLUME 10.8 FL (7.4-10.4); MONOCYTES # (AUTO) 0.8 X10'3 (0-0.9); MONOCYTES % (AUTO) 8.2 % (2-12); NEUTROPHILS # (AUTO) 7.8 X10'3 (1.8-7.7); NEUTROPHILS % (AUTO) 82.6 % (42-75); PLATELET COUNT 79 X10'3 (140-440); RED BLOOD COUNT 3.99 X10'6 (4.20-5.60); RED CELL DISTRIBUTION WIDTH 17.7 % (11.5-14.5); WHITE BLOOD COUNT 9.5 X10'3 (4.5-11.0)
[2019-05-31 06:11] LABS: ALBUMIN 2.8 G/DL (3.4-5.0); ANION GAP 5 (8-16); BLOOD UREA NITROGEN 51 MG/DL (7-18); BUN/CREATININE RATIO 34.2 (6.6-38.0); CHLORIDE 108 MMOL/L (99-107); CREATININE 1.49 MG/DL (0.40-0.90); GLUCOSE 125 MG/DL (70-104); POTASSIUM 4.3 MMOL/L (3.5-5.1); SODIUM 143 MMOL/L (135-145); TOTAL CARBON DIOXIDE 29.6 MMOL/L (24-32); eGFR 34 ML/MIN
--- NOTE | 2019-05-31 06:39 | NUR ---
Problems reprioritized. Patient report given, questions answered & plan of care reviewed with Frank AARON
--- NOTE | 2019-05-31 06:48 | NUR ---
Patient in room PCU 3021. I have received report from Shahzad AARON and had the opportunity to ask questions and assume patient care.
[2019-05-31] MEDS: heparin, porcine 5000 units/ml vial SQ SCH ×2 (08:00→20:23)
--- NOTE | 2019-05-31 08:00 | NUR ---
Per patient request tube feeding held to accomodate pureed/nectar thick tray. Has 5ml of residual. Assisted with meals by aide. Tolerated well. Oropharynx suction in hand, educated on proper use. Call light in reach Addendum: 05/31/19 at 0944 by Frank Juares RN Amended: Links added.
[2019-05-31] MEDS: levoFLOXACIN-Levaquin 250mg/D5 50 ML IV SCH (08:26)
[2019-05-31] MEDS: pregabalin 25mg capsule PEG SCH ×2 (08:27→20:24)
[2019-05-31] MEDS: amiodarone 100mg tablet PEG SCH (08:27)
[2019-05-31] MEDS: predniSONE 20 mg tablet PEG SCH (08:28)
[2019-05-31] MEDS: famotidine 20mg tablet PEG SCH (08:28)
[2019-05-31] MEDS: levoTHYROXINE 100mcg tablet PEG SCH (08:28)
[2019-05-31] MEDS: lactobacillus rhamnosus 10,000 MMU CELLS/CAPSULE PO SCH ×2 (08:28→20:23)
[2019-05-31] MEDS: oxybutynin 5mg per 5ml oral solution PO SCH (08:29)
[2019-05-31 11:00] VITALS: BP 129/76
--- NOTE | 2019-05-31 12:00 | NUR ---
Patient opted to have the pureed tray for lunch. Residual at 10ml. Tube feeding held to accommodate pureed diet. Assisted with meal by aide. Oropharynx suction in hand; instructed on proper use. Call light in reach. Will continue to monitor Addendum: 05/31/19 at 1542 by Frank Juares RN Amended: Links added.
[2019-05-31] MEDS ORDERED: oxybutynin 5mg per 5ml oral solution PEG SCH (12:01)
[2019-05-31] MEDS: magnesium hydroxide 30ml (MOM) UD suspension PEG PRN (12:31)
[2019-05-31] MEDS: HYDROcodone/acetaminophen 5mg/325mg tablet PO PRN ×2 (12:31→20:37)
--- NOTE | 2019-05-31 13:01 | NUR ---
Rosa Sanchez MD regarding pt. ability to ambulate. PAGER ID: [phone] MESSAGE: [phone] Mimi Elam, pt. unable to ambulate d/t necrotic tissue on the sole of L foot. Do you want me to put in PT eval and wound consult? Frank [phone]
[2019-05-31 15:37] VITALS: BP 124/81
--- NOTE | 2019-05-31 15:48 | NUR ---
Paged Phys. Therapy about possibly squeezing in an eval today. Per MD, possible discharge home tomorrow but would like to know what patient is capable of doing activity allred first. Awaiting PT response.
--- NOTE | 2019-05-31 18:51 | NUR ---
Problems reprioritized. Patient report given, questions answered & plan of care reviewed with Rosenda AARON.
[2019-05-31 19:00] VITALS: BP 128/68
[2019-05-31] MEDS: oxybutynin 5mg per 5ml oral solution PEG SCH (20:23)
[2019-05-31 23:00] VITALS: BP 119/57
[2019-06-01] VITALS (7 sets, daily range): BP systolic 84–136; BP diastolic 52–75
[2019-06-01] MEDS: ipratropium/albuterol 3ml nebule NEB SCH ×6 (03:08→23:06)
--- NOTE | 2019-06-01 03:14 | NUR ---
BLOOD SUGARS BEING DONE AC AND HS
[2019-06-01 05:27] LABS: BASOPHILS % (AUTO) 0.3 % (0-1); EOSINOPHILS % (AUTO) 0 % (0-6); HEMATOCRIT 34.9 % (35.0-45.0); HEMOGLOBIN 11.8 g/dl (12.0-16.0); LYMPHOCYTES % (AUTO) 9.4 % (21-51); MEAN CORPUSCULAR HEMOGLOBIN 29.5 PG (27.0-31.0); MEAN CORPUSCULAR VOLUME 86.9 FL (78-98); MEAN PLATELET VOLUME 10.9 FL (7.4-10.4); MONOCYTES # (AUTO) 0.7 X10'3 (0-0.9); MONOCYTES % (AUTO) 7.4 % (2-12); NEUTROPHILS # (AUTO) 8.4 X10'3 (1.8-7.7); NEUTROPHILS % (AUTO) 82.9 % (42-75); PLATELET COUNT 92 X10'3 (140-440); RED BLOOD COUNT 4.01 X10'6 (4.20-5.60); RED CELL DISTRIBUTION WIDTH 17.8 % (11.5-14.5); WHITE BLOOD COUNT 10.1 X10'3 (4.5-11.0)
[2019-06-01 05:39] LABS: ALBUMIN 2.8 G/DL (3.4-5.0); ANION GAP 5 (8-16); BLOOD UREA NITROGEN 54 MG/DL (7-18); CALCIUM 9.3 MG/DL (8.5-10.1); CHLORIDE 109 MMOL/L (99-107); CREATININE 1.69 MG/DL (0.40-0.90); GLUCOSE 114 MG/DL (70-104); SODIUM 144 MMOL/L (135-145); TOTAL CARBON DIOXIDE 30.2 MMOL/L (24-32); eGFR 29 ML/MIN
--- NOTE | 2019-06-01 06:30 | NUR ---
Patient in room PCU 3021. I have received report from AGNIESZKA Herzog and had the opportunity to ask questions and assume patient care. Patient awake in bed with no complaints. All immediate needs met at this time.
--- NOTE | 2019-06-01 07:32 | NUR ---
Patient in room PCU 3021. I have received report from Rosenda Love, and had the opportunity to ask questions and assume patient care. Patient resting in bed. Haritha Alvarez RN
[2019-06-01] MEDS: heparin, porcine 5000 units/ml vial SQ SCH ×2 (08:00→20:15)
[2019-06-01] MEDS: levoFLOXACIN-Levaquin 250mg/D5 50 ML IV SCH (09:03)
[2019-06-01] MEDS: pregabalin 25mg capsule PEG SCH ×2 (09:04→20:13)
[2019-06-01] MEDS: levoTHYROXINE 100mcg tablet PEG SCH (09:04)
[2019-06-01] MEDS: famotidine 20mg tablet PEG SCH (09:05)
[2019-06-01] MEDS: lactobacillus rhamnosus 10,000 MMU CELLS/CAPSULE PO SCH ×2 (09:05→20:14)
[2019-06-01] MEDS: predniSONE 20 mg tablet PEG SCH (09:07)
[2019-06-01] MEDS: oxybutynin 5mg per 5ml oral solution PEG SCH ×2 (09:08→20:19)
[2019-06-01] MEDS: amiodarone 100mg tablet PEG SCH (09:08)
[2019-06-01] MEDS: HYDROcodone/acetaminophen 5mg/325mg tablet PO PRN ×2 (09:14→20:14)
[2019-06-01] MEDS: [UNRECOGNIZED DRUG - OTHER] IH PRN (09:28)
[2019-06-01] MEDS: UMECLIDINIUM BROMIDE IH PRN (09:28)
--- NOTE | 2019-06-01 13:33 | NUR ---
Paged Dr. Sanchez: PAGER ID: [phone] MESSAGE: RE: Zhane Elam [phone] Can we order an Incentive spirometer for patient? Thank you. Jolie [phone]
[2019-06-01] MEDS: guaiFENesin/codeine phos 10ml UD oral syrup PEG PRN (13:40)
--- NOTE | 2019-06-01 13:47 | NUR ---
New order from Dr. Sanchez: Incentive spirometer
--- NOTE | 2019-06-01 14:08 | NUR ---
reassessment: Pt tolerating bolus feeds at goal w/ minimal residuals. LBM 05/27. LIU d/w RN regarding routine bowel care per MD approval. Will continue to monitor. Recommendations: 1) Bolus feedings via PEG QID at 0800, 1200, 1600, and 2000 using Jevity 1.2 at 300 mL/bolus. Initiate at 150 mL bolus and advance by 50 mL per bolus to goal as tolerated. To provide total volume 1200 mL/day, 1440 kcals, 968 mL water, and 67 g protein 2) Water flush 60 mL before and after each bolus feed 3) Prealbumin q ; daily weight 4) Routine bowel care 5) PO diet advancement as medically indicated per MD and ST recs Addendum: 06/01/19 at [address] Amended: Links added.
[2019-06-01] MEDS ORDERED: furosemide 20 MG/2 ML vial IV ONE (16:55)
--- NOTE | 2019-06-01 18:32 | NUR ---
Problems reprioritized. Patient report given, questions answered & plan of care reviewed with Agustin AARON. Patient stable at transfer of care.
--- NOTE | 2019-06-01 18:33 | NUR ---
Student documentation: I have reviewed and agree with all interventions, assessments performed and documented by Haritha AARON. Student Medication Administration: For this medication-pass time frame, all medication were reviewed, dispensed, administered and documented per hospital policy by Haritha AARON. Addendum: 06/01/19 at 1835 by Jolie Mcpherson RN Haritha MARTINEZ
[2019-06-01] MEDS: magnesium hydroxide 30ml (MOM) UD suspension PEG PRN (20:12)
[2019-06-01] MEDS: nystatin 15 GM powder TP PRN (21:03)
--- NOTE | 2019-06-02 00:02 | NUR ---
2000 BS taken late/ Bs was 149. Addendum: 06/02/19 at 0003 by Yessi Monte RN Amended: Links added.
--- NOTE | 2019-06-02 01:15 | NUR ---
Patient's HR has gone up to 115, 116, 118's. Julito Carter MD has been notified. He would like to watch her HR for the next few hours to see if it goes any higher, then re-evaluate medication options. Will continue to monitor.
[2019-06-02] MEDS: ipratropium/albuterol 3ml nebule NEB SCH ×4 (02:52→15:19)
[2019-06-02 03:00] VITALS: BP 94/63
[2019-06-02] MEDS: HYDROcodone/acetaminophen 5mg/325mg tablet PO PRN (06:00)
[2019-06-02 06:12] LABS: BASOPHILS % (AUTO) 0.1 % (0-1); EOSINOPHILS % (AUTO) 0.1 % (0-6); HEMATOCRIT 34.7 % (35.0-45.0); HEMOGLOBIN 11.6 g/dl (12.0-16.0); LYMPHOCYTES # (AUTO) 0.9 X10'3 (1.1-4.8); LYMPHOCYTES % (AUTO) 6.7 % (21-51); MEAN CORPUSCULAR HEMOGLOBIN 29.2 PG (27.0-31.0); MEAN CORPUSCULAR HGB CONC 33.3 g/dL (33.0-36.5); MEAN CORPUSCULAR VOLUME 87.6 FL (78-98); MONOCYTES # (AUTO) 0.8 X10'3 (0-0.9); MONOCYTES % (AUTO) 6.4 % (2-12); NEUTROPHILS # (AUTO) 11.2 X10'3 (1.8-7.7); NEUTROPHILS % (AUTO) 86.7 % (42-75); PLATELET COUNT 95 X10'3 (140-440); RED BLOOD COUNT 3.97 X10'6 (4.20-5.60); RED CELL DISTRIBUTION WIDTH 17.2 % (11.5-14.5); WHITE BLOOD COUNT 12.9 X10'3 (4.5-11.0)
--- NOTE | 2019-06-02 06:18 | NUR ---
Problems reprioritized. Patient report given, questions answered & plan of care reviewed with AGNIESZKA Dave.
[2019-06-02 06:25] LABS: ALBUMIN 2.7 G/DL (3.4-5.0); ANION GAP 7 (8-16); BLOOD UREA NITROGEN 55 MG/DL (7-18); BUN/CREATININE RATIO 32.9 (6.6-38.0); CALCIUM 9.4 MG/DL (8.5-10.1); CHLORIDE 107 MMOL/L (99-107); CREATININE 1.67 MG/DL (0.40-0.90); GLUCOSE 131 MG/DL (70-104); POTASSIUM 5.2 MMOL/L (3.5-5.1); SODIUM 144 MMOL/L (135-145); TOTAL CARBON DIOXIDE 30.4 MMOL/L (24-32); eGFR 30 ML/MIN
--- NOTE | 2019-06-02 06:30 | NUR ---
Patient in room PCU 3021. I have received report from Yessi AARON and had the opportunity to ask questions and assume patient care. Patient asleep and in no acute distress. All immediate needs met at this time.
[2019-06-02 07:00] VITALS: BP 116/69
[2019-06-02] MEDS: heparin, porcine 5000 units/ml vial SQ SCH (08:00)
--- NOTE | 2019-06-02 08:00 | NUR ---
Patient declined tube bolus feeding. Patient stated "I just want to go home and eat"
[2019-06-02] MEDS: magnesium hydroxide 30ml (MOM) UD suspension PEG PRN (09:03)
[2019-06-02] MEDS: levoFLOXACIN-Levaquin 250mg/D5 50 ML IV SCH (09:03)
[2019-06-02] MEDS: pregabalin 25mg capsule PEG SCH (09:04)
[2019-06-02] MEDS: guaiFENesin/codeine phos 10ml UD oral syrup PEG PRN (09:04)
[2019-06-02] MEDS: lactobacillus rhamnosus 10,000 MMU CELLS/CAPSULE PO SCH (09:04)
[2019-06-02] MEDS: famotidine 20mg tablet PEG SCH (09:05)
[2019-06-02] MEDS: predniSONE 20 mg tablet PEG SCH (09:05)
[2019-06-02] MEDS: levoTHYROXINE 100mcg tablet PEG SCH (09:05)
[2019-06-02] MEDS: oxybutynin 5mg per 5ml oral solution PEG SCH (09:06)
[2019-06-02] MEDS: amiodarone 100mg tablet PEG SCH (09:06)
[2019-06-02 09:07] LABS: ANISOCYTOSIS 1+; PLATELET ESTIMATE DECREASED; TOTAL CELLS COUNTED 100
[2019-06-02 09:08] LABS: GIANT PLATELET FEW; HYPOCHROMASIA 1+; LARGE PLATELETS FEW; POLYCHROMASIA 1+
[2019-06-02 11:00] VITALS: BP 90/53
[2019-06-02] MEDS ORDERED: LEVO500T2 PO (11:49)
--- NOTE | 2019-06-02 12:00 | NUR ---
Patient declined tube feeding
[2019-06-02] MEDS: nystatin 15 GM powder TP PRN (14:03)
[2019-06-02 15:00] VITALS: BP 87/42
[2019-06-02] MEDS: [UNRECOGNIZED DRUG - OTHER] IH PRN (16:55)
[2019-06-02] MEDS: UMECLIDINIUM BROMIDE IH PRN (16:55)
--- NOTE | 2019-06-02 18:22 | NUR ---
Problems reprioritized. Patient report given, questions answered & plan of care reviewed with Yessi.Patient waiting discharge
--- NOTE | 2019-06-02 18:34 | NUR ---
Problems reprioritized. Patient report given, questions answered & plan of care reviewed with Yessi AARON. Patient awaiting discharge.
--- NOTE | 2019-06-02 18:34 | NUR ---
Student documentation: I have reviewed and agree with all interventions, assessments performed and documented by Haritha MARTINEZ. Student Medication Administration: For this medication-pass time frame, all medication were reviewed, dispensed, administered and documented per hospital policy by Haritha MARTINEZ.
--- NOTE | 2019-06-02 19:09 | NUR ---
Patient in room PCU 3021. I have received report from AGNIESZKA Dave and had the opportunity to ask questions and assume patient care. Patient is discharged and has left building at approximately 1900 with her daughter, Frances. She was escorted out via wheelchair by AGNIESZKA Jacob and CLIF Clarke. All belongings sent with patient, discharge ppw explained and new medication explained. Tele box 43 removed and placed in tele room.
== END 2019-06-02 19:17 | disposition home health service (06) | DRG 177 ==
LOC: ER 13:19 → ED HOLD 15:07 → PCU 3S 17:40
PROVIDERS: ADMIT Family Medicine; ATTEND Hospitalist
DX: J69.0 Pneumonitis due to inhalation of food and vomit (principal); I21.A1 Myocardial infarction type 2; N17.9 Acute kidney failure, unspecified; I13.0 Hypertensive heart and chronic kidney disease with heart failure and stage 1 through stage 4 chronic kidney disease, or unspecified chronic kidney disease; I50.32 Chronic diastolic (congestive) heart failure; N18.9 Chronic kidney disease, unspecified; D69.6 Thrombocytopenia, unspecified; E89.0 Postprocedural hypothyroidism; G89.4 Chronic pain syndrome; I25.10 Atherosclerotic heart disease of native coronary artery without angina pectoris; I34.0 Nonrheumatic mitral (valve) insufficiency; I48.91 Unspecified atrial fibrillation; J43.9 Emphysema, unspecified; Z86.73 Personal history of transient ischemic attack (TIA), and cerebral infarction without residual deficits; Z93.0 Tracheostomy status; Z87.11 Personal history of peptic ulcer disease; Z95.1 Presence of aortocoronary bypass graft; Z95.5 Presence of coronary angioplasty implant and graft; Z88.8 Allergy status to other drugs, medicaments and biological substances; Z83.3 Family history of diabetes mellitus; Z82.5 Family history of asthma and other chronic lower respiratory diseases; Z84.89 Family history of other specified conditions
CPT/HCPCS: 36415; 36600; 71045; 76937; 80048; 80053; 81001; 82803; 82948; 83880; 84134; 84145; 84484; 85018; 85025; 85610; 87040; 87077; 87081; 87088; 87186; 92508; 92616; 93005; 94640; 94760; 96365; 97110; 97161; 97530; 99285; G0378; J1644; J1940; J1956; J3490; J7030; J7512

== ENCOUNTER 2019-06-19 09:08 | Day surgery (SDC) | payer MEDICARE, MEDICAID ==
[~2019-06-19 09:08] MED LIST changes: -BENZ-49 PO; -DOCU-20 PO; -LIDO700A47 TP; -NYST1000 GT; -PRED20TA PO
[2019-06-19] MEDS ORDERED: LIDOcaine 2% 5ml jelly ONE (10:28)
== END 2019-06-19 12:00 | disposition home or self-care (01) ==
LOC: WOUND CARE 09:08
PROVIDERS: ATTEND Surgery
DX: T81.89XA Other complications of procedures, not elsewhere classified, initial encounter (principal); E10.621 Type 1 diabetes mellitus with foot ulcer; L97.421 Non-pressure chronic ulcer of left heel and midfoot limited to breakdown of skin; L89.623 Pressure ulcer of left heel, stage 3; E10.22 Type 1 diabetes mellitus with diabetic chronic kidney disease; I13.0 Hypertensive heart and chronic kidney disease with heart failure and stage 1 through stage 4 chronic kidney disease, or unspecified chronic kidney disease; I50.43 Acute on chronic combined systolic (congestive) and diastolic (congestive) heart failure; N18.9 Chronic kidney disease, unspecified; E10.42 Type 1 diabetes mellitus with diabetic polyneuropathy; E10.65 Type 1 diabetes mellitus with hyperglycemia; E10.51 Type 1 diabetes mellitus with diabetic peripheral angiopathy without gangrene; E10.649 Type 1 diabetes mellitus with hypoglycemia without coma; J44.9 Chronic obstructive pulmonary disease, unspecified; M19.90 Unspecified osteoarthritis, unspecified site; I25.10 Atherosclerotic heart disease of native coronary artery without angina pectoris; G89.4 Chronic pain syndrome; I25.2 Old myocardial infarction; E89.0 Postprocedural hypothyroidism; I48.91 Unspecified atrial fibrillation; I48.20 Chronic atrial fibrillation, unspecified; F03.90 Unspecified dementia, unspecified severity, without behavioral disturbance, psychotic disturbance, mood disturbance, and anxiety; Z79.890 Hormone replacement therapy; Z79.4 Long term (current) use of insulin; Z79.899 Other long term (current) drug therapy; Z96.642 Presence of left artificial hip joint; Z95.5 Presence of coronary angioplasty implant and graft; Z86.73 Personal history of transient ischemic attack (TIA), and cerebral infarction without residual deficits; Z85.828 Personal history of other malignant neoplasm of skin; Z95.1 Presence of aortocoronary bypass graft; Y83.8 Other surgical procedures as the cause of abnormal reaction of the patient, or of later complication, without mention of misadventure at the time of the procedure
CPT/HCPCS: 11042; 36416; 82948; A6209; A6021; A6154; A6446

== ENCOUNTER 2019-06-26 10:45 | Day surgery (SDC) | payer MEDICARE, MEDICAID ==
[2019-06-26] MEDS ORDERED: LIDOcaine 2% 5ml jelly ONE (11:40)
== END 2019-06-26 12:21 | disposition home or self-care (01) ==
LOC: WOUND CARE 10:45
PROVIDERS: ATTEND Surgery
DX: T81.89XD Other complications of procedures, not elsewhere classified, subsequent encounter (principal); E11.621 Type 2 diabetes mellitus with foot ulcer; L97.421 Non-pressure chronic ulcer of left heel and midfoot limited to breakdown of skin; L89.623 Pressure ulcer of left heel, stage 3; I13.0 Hypertensive heart and chronic kidney disease with heart failure and stage 1 through stage 4 chronic kidney disease, or unspecified chronic kidney disease; I50.43 Acute on chronic combined systolic (congestive) and diastolic (congestive) heart failure; N18.9 Chronic kidney disease, unspecified; E11.42 Type 2 diabetes mellitus with diabetic polyneuropathy; E11.65 Type 2 diabetes mellitus with hyperglycemia; E11.51 Type 2 diabetes mellitus with diabetic peripheral angiopathy without gangrene; E11.649 Type 2 diabetes mellitus with hypoglycemia without coma; J44.9 Chronic obstructive pulmonary disease, unspecified; M19.90 Unspecified osteoarthritis, unspecified site; I25.10 Atherosclerotic heart disease of native coronary artery without angina pectoris; G89.4 Chronic pain syndrome; I25.2 Old myocardial infarction; E89.0 Postprocedural hypothyroidism; I48.91 Unspecified atrial fibrillation; I48.20 Chronic atrial fibrillation, unspecified; F03.90 Unspecified dementia, unspecified severity, without behavioral disturbance, psychotic disturbance, mood disturbance, and anxiety; Z79.890 Hormone replacement therapy; Z79.4 Long term (current) use of insulin; Z79.899 Other long term (current) drug therapy; Z96.642 Presence of left artificial hip joint; Z95.5 Presence of coronary angioplasty implant and graft; Z86.73 Personal history of transient ischemic attack (TIA), and cerebral infarction without residual deficits; Z85.828 Personal history of other malignant neoplasm of skin; Z95.1 Presence of aortocoronary bypass graft; Y83.8 Other surgical procedures as the cause of abnormal reaction of the patient, or of later complication, without mention of misadventure at the time of the procedure
CPT/HCPCS: 11042; 36416; A6209; A4663; A6021; A6154; A6446

== ENCOUNTER 2019-07-07 11:30 | Day surgery (SDC) | payer MEDICARE, MEDICAID ==
[2019-07-07] MEDS ORDERED: LIDOcaine 2% 5ml jelly ONE (12:19)
== END 2019-07-07 13:15 | disposition home or self-care (01) ==
LOC: WOUND CARE 11:30
PROVIDERS: ATTEND Surgery
DX: T81.89XD Other complications of procedures, not elsewhere classified, subsequent encounter (principal); E11.621 Type 2 diabetes mellitus with foot ulcer; L97.421 Non-pressure chronic ulcer of left heel and midfoot limited to breakdown of skin; L89.623 Pressure ulcer of left heel, stage 3; I13.0 Hypertensive heart and chronic kidney disease with heart failure and stage 1 through stage 4 chronic kidney disease, or unspecified chronic kidney disease; I50.43 Acute on chronic combined systolic (congestive) and diastolic (congestive) heart failure; N18.9 Chronic kidney disease, unspecified; E11.42 Type 2 diabetes mellitus with diabetic polyneuropathy; E11.65 Type 2 diabetes mellitus with hyperglycemia; E11.51 Type 2 diabetes mellitus with diabetic peripheral angiopathy without gangrene; E11.649 Type 2 diabetes mellitus with hypoglycemia without coma; J44.9 Chronic obstructive pulmonary disease, unspecified; M19.90 Unspecified osteoarthritis, unspecified site; I25.10 Atherosclerotic heart disease of native coronary artery without angina pectoris; G89.4 Chronic pain syndrome; I25.2 Old myocardial infarction; E89.0 Postprocedural hypothyroidism; I48.91 Unspecified atrial fibrillation; I48.20 Chronic atrial fibrillation, unspecified; F03.90 Unspecified dementia, unspecified severity, without behavioral disturbance, psychotic disturbance, mood disturbance, and anxiety; Z79.890 Hormone replacement therapy; Z79.4 Long term (current) use of insulin; Z79.899 Other long term (current) drug therapy; Z96.642 Presence of left artificial hip joint; Z95.5 Presence of coronary angioplasty implant and graft; Z86.73 Personal history of transient ischemic attack (TIA), and cerebral infarction without residual deficits; Z85.828 Personal history of other malignant neoplasm of skin; Z95.1 Presence of aortocoronary bypass graft; Y83.8 Other surgical procedures as the cause of abnormal reaction of the patient, or of later complication, without mention of misadventure at the time of the procedure
CPT/HCPCS: 36416; 82948; 97597; A6209; A4663; A6021; A6154; A6446

== ENCOUNTER 2019-07-17 13:23 | Emergency (ER) | payer MEDICARE, MEDICAID ==
[~2019-07-17] VITALS: Ht 144.8 cm; Wt 81.8 kg
[2019-07-17 14:14] LABS: BASOPHILS # (AUTO) 0.1 X10'3 (0-0.2); BASOPHILS % (AUTO) 1.4 % (0-1); EOSINOPHILS # (AUTO) 0.2 X10'3 (0-0.9); EOSINOPHILS % (AUTO) 3.5 % (0-6); HEMATOCRIT 35.8 % (35.0-45.0); LYMPHOCYTES # (AUTO) 0.8 X10'3 (1.1-4.8); LYMPHOCYTES % (AUTO) 15.5 % (21-51); MEAN CORPUSCULAR HEMOGLOBIN 29.3 PG (27.0-31.0); MEAN CORPUSCULAR HGB CONC 33.4 g/dL (33.0-36.5); MEAN CORPUSCULAR VOLUME 87.6 FL (78-98); MEAN PLATELET VOLUME 10.6 FL (7.4-10.4); MONOCYTES # (AUTO) 0.7 X10'3 (0-0.9); MONOCYTES % (AUTO) 12.3 % (2-12); NEUTROPHILS # (AUTO) 3.6 X10'3 (1.8-7.7); NEUTROPHILS % (AUTO) 67.3 % (42-75); PLATELET COUNT 115 X10'3 (140-440); RED BLOOD COUNT 4.09 X10'6 (4.20-5.60); RED CELL DISTRIBUTION WIDTH 15.6 % (11.5-14.5); WHITE BLOOD COUNT 5.3 X10'3 (4.5-11.0)
[2019-07-17 14:28] LABS: PARTIAL THROMBOPLASTIN TIME 29 SECONDS (22-32)
[2019-07-17 14:35] LABS: LARGE PLATELETS FEW; PLATELET ESTIMATE DECREASED
[2019-07-17 14:36] LABS: ALANINE AMINOTRANSFERASE 11 U/L (12-78); ALBUMIN 3.3 G/DL (3.4-5.0); ALBUMIN/GLOBULIN RATIO 0.8 (1.1-1.5); ALKALINE PHOSPHATASE 127 IU/L (46-116); ANION GAP 7 (8-16); ASPARTATE AMINO TRANSFERASE 19 U/L (10-37); BILIRUBIN,TOTAL 0.5 MG/DL (0.1-1.0); BLOOD UREA NITROGEN 35 MG/DL (7-18); BUN/CREATININE RATIO 23.2 (6.6-38.0); CHLORIDE 104 MMOL/L (99-107); CREATININE 1.51 MG/DL (0.40-0.90); GLUCOSE 107 MG/DL (70-104); POTASSIUM 3.8 MMOL/L (3.5-5.1); SODIUM 140 MMOL/L (135-145); TOTAL CARBON DIOXIDE 29.5 MMOL/L (24-32); TOTAL PROTEIN 7.3 G/DL (6.4-8.2); eGFR 33 ML/MIN
[2019-07-17] MEDS ORDERED: LEVO750T21 PO (18:23)
[2019-07-17] MEDS ORDERED: BENZ-16 PO (18:26)
[2019-07-17 19:22] VITALS: BP 140/67
== END 2019-07-17 19:26 | disposition home or self-care (01) ==
LOC: ER 13:23
DX: R05 Cough (principal); R06.02 Shortness of breath; I48.91 Unspecified atrial fibrillation; I25.10 Atherosclerotic heart disease of native coronary artery without angina pectoris; I11.0 Hypertensive heart disease with heart failure; I50.9 Heart failure, unspecified; J44.9 Chronic obstructive pulmonary disease, unspecified; F03.90 Unspecified dementia, unspecified severity, without behavioral disturbance, psychotic disturbance, mood disturbance, and anxiety; G62.9 Polyneuropathy, unspecified; Z86.2 Personal history of diseases of the blood and blood-forming organs and certain disorders involving the immune mechanism; Z86.73 Personal history of transient ischemic attack (TIA), and cerebral infarction without residual deficits; G89.29 Other chronic pain; Z98.61 Coronary angioplasty status; Z95.1 Presence of aortocoronary bypass graft; Z98.890 Other specified postprocedural states; Z56.0 Unemployment, unspecified; Z88.1 Allergy status to other antibiotic agents; Z88.8 Allergy status to other drugs, medicaments and biological substances; Z79.899 Other long term (current) drug therapy
CPT/HCPCS: 36415; 71045; 80053; 84484; 85025; 85610; 85730; 93005; 99284

== ENCOUNTER → 2019-07-30 | Day surgery (SDC) | payer MEDICARE, MEDICAID ==
[~2019-07-30] MED LIST changes: +BENZ-16 PO; +LIDOcaine 2% 5ml jelly ONE
== END | disposition home or self-care (01) ==
LOC: WOUND CARE 11:15
PROVIDERS: ATTEND Surgery
DX: T81.89XD Other complications of procedures, not elsewhere classified, subsequent encounter (principal); E11.621 Type 2 diabetes mellitus with foot ulcer; L97.421 Non-pressure chronic ulcer of left heel and midfoot limited to breakdown of skin; L89.623 Pressure ulcer of left heel, stage 3; E11.622 Type 2 diabetes mellitus with other skin ulcer; L97.821 Non-pressure chronic ulcer of other part of left lower leg limited to breakdown of skin; E11.22 Type 2 diabetes mellitus with diabetic chronic kidney disease; I13.0 Hypertensive heart and chronic kidney disease with heart failure and stage 1 through stage 4 chronic kidney disease, or unspecified chronic kidney disease; I50.43 Acute on chronic combined systolic (congestive) and diastolic (congestive) heart failure; N18.9 Chronic kidney disease, unspecified; E11.42 Type 2 diabetes mellitus with diabetic polyneuropathy; E11.65 Type 2 diabetes mellitus with hyperglycemia; E11.51 Type 2 diabetes mellitus with diabetic peripheral angiopathy without gangrene; E11.649 Type 2 diabetes mellitus with hypoglycemia without coma; J44.9 Chronic obstructive pulmonary disease, unspecified; M19.90 Unspecified osteoarthritis, unspecified site; I25.10 Atherosclerotic heart disease of native coronary artery without angina pectoris; G89.4 Chronic pain syndrome; I25.2 Old myocardial infarction; E89.0 Postprocedural hypothyroidism; I48.91 Unspecified atrial fibrillation; I48.20 Chronic atrial fibrillation, unspecified; F03.90 Unspecified dementia, unspecified severity, without behavioral disturbance, psychotic disturbance, mood disturbance, and anxiety; Z79.890 Hormone replacement therapy; Z79.4 Long term (current) use of insulin; Z79.899 Other long term (current) drug therapy; Z96.642 Presence of left artificial hip joint; Z95.5 Presence of coronary angioplasty implant and graft; Z86.73 Personal history of transient ischemic attack (TIA), and cerebral infarction without residual deficits; Z85.828 Personal history of other malignant neoplasm of skin; Z95.1 Presence of aortocoronary bypass graft; Y83.8 Other surgical procedures as the cause of abnormal reaction of the patient, or of later complication, without mention of misadventure at the time of the procedure
CPT/HCPCS: 36416; 82948; 97597; A6021; A6154; A6446

== ENCOUNTER 2019-08-09 11:54 | Emergency (ER) | payer MEDICARE, MEDICAID ==
[~2019-08-09] VITALS: Ht 142.2 cm; Wt 72.0 kg
[~2019-08-09 11:54] MED LIST changes: -LIDOcaine 2% 5ml jelly ONE
[2019-08-09] MEDS ORDERED: normal saline 1000ML IV soln IVB ONE ×2 (13:20)
[2019-08-09] MEDS ORDERED: methylPREDNISolone sod succ 125mg/2ml vial IV ONE (13:20)
[2019-08-09] MEDS ORDERED: azithromycin 250mg tablet PO ONE (13:20)
[2019-08-09 14:17] LABS: BASOPHILS # (AUTO) 0.1 X10'3 (0-0.2); BASOPHILS % (AUTO) 0.9 % (0-1); EOSINOPHILS # (AUTO) 0.2 X10'3 (0-0.9); EOSINOPHILS % (AUTO) 3.8 % (0-6); HEMATOCRIT 35.5 % (35.0-45.0); HEMOGLOBIN 11.9 g/dl (12.0-16.0); LYMPHOCYTES # (AUTO) 0.7 X10'3 (1.1-4.8); LYMPHOCYTES % (AUTO) 11.1 % (21-51); MEAN CORPUSCULAR HEMOGLOBIN 29.1 PG (27.0-31.0); MEAN CORPUSCULAR HGB CONC 33.6 g/dL (33.0-36.5); MEAN CORPUSCULAR VOLUME 86.7 FL (78-98); MEAN PLATELET VOLUME 10.9 FL (7.4-10.4); MONOCYTES # (AUTO) 0.8 X10'3 (0-0.9); MONOCYTES % (AUTO) 12.7 % (2-12); NEUTROPHILS # (AUTO) 4.5 X10'3 (1.8-7.7); NEUTROPHILS % (AUTO) 71.5 % (42-75); PLATELET COUNT 82 X10'3 (140-440); RED CELL DISTRIBUTION WIDTH 15.2 % (11.5-14.5); WHITE BLOOD COUNT 6.3 X10'3 (4.5-11.0)
[2019-08-09 14:24] LABS: PARTIAL THROMBOPLASTIN TIME 30 SECONDS (22-32)
[2019-08-09] MEDS ORDERED: methylPREDNISolone sod succ 125mg/2ml vial IM ONE (14:30)
[2019-08-09 14:36] LABS: ALANINE AMINOTRANSFERASE 16 U/L (12-78); ALBUMIN 3.6 G/DL (3.4-5.0); ALKALINE PHOSPHATASE 138 IU/L (46-116); ANION GAP 7 (8-16); ASPARTATE AMINO TRANSFERASE 16 U/L (10-37); BILIRUBIN,TOTAL 0.9 MG/DL (0.1-1.0); BLOOD UREA NITROGEN 34 MG/DL (7-18); BUN/CREATININE RATIO 18.4 (6.6-38.0); CALCIUM 9.2 MG/DL (8.5-10.1); CHLORIDE 105 MMOL/L (99-107); CREATININE 1.85 MG/DL (0.40-0.90); GLUCOSE 106 MG/DL (70-104); POTASSIUM 3.6 MMOL/L (3.5-5.1); SODIUM 142 MMOL/L (135-145); TOTAL CARBON DIOXIDE 30.4 MMOL/L (24-32); TOTAL PROTEIN 7.2 G/DL (6.4-8.2); eGFR 26 ML/MIN
[2019-08-09] MEDS ORDERED: furosemide 10 MG/1 ML 10ml inj IM ONE (14:50)
[2019-08-09 15:56] VITALS: BP 141/68
== END 2019-08-09 15:54 | disposition home or self-care (01) ==
LOC: ER 11:54
DX: I11.0 Hypertensive heart disease with heart failure (principal); I50.9 Heart failure, unspecified; I48.91 Unspecified atrial fibrillation; E11.42 Type 2 diabetes mellitus with diabetic polyneuropathy; J44.9 Chronic obstructive pulmonary disease, unspecified; M79.18 Myalgia, other site; G89.29 Other chronic pain; Z86.2 Personal history of diseases of the blood and blood-forming organs and certain disorders involving the immune mechanism; Z86.73 Personal history of transient ischemic attack (TIA), and cerebral infarction without residual deficits; Z98.61 Coronary angioplasty status; Z95.1 Presence of aortocoronary bypass graft; Z98.890 Other specified postprocedural states; Z88.1 Allergy status to other antibiotic agents; Z88.8 Allergy status to other drugs, medicaments and biological substances; Z79.899 Other long term (current) drug therapy
CPT/HCPCS: 36415; 71045; 80053; 83605; 83880; 84484; 85025; 85610; 85730; 87040; 93005; 96372; 99284; J1940; J2930

== ENCOUNTER 2019-08-14 10:10 | Day surgery (SDC) | payer MEDICARE, MEDICAID ==
[2019-08-14] MEDS ORDERED: LIDOcaine 2% 5ml jelly ONE (10:43)
== END 2019-08-14 12:17 | disposition home or self-care (01) ==
LOC: WOUND CARE 10:10
PROVIDERS: ATTEND Nurse Practitioner Family
DX: T81.89XD Other complications of procedures, not elsewhere classified, subsequent encounter (principal); E11.621 Type 2 diabetes mellitus with foot ulcer; L97.421 Non-pressure chronic ulcer of left heel and midfoot limited to breakdown of skin; L89.623 Pressure ulcer of left heel, stage 3; E11.622 Type 2 diabetes mellitus with other skin ulcer; L97.821 Non-pressure chronic ulcer of other part of left lower leg limited to breakdown of skin; E11.22 Type 2 diabetes mellitus with diabetic chronic kidney disease; I13.0 Hypertensive heart and chronic kidney disease with heart failure and stage 1 through stage 4 chronic kidney disease, or unspecified chronic kidney disease; I50.43 Acute on chronic combined systolic (congestive) and diastolic (congestive) heart failure; N18.9 Chronic kidney disease, unspecified; E11.42 Type 2 diabetes mellitus with diabetic polyneuropathy; E11.65 Type 2 diabetes mellitus with hyperglycemia; E11.51 Type 2 diabetes mellitus with diabetic peripheral angiopathy without gangrene; E11.649 Type 2 diabetes mellitus with hypoglycemia without coma; J44.9 Chronic obstructive pulmonary disease, unspecified; M19.90 Unspecified osteoarthritis, unspecified site; I25.10 Atherosclerotic heart disease of native coronary artery without angina pectoris; G89.4 Chronic pain syndrome; I25.2 Old myocardial infarction; E89.0 Postprocedural hypothyroidism; I48.91 Unspecified atrial fibrillation; I48.20 Chronic atrial fibrillation, unspecified; F03.90 Unspecified dementia, unspecified severity, without behavioral disturbance, psychotic disturbance, mood disturbance, and anxiety; Z79.890 Hormone replacement therapy; Z79.4 Long term (current) use of insulin; Z79.899 Other long term (current) drug therapy; Z96.642 Presence of left artificial hip joint; Z95.5 Presence of coronary angioplasty implant and graft; Z86.73 Personal history of transient ischemic attack (TIA), and cerebral infarction without residual deficits; Z85.828 Personal history of other malignant neoplasm of skin; Z95.1 Presence of aortocoronary bypass graft; Y83.8 Other surgical procedures as the cause of abnormal reaction of the patient, or of later complication, without mention of misadventure at the time of the procedure
CPT/HCPCS: 97597; A4663; A6021; A6154; A6446

== ENCOUNTER 2019-08-21 11:00 | Day surgery (SDC) | payer MEDICARE, MEDICAID ==
[~2019-08-21 11:00] MED LIST changes: -BENZ-16 PO
[2019-08-21] MEDS ORDERED: LIDOcaine 2% 5ml jelly ONE (11:23)
== END 2019-08-21 12:09 | disposition home or self-care (01) ==
LOC: WOUND CARE 11:00
PROVIDERS: ATTEND Surgery
DX: T81.89XD Other complications of procedures, not elsewhere classified, subsequent encounter (principal); E11.621 Type 2 diabetes mellitus with foot ulcer; L97.421 Non-pressure chronic ulcer of left heel and midfoot limited to breakdown of skin; L89.623 Pressure ulcer of left heel, stage 3; E11.622 Type 2 diabetes mellitus with other skin ulcer; L97.821 Non-pressure chronic ulcer of other part of left lower leg limited to breakdown of skin; E11.22 Type 2 diabetes mellitus with diabetic chronic kidney disease; I13.0 Hypertensive heart and chronic kidney disease with heart failure and stage 1 through stage 4 chronic kidney disease, or unspecified chronic kidney disease; I50.43 Acute on chronic combined systolic (congestive) and diastolic (congestive) heart failure; N18.9 Chronic kidney disease, unspecified; E11.42 Type 2 diabetes mellitus with diabetic polyneuropathy; E11.65 Type 2 diabetes mellitus with hyperglycemia; E11.51 Type 2 diabetes mellitus with diabetic peripheral angiopathy without gangrene; E11.649 Type 2 diabetes mellitus with hypoglycemia without coma; J44.9 Chronic obstructive pulmonary disease, unspecified; M19.90 Unspecified osteoarthritis, unspecified site; I25.10 Atherosclerotic heart disease of native coronary artery without angina pectoris; G89.4 Chronic pain syndrome; I25.2 Old myocardial infarction; E89.0 Postprocedural hypothyroidism; I48.91 Unspecified atrial fibrillation; I48.20 Chronic atrial fibrillation, unspecified; F03.90 Unspecified dementia, unspecified severity, without behavioral disturbance, psychotic disturbance, mood disturbance, and anxiety; Z79.890 Hormone replacement therapy; Z79.4 Long term (current) use of insulin; Z79.899 Other long term (current) drug therapy; Z96.642 Presence of left artificial hip joint; Z95.5 Presence of coronary angioplasty implant and graft; Z86.73 Personal history of transient ischemic attack (TIA), and cerebral infarction without residual deficits; Z85.828 Personal history of other malignant neoplasm of skin; Z95.1 Presence of aortocoronary bypass graft; Y83.8 Other surgical procedures as the cause of abnormal reaction of the patient, or of later complication, without mention of misadventure at the time of the procedure
CPT/HCPCS: 36416; 82948; 97597; A6209; A4663; A6021; A6154; A6446

== ENCOUNTER 2019-09-02 12:55 | Day surgery (SDC) | payer MEDICARE, MEDICAID ==
[2019-09-02] MEDS ORDERED: LIDOcaine 2% 5ml jelly ONE (13:16)
== END 2019-09-02 13:59 | disposition home or self-care (01) ==
LOC: WOUND CARE 12:55
PROVIDERS: ATTEND Nurse Practitioner Family
DX: T81.89XD Other complications of procedures, not elsewhere classified, subsequent encounter (principal); E11.621 Type 2 diabetes mellitus with foot ulcer; L97.421 Non-pressure chronic ulcer of left heel and midfoot limited to breakdown of skin; L89.623 Pressure ulcer of left heel, stage 3; E11.622 Type 2 diabetes mellitus with other skin ulcer; L97.821 Non-pressure chronic ulcer of other part of left lower leg limited to breakdown of skin; E11.22 Type 2 diabetes mellitus with diabetic chronic kidney disease; I13.0 Hypertensive heart and chronic kidney disease with heart failure and stage 1 through stage 4 chronic kidney disease, or unspecified chronic kidney disease; I50.43 Acute on chronic combined systolic (congestive) and diastolic (congestive) heart failure; N18.9 Chronic kidney disease, unspecified; E11.42 Type 2 diabetes mellitus with diabetic polyneuropathy; E11.65 Type 2 diabetes mellitus with hyperglycemia; E11.51 Type 2 diabetes mellitus with diabetic peripheral angiopathy without gangrene; E11.649 Type 2 diabetes mellitus with hypoglycemia without coma; J44.9 Chronic obstructive pulmonary disease, unspecified; M19.90 Unspecified osteoarthritis, unspecified site; I25.10 Atherosclerotic heart disease of native coronary artery without angina pectoris; G89.4 Chronic pain syndrome; I25.2 Old myocardial infarction; E89.0 Postprocedural hypothyroidism; I48.91 Unspecified atrial fibrillation; I48.20 Chronic atrial fibrillation, unspecified; F03.90 Unspecified dementia, unspecified severity, without behavioral disturbance, psychotic disturbance, mood disturbance, and anxiety; Z79.890 Hormone replacement therapy; Z79.4 Long term (current) use of insulin; Z79.899 Other long term (current) drug therapy; Z96.642 Presence of left artificial hip joint; Z95.5 Presence of coronary angioplasty implant and graft; Z86.73 Personal history of transient ischemic attack (TIA), and cerebral infarction without residual deficits; Z85.828 Personal history of other malignant neoplasm of skin; Z95.1 Presence of aortocoronary bypass graft; Y83.8 Other surgical procedures as the cause of abnormal reaction of the patient, or of later complication, without mention of misadventure at the time of the procedure
CPT/HCPCS: 36416; 82948; 97597; A4663; A6021; A6154; A6446

== ENCOUNTER 2019-09-05 13:49 | Emergency (ER) | payer MEDICARE, MEDICAID ==
[~2019-09-05] VITALS: Ht 142.2 cm; Wt 69.0 kg
[2019-09-05] MEDS ORDERED: DOXY100C43 PO (14:13)
[2019-09-05 14:27] VITALS: BP 128/70
== END 2019-09-05 14:29 | disposition home or self-care (01) ==
LOC: ER 13:49
DX: J20.9 Acute bronchitis, unspecified (principal); I48.91 Unspecified atrial fibrillation; I25.10 Atherosclerotic heart disease of native coronary artery without angina pectoris; J44.9 Chronic obstructive pulmonary disease, unspecified; I11.0 Hypertensive heart disease with heart failure; I50.9 Heart failure, unspecified; E11.42 Type 2 diabetes mellitus with diabetic polyneuropathy; G89.29 Other chronic pain; Z87.11 Personal history of peptic ulcer disease; Z86.73 Personal history of transient ischemic attack (TIA), and cerebral infarction without residual deficits; Z95.5 Presence of coronary angioplasty implant and graft; Z95.1 Presence of aortocoronary bypass graft; Z98.890 Other specified postprocedural states; Z56.0 Unemployment, unspecified; Z88.1 Allergy status to other antibiotic agents; Z88.8 Allergy status to other drugs, medicaments and biological substances; Z79.899 Other long term (current) drug therapy
CPT/HCPCS: 99283

== ENCOUNTER 2019-09-09 12:30 | Day surgery (SDC) | payer MEDICARE, MEDICAID ==
[~2019-09-09 12:30] MED LIST changes: +DOXY100C43 PO
[2019-09-09] MEDS ORDERED: LIDOcaine 2% 5ml jelly ONE (12:51)
== END 2019-09-09 14:00 | disposition home or self-care (01) ==
LOC: WOUND CARE 12:30
PROVIDERS: ATTEND Nurse Practitioner Family
DX: T81.89XD Other complications of procedures, not elsewhere classified, subsequent encounter (principal); E11.621 Type 2 diabetes mellitus with foot ulcer; L97.421 Non-pressure chronic ulcer of left heel and midfoot limited to breakdown of skin; L89.623 Pressure ulcer of left heel, stage 3; E11.622 Type 2 diabetes mellitus with other skin ulcer; L97.821 Non-pressure chronic ulcer of other part of left lower leg limited to breakdown of skin; E11.22 Type 2 diabetes mellitus with diabetic chronic kidney disease; I13.0 Hypertensive heart and chronic kidney disease with heart failure and stage 1 through stage 4 chronic kidney disease, or unspecified chronic kidney disease; I50.43 Acute on chronic combined systolic (congestive) and diastolic (congestive) heart failure; N18.9 Chronic kidney disease, unspecified; E11.42 Type 2 diabetes mellitus with diabetic polyneuropathy; E11.65 Type 2 diabetes mellitus with hyperglycemia; E11.51 Type 2 diabetes mellitus with diabetic peripheral angiopathy without gangrene; E11.649 Type 2 diabetes mellitus with hypoglycemia without coma; J44.9 Chronic obstructive pulmonary disease, unspecified; M19.90 Unspecified osteoarthritis, unspecified site; I25.10 Atherosclerotic heart disease of native coronary artery without angina pectoris; G89.4 Chronic pain syndrome; I25.2 Old myocardial infarction; E89.0 Postprocedural hypothyroidism; I48.91 Unspecified atrial fibrillation; I48.20 Chronic atrial fibrillation, unspecified; F03.90 Unspecified dementia, unspecified severity, without behavioral disturbance, psychotic disturbance, mood disturbance, and anxiety; Z79.890 Hormone replacement therapy; Z79.4 Long term (current) use of insulin; Z79.899 Other long term (current) drug therapy; Z96.642 Presence of left artificial hip joint; Z95.5 Presence of coronary angioplasty implant and graft; Z86.73 Personal history of transient ischemic attack (TIA), and cerebral infarction without residual deficits; Z85.828 Personal history of other malignant neoplasm of skin; Z95.1 Presence of aortocoronary bypass graft; Y83.8 Other surgical procedures as the cause of abnormal reaction of the patient, or of later complication, without mention of misadventure at the time of the procedure
CPT/HCPCS: 15271; 15275; 36416; 82948; A6209; A6222; Q4101; A4663; A6250; A6446

== ENCOUNTER 2019-09-16 12:09 | Outpatient (CLI) | payer MEDICARE, MEDICAID ==
[2019-09-16] MEDS ORDERED: dextrose ORAL solution 15 GM/59 ML bottle ONE (12:32)
[2019-09-16] MEDS ORDERED: LIDOcaine 2% 5ml jelly ONE (12:41)
[2019-09-25] MEDS ORDERED: TOBR5DRO7 RIGHTEYE (18:00)
[2019-09-25] MEDS ORDERED: LEVO75TA7 PO (18:00)
[2019-09-25] MEDS ORDERED: POTA20TA19 PO (18:00)
[2019-09-25] MEDS ORDERED: FURO40TA4 PO (18:00)
[2019-09-28] MEDS ORDERED: LEVO500T89 PO (10:44)
[2019-09-28] MEDS ORDERED: LACT1CAP26 PO (10:44)
[2019-09-28] MEDS ORDERED: PRED10TA23 PO (10:44)
[2019-09-28] MEDS ORDERED: BUDE10.22 INH (10:44)
== END 2019-09-16 13:38 | disposition home or self-care (01) ==
LOC: WOUND CARE 12:09
PROVIDERS: ATTEND Nurse Practitioner Family
DX: T81.89XD Other complications of procedures, not elsewhere classified, subsequent encounter (principal); E11.621 Type 2 diabetes mellitus with foot ulcer; L97.421 Non-pressure chronic ulcer of left heel and midfoot limited to breakdown of skin; L89.623 Pressure ulcer of left heel, stage 3; E11.622 Type 2 diabetes mellitus with other skin ulcer; L97.821 Non-pressure chronic ulcer of other part of left lower leg limited to breakdown of skin; E11.22 Type 2 diabetes mellitus with diabetic chronic kidney disease; I13.0 Hypertensive heart and chronic kidney disease with heart failure and stage 1 through stage 4 chronic kidney disease, or unspecified chronic kidney disease; I50.43 Acute on chronic combined systolic (congestive) and diastolic (congestive) heart failure; N18.9 Chronic kidney disease, unspecified; E11.42 Type 2 diabetes mellitus with diabetic polyneuropathy; E11.65 Type 2 diabetes mellitus with hyperglycemia; E11.51 Type 2 diabetes mellitus with diabetic peripheral angiopathy without gangrene; E11.649 Type 2 diabetes mellitus with hypoglycemia without coma; J44.9 Chronic obstructive pulmonary disease, unspecified; M19.90 Unspecified osteoarthritis, unspecified site; I25.10 Atherosclerotic heart disease of native coronary artery without angina pectoris; G89.4 Chronic pain syndrome; I25.2 Old myocardial infarction; E89.0 Postprocedural hypothyroidism; I48.91 Unspecified atrial fibrillation; I48.20 Chronic atrial fibrillation, unspecified; F03.90 Unspecified dementia, unspecified severity, without behavioral disturbance, psychotic disturbance, mood disturbance, and anxiety; Z79.890 Hormone replacement therapy; Z79.4 Long term (current) use of insulin; Z79.899 Other long term (current) drug therapy; Z96.642 Presence of left artificial hip joint; Z95.5 Presence of coronary angioplasty implant and graft; Z86.73 Personal history of transient ischemic attack (TIA), and cerebral infarction without residual deficits; Z85.828 Personal history of other malignant neoplasm of skin; Z95.1 Presence of aortocoronary bypass graft; Y83.8 Other surgical procedures as the cause of abnormal reaction of the patient, or of later complication, without mention of misadventure at the time of the procedure
CPT/HCPCS: 36416; 82948; G0283; G0463

== ENCOUNTER 2019-09-23 12:00 | Day surgery (SDC) | payer MEDICARE, MEDICAID ==
[~2019-09-23 12:00] MED LIST changes: -DOXY100C43 PO
[2019-09-25] MEDS ORDERED: LEVO75TA7 PO (18:00)
[2019-09-25] MEDS ORDERED: TOBR5DRO7 RIGHTEYE (18:00)
[2019-09-25] MEDS ORDERED: POTA20TA19 PO (18:00)
[2019-09-25] MEDS ORDERED: FURO40TA4 PO (18:00)
[2019-09-28] MEDS ORDERED: BUDE10.22 INH (10:44)
[2019-09-28] MEDS ORDERED: LEVO500T89 PO (10:44)
[2019-09-28] MEDS ORDERED: LACT1CAP26 PO (10:44)
[2019-09-28] MEDS ORDERED: PRED10TA23 PO (10:44)
== END 2019-09-24 13:10 | disposition home or self-care (01) ==
LOC: WOUND CARE 12:00
PROVIDERS: ATTEND Surgery
DX: T81.89XD Other complications of procedures, not elsewhere classified, subsequent encounter (principal); E11.621 Type 2 diabetes mellitus with foot ulcer; L97.421 Non-pressure chronic ulcer of left heel and midfoot limited to breakdown of skin; L89.623 Pressure ulcer of left heel, stage 3; E11.622 Type 2 diabetes mellitus with other skin ulcer; L97.821 Non-pressure chronic ulcer of other part of left lower leg limited to breakdown of skin; E11.22 Type 2 diabetes mellitus with diabetic chronic kidney disease; I13.0 Hypertensive heart and chronic kidney disease with heart failure and stage 1 through stage 4 chronic kidney disease, or unspecified chronic kidney disease; I50.43 Acute on chronic combined systolic (congestive) and diastolic (congestive) heart failure; N18.9 Chronic kidney disease, unspecified; E11.42 Type 2 diabetes mellitus with diabetic polyneuropathy; E11.65 Type 2 diabetes mellitus with hyperglycemia; E11.51 Type 2 diabetes mellitus with diabetic peripheral angiopathy without gangrene; E11.649 Type 2 diabetes mellitus with hypoglycemia without coma; J44.9 Chronic obstructive pulmonary disease, unspecified; M19.90 Unspecified osteoarthritis, unspecified site; I25.10 Atherosclerotic heart disease of native coronary artery without angina pectoris; G89.4 Chronic pain syndrome; I25.2 Old myocardial infarction; E89.0 Postprocedural hypothyroidism; I48.91 Unspecified atrial fibrillation; I48.20 Chronic atrial fibrillation, unspecified; F03.90 Unspecified dementia, unspecified severity, without behavioral disturbance, psychotic disturbance, mood disturbance, and anxiety; Z79.890 Hormone replacement therapy; Z79.4 Long term (current) use of insulin; Z79.899 Other long term (current) drug therapy; Z96.642 Presence of left artificial hip joint; Z95.5 Presence of coronary angioplasty implant and graft; Z86.73 Personal history of transient ischemic attack (TIA), and cerebral infarction without residual deficits; Z85.828 Personal history of other malignant neoplasm of skin; Z95.1 Presence of aortocoronary bypass graft; Y83.8 Other surgical procedures as the cause of abnormal reaction of the patient, or of later complication, without mention of misadventure at the time of the procedure
CPT/HCPCS: 36416; 82948; 97597

== ENCOUNTER 2019-10-02 11:58 | Day surgery (SDC) | payer MEDICARE, MEDICAID ==
[~2019-10-02 11:58] MED LIST changes: -AMIO100T PO; +BUDE10.22 INH; +FURO40TA4 PO; -GUAI118S13 PO; +LACT1CAP26 PO; -LEVO100T PO; +LEVO500T89 PO; +LEVO75TA7 PO; -ONDA8TAB13 PO; +POTA20TA19 PO; +PRED10TA23 PO; +TOBR5DRO7 RIGHTEYE
[2019-10-02] MEDS ORDERED: LIDOcaine 2% 5ml jelly ONE (12:40)
== END 2019-10-02 13:37 | disposition home or self-care (01) ==
LOC: WOUND CARE 11:58
PROVIDERS: ATTEND Surgery
DX: T81.89XD Other complications of procedures, not elsewhere classified, subsequent encounter (principal); E11.621 Type 2 diabetes mellitus with foot ulcer; L89.623 Pressure ulcer of left heel, stage 3; L97.421 Non-pressure chronic ulcer of left heel and midfoot limited to breakdown of skin; E11.622 Type 2 diabetes mellitus with other skin ulcer; L97.821 Non-pressure chronic ulcer of other part of left lower leg limited to breakdown of skin; E11.22 Type 2 diabetes mellitus with diabetic chronic kidney disease; I13.0 Hypertensive heart and chronic kidney disease with heart failure and stage 1 through stage 4 chronic kidney disease, or unspecified chronic kidney disease; I50.43 Acute on chronic combined systolic (congestive) and diastolic (congestive) heart failure; N18.9 Chronic kidney disease, unspecified; E11.42 Type 2 diabetes mellitus with diabetic polyneuropathy; E11.65 Type 2 diabetes mellitus with hyperglycemia; E11.51 Type 2 diabetes mellitus with diabetic peripheral angiopathy without gangrene; E11.649 Type 2 diabetes mellitus with hypoglycemia without coma; J44.9 Chronic obstructive pulmonary disease, unspecified; M19.90 Unspecified osteoarthritis, unspecified site; I25.10 Atherosclerotic heart disease of native coronary artery without angina pectoris; G89.4 Chronic pain syndrome; I25.2 Old myocardial infarction; E89.0 Postprocedural hypothyroidism; I48.91 Unspecified atrial fibrillation; I48.20 Chronic atrial fibrillation, unspecified; F03.90 Unspecified dementia, unspecified severity, without behavioral disturbance, psychotic disturbance, mood disturbance, and anxiety; Z79.890 Hormone replacement therapy; Z79.4 Long term (current) use of insulin; Z79.899 Other long term (current) drug therapy; Z96.642 Presence of left artificial hip joint; Z95.5 Presence of coronary angioplasty implant and graft; Z86.73 Personal history of transient ischemic attack (TIA), and cerebral infarction without residual deficits; Z85.828 Personal history of other malignant neoplasm of skin; Z95.1 Presence of aortocoronary bypass graft; Y83.8 Other surgical procedures as the cause of abnormal reaction of the patient, or of later complication, without mention of misadventure at the time of the procedure
CPT/HCPCS: 36416; 82948; 97597

== ENCOUNTER 2019-10-09 12:12 | Day surgery (SDC) | payer MEDICARE, MEDICAID ==
[2019-10-09] MEDS ORDERED: LIDOcaine 2% 5ml jelly ONE (12:42)
== END 2019-10-09 13:48 | disposition home or self-care (01) ==
LOC: WOUND CARE 12:12
PROVIDERS: ATTEND Surgery
DX: T81.89XD Other complications of procedures, not elsewhere classified, subsequent encounter (principal); E11.621 Type 2 diabetes mellitus with foot ulcer; L89.623 Pressure ulcer of left heel, stage 3; L97.421 Non-pressure chronic ulcer of left heel and midfoot limited to breakdown of skin; E11.622 Type 2 diabetes mellitus with other skin ulcer; L97.821 Non-pressure chronic ulcer of other part of left lower leg limited to breakdown of skin; E11.22 Type 2 diabetes mellitus with diabetic chronic kidney disease; I13.0 Hypertensive heart and chronic kidney disease with heart failure and stage 1 through stage 4 chronic kidney disease, or unspecified chronic kidney disease; I50.43 Acute on chronic combined systolic (congestive) and diastolic (congestive) heart failure; N18.9 Chronic kidney disease, unspecified; E11.42 Type 2 diabetes mellitus with diabetic polyneuropathy; E11.65 Type 2 diabetes mellitus with hyperglycemia; E11.51 Type 2 diabetes mellitus with diabetic peripheral angiopathy without gangrene; E11.649 Type 2 diabetes mellitus with hypoglycemia without coma; J44.9 Chronic obstructive pulmonary disease, unspecified; M19.90 Unspecified osteoarthritis, unspecified site; I25.10 Atherosclerotic heart disease of native coronary artery without angina pectoris; G89.4 Chronic pain syndrome; I25.2 Old myocardial infarction; E89.0 Postprocedural hypothyroidism; I48.91 Unspecified atrial fibrillation; I48.20 Chronic atrial fibrillation, unspecified; F03.90 Unspecified dementia, unspecified severity, without behavioral disturbance, psychotic disturbance, mood disturbance, and anxiety; Z79.890 Hormone replacement therapy; Z79.4 Long term (current) use of insulin; Z79.899 Other long term (current) drug therapy; Z96.642 Presence of left artificial hip joint; Z95.5 Presence of coronary angioplasty implant and graft; Z86.73 Personal history of transient ischemic attack (TIA), and cerebral infarction without residual deficits; Z85.828 Personal history of other malignant neoplasm of skin; Z95.1 Presence of aortocoronary bypass graft; Y83.8 Other surgical procedures as the cause of abnormal reaction of the patient, or of later complication, without mention of misadventure at the time of the procedure
CPT/HCPCS: 15275; 36416; 82948; 97597; Q4101

== ENCOUNTER 2019-10-17 10:35 | Outpatient (CLI) | payer MEDICARE, MEDICAID | END 2019-10-17 12:03 | disposition home or self-care (01) | LOC: WOUND CARE 10:35 → EDSTATUS 12:00 → WOUND CARE 12:03 | PROVIDERS: ATTEND Surgery | DX: T81.89XD Other complications of procedures, not elsewhere classified, subsequent encounter (principal); E11.621 Type 2 diabetes mellitus with foot ulcer; L89.623 Pressure ulcer of left heel, stage 3; L97.421 Non-pressure chronic ulcer of left heel and midfoot limited to breakdown of skin; E11.622 Type 2 diabetes mellitus with other skin ulcer; L97.821 Non-pressure chronic ulcer of other part of left lower leg limited to breakdown of skin; E11.22 Type 2 diabetes mellitus with diabetic chronic kidney disease; I13.0 Hypertensive heart and chronic kidney disease with heart failure and stage 1 through stage 4 chronic kidney disease, or unspecified chronic kidney disease; I50.43 Acute on chronic combined systolic (congestive) and diastolic (congestive) heart failure; N18.9 Chronic kidney disease, unspecified; E11.42 Type 2 diabetes mellitus with diabetic polyneuropathy; E11.65 Type 2 diabetes mellitus with hyperglycemia; E11.51 Type 2 diabetes mellitus with diabetic peripheral angiopathy without gangrene; E11.649 Type 2 diabetes mellitus with hypoglycemia without coma; J44.9 Chronic obstructive pulmonary disease, unspecified; M19.90 Unspecified osteoarthritis, unspecified site; I25.10 Atherosclerotic heart disease of native coronary artery without angina pectoris; G89.4 Chronic pain syndrome; I25.2 Old myocardial infarction; E89.0 Postprocedural hypothyroidism; I48.91 Unspecified atrial fibrillation; I48.20 Chronic atrial fibrillation, unspecified; F03.90 Unspecified dementia, unspecified severity, without behavioral disturbance, psychotic disturbance, mood disturbance, and anxiety; Z79.890 Hormone replacement therapy; Z79.4 Long term (current) use of insulin; Z79.899 Other long term (current) drug therapy; Z96.642 Presence of left artificial hip joint; Z95.5 Presence of coronary angioplasty implant and graft; Z86.73 Personal history of transient ischemic attack (TIA), and cerebral infarction without residual deficits; Z85.828 Personal history of other malignant neoplasm of skin; Z95.1 Presence of aortocoronary bypass graft; Y83.8 Other surgical procedures as the cause of abnormal reaction of the patient, or of later complication, without mention of misadventure at the time of the procedure | CPT/HCPCS: 36416; G0463; A4663; A6021; A6154; A6446 ==